=== PATIENT | male | born 1965 | race Caucasian/White ===

== ENCOUNTER 2021-08-22 15:19 | Inpatient (IN) ==
[2021-08-22] MEDS ORDERED: 0.9 % SODIUM CHLORIDE 2,000 ML IV ONE (15:33)
--- NOTE | 2021-08-22 15:40 | Emergency Department Note ---
Recheck HPI General Chief Complaint: Recheck/Abnormal Lab/Rx Stated Complaint: Sent here by PCP Time Seen by Provider: 08/22/21 15:27 Source: patient Mode of arrival: ambulatory Limitations: no limitations History of Present Illness HPI Narrative: Narrative: The patient presents to the ED at the request of his primary doctor for abnormal labs. The patient is unclear which labs were abnormal but a review of the chart per the nursing staff shows that he has acute kidney injury. Patient says that he has been vomiting for the last 2 weeks. He has intermittently been able to tolerate sips of fluid. He has not had a bowel movement in several days of he is passing gas. He feels distended but denies abdominal pain. He has a general malaise but denies any fever, cough, dysuria, or chest pain. He denies any focal weakness. Related Data Previous Rx's Medication Instructions Recorded Auto cpap machine #1 ea 07/03/18 nicotine 14 mg/24 hr daily 1 patch TRANSDERMA Q24H #28 each 10/11/20 transdermal patch losartan 100 mg tablet 100 mg PO QDAY #90 tab 10/27/20 amlodipine 5 mg tablet (Norvasc) 5 mg PO QDAY #90 tab 01/11/21 atorvastatin 40 mg tablet 40 mg PO QDAY #90 tab 01/11/21 hydrochlorothiazide 25 mg tablet 25 mg PO QDAY #90 tab 01/11/21 metformin 750 mg tablet,extended 750 mg PO BID #60 tab 01/11/21 release 24 hr hydroxychloroquine 200 mg tablet 200 mg PO BID #180 tab 02/28/21 ondansetron 4 mg disintegrating 4 mg PO Q8H PRN #10 tab 08/12/21 tablet Allergies Allergy/AdvReac Type Severity Reaction Status Date / Time No Known Drug Allergies Allergy Verified 08/22/21 15:23 Review of Systems ROS ROS Narrative: Narrative: All systems ED: reviewed and negative except as stated. PFS Narrative Patient History Narrative: Narrative: Medical/Surgical/Family History All Active Problems (Updated 08/22/21 @ 16:28 by Ortega Cm MD) HALEIGH (acute kidney injury) (Acute) Acute dehydration (Acute) Vomiting (Acute) Abnormal weight loss (Acute) Nausea & vomiting (Acute) Vitamin D deficiency (Acute) Strep throat (Acute) Encounter for smoking cessation counseling (Acute) COPD (chronic obstructive pulmonary disease) (Chronic) Hypoxia (Chronic) Wellness examination (Chronic) Myalgia and myositis (Acute) Elevated aldolase level (Acute) Type 2 diabetes mellitus (Chronic) Rheumatoid arthritis (Chronic) Encounter for long-term (current) use of high-risk medication (Chronic) Elevated liver enzymes (Chronic) Inflammatory arthritis (Chronic) Rheumatoid factor positive (Chronic) CRP elevated (Acute) Rash and other nonspecific skin eruption (Chronic) Back pain (Chronic) Polyarthralgia (Chronic) Hypertension (Chronic) Pre-diabetes (Chronic) Hyperlipidemia (Chronic) Marijuana abuse (Chronic) Tobacco abuse (Chronic) Collapsed vertebra of multiple sites in spine as manifestation of underlying disease (Chronic) Arthritis of joint of lower extremity (Chronic) Arthritis of shoulder (Chronic) Arthritis of back (Chronic) Arthritis of knee (Chronic) Joint pain (Chronic) Insomnia (Chronic) Hypertension, essential (Chronic) Lung disease (Chronic) Arthritis (Chronic) Medical History (Updated 08/22/21 @ 16:28 by Ortega Cm MD) Abnormal weight loss Arthritis Arthritis of back Arthritis of joint of lower extremity Arthritis of knee Arthritis of shoulder Back pain Collapsed vertebra of multiple sites in spine as manifestation of underlying disease COPD (chronic obstructive pulmonary disease) CRP elevated Elevated aldolase level Elevated liver enzymes Encounter for long-term (current) use of high-risk medication Encounter for smoking cessation counseling Hypertension, essential Hypoxia Inflammatory arthritis Insomnia Joint pain Lung disease Marijuana abuse smokes and some ingested Myalgia and myositis Nausea & vomiting Polyarthralgia Pre-diabetes Rash and other nonspecific skin eruption Rheumatoid arthritis Rheumatoid factor positive Tobacco abuse Type 2 diabetes mellitus Vitamin D deficiency Wellness examination 12/16/17 Surgical History No pertinent past surgical history Family History Unknown No pertinent family history Social History Smoking Status: Current every day smoker Alcohol Intake Frequency: 0-2 drinks per day Substance Use: marijuana Exam Narrative Narrative: Narrative: General Limitations: no limitations General appearance: Present alert and in no apparent distress Head Head: Present atraumatic and normal inspection Eye Eye: Present normal appearance ENT ENT: Present mucous membranes dry; Absent mucous membranes moist Neck Neck: Present normal inspection, full ROM and trachea midline; Absent meningismus Chest Chest: Present normal inspection and symmetric chest wall rise Respiratory Respiratory: Present normal lung sounds bilaterally; Absent respiratory distress Cardiovascular Cardiovascular: Present normal rhythm and tachycardia; Absent regular rate Adbominal Abdominal: Present soft, distention (Mild), tenderness (Diffuse with no focal) and normal bowel sounds; Absent guarding or rebound Extremities Extremities: Present normal inspection and full ROM Back Back: Present full ROM; Absent CVA tenderness (R) or CVA tenderness (L) Neurological Neurological: Present alert, oriented X3, CN II-XII intact and other (NIH stroke scale 0); Absent motor sensory deficit Expanded Neurological Patient oriented to: Present person, place and time Speech: Present fluid speech CRANIAL NERVES: EOM function (II, III, IV, ): Normal, facial sensation (V): Normal, facial palsy (VII): Normal and tongue deviation (XII): Normal CEREBELLAR FUNCTION: heel to vicente: Normal CEREBELLAR FUNCTION: normal gait Motor strength - LUE: 5/5 Motor strength - RUE: 5/5 Motor strength - LLE: 5/5 Motor strength - RLE: 5/5 SENSORY EXAM UPPER EXTREMITY: Normal: light touch SENSORY EXAM LOWER EXTREMITY: Normal: light touch Coma Scale Eye Opening: Spontaneous Coma Scale Motor Response: Obeys Commands Coma Scale Verbal Response: Oriented Coma Scale Total: 15 Psychiatric Psychiatric: Present normal affect and normal mood Skin Skin: Present warm (WNL) and dry Course Vital Signs Vital signs: Vital Signs Temperature 97.9 F 08/22/21 15:19 Pulse Rate 110 H 08/22/21 15:19 Respiratory Rate 18 08/22/21 15:19 Blood Pressure 163/96 08/22/21 15:19 Pulse Oximetry (%) 100 08/22/21 15:19 Temperature 97.9 F 08/22/21 15:19 Pulse Rate 99 H 08/22/21 16:24 Respiratory Rate 14 08/22/21 16:24 Blood Pressure 176/105 08/22/21 16:24 Pulse Oximetry (%) 100 08/22/21 16:24 [facility] MDM Narrative Medical decision making narrative: Narrative: The patient presents with outpatient labs showing acute kidney injury. Patient does appear extremely dehydrated on exam. It could be simply from fluid loss. He does have a slightly distended abdomen as well. There could be an obstructive uropathy. Plan to give 2 L of fluid and recheck labs. We will get a noncontrast CT of the abdomen. Patient most likely will need to be admitted to the hospital. It will be up to the hospitalist whether they feel he is appropriate for this facility or will need to be transferred. At change of shift, the patient is handed over to the oncoming physician who will follow up on the remaining studies and then make appropriate disposition Lab Data Lab results reviewed: Yes I reviewed the patient's lab results. Result diagrams: 08/22/21 15:44 08/22/21 15:44 Labs: Lab Results 08/22/21 Range/Units 15:44 WBC 9.3 (4.5-11.0) K/mcL RBC 3.11 L (4.63-6.08) M/mcL Hgb 9.2 L (13.7-17.5) g/dL Hct 28.0 L (40.1-51.0) % MCV 90.0 (80.0-100.0) fL MCH 29.6 (26.0-34.0) pg MCHC 32.9 (31.0-36.0) g/dL RDW 12.5 (11.5-14.5) % Plt Count 214 (140-440) K/mcL MPV 12.1 H (7.4-10.4) fL Neut % (Auto) 85.8 H (38.0-78.0) % Lymph % (Auto) 4.4 L (15.5-49.0) % [place] % (Auto) 9.3 (1.0-12.0) % Eos % (Auto) 0.3 (0.0-7.0) % Baso % (Auto) 0.2 (0.0-2.0) % Lymph # (Auto) 0.41 L (1.50-4.80) K/mcL [place] # (Auto) 0.86 (0.10-0.90) K/mcL Eos # (Auto) 0.03 (0.00-0.70) K/mcL Baso # (Auto) 0.02 (0.00-0.30) K/mcL Absolute Neutrophils 7.93 (1.80-8.00) K/mcL Radiology Data Radiology results reviewed: Yes I reviewed the patient's radiology results. Radiology results narrative: MPRESSION: 1. Distended urinary bladder. Bladder outlet obstruction is possible although the prostate is not significantly enlarged 2. Moderate bilateral hydronephrosis 3. Cholelithiasis 4. Multilevel degenerative disc disease 5. Atherosclerotic calcification. No abdominal aortic aneurysm Discharge Plan Patient/Caregiver Discharge Instructions Pt seen by [facility]/PA only: No Clinical Impression: HALEIGH (acute kidney injury), Acute dehydration Vomiting Qualifiers: Vomiting type: unspecified Nausea presence: unspecified Qualified Code(s): R11.10 - Vomiting, unspecified Patient Disposition: Still a Patient Follow up with: Celeste Fontanez DO [Primary Care Provider] - Prescriptions: No Action (DME) Auto cpap machine Qty: 1 0RF Dose Instruction: As directed Rx Instructions: Sleep with cpap on at 9-55hop24. losartan 100 mg tablet 100 mg PO QDAY Qty: 90 1RF hydroxychloroquine 200 mg tablet 200 mg PO BID Qty: 180 0RF metformin 750 mg tablet extended release 24 hr 750 mg PO BID Qty: 60 3RF Rx Instructions: administer with a meal amlodipine [Norvasc] 5 mg tablet 5 mg PO QDAY Qty: 90 1RF atorvastatin 40 mg tablet 40 mg PO QDAY Qty: 90 1RF hydrochlorothiazide 25 mg tablet 25 mg PO QDAY Qty: 90 1RF nicotine 14 mg/24 hr patch 24 hour 1 patch TRANSDERMA Q24H Qty: 28 6RF ondansetron 4 mg tablet,disintegrating 4 mg PO Q8H PRN (Reason: nausea and vomiting) Qty: 10 0RF
[2021-08-22 16:23] LABS: Basophils # (Auto) 0.02 K/mcL (0.00-0.30); Basophils % (Auto) 0.2 % (0.0-2.0); Eosinophils # (Auto) 0.03 K/mcL (0.00-0.70); Eosinophils % (Auto) 0.3 % (0.0-7.0); Hemoglobin 9.2 g/dL (13.7-17.5); Lymphocytes # (Auto) 0.41 K/mcL (1.50-4.80); Lymphocytes % (Auto) 4.4 % (15.5-49.0); Mean Corpuscular HGB Conc 32.9 g/dL (31.0-36.0); Mean Platelet Volume 12.1 fL (7.4-10.4); Monocytes # (Auto) 0.86 K/mcL (0.10-0.90); Monocytes % (Auto) 9.3 % (1.0-12.0); Neutrophils % (Auto) 85.8 % (38.0-78.0); Platelet Count 214 K/mcL (140-440); RBC 3.11 M/mcL (4.63-6.08); Red Cell Distribution Width 12.5 % (11.5-14.5); WBC 9.3 K/mcL (4.5-11.0)
--- NOTE | 2021-08-22 16:37 | Cat Scan Report ---
INDICATION: Abdominal pain COMPARISON: None. TECHNIQUE: Axial images were obtained through the abdomen and pelvis. Sagittally and coronally reformatted images. FINDINGS: Lung bases:No pulmonary parenchymal density. No calcified or noncalcified nodule. No pleural or pericardial effusion Liver:Negative to the limits of noncontrast enhanced examination. Liver contour is smooth without evidence for cirrhosis Gallbladder, bilary:Gallbladder is collapsed. There is a calcified stone or stones present. No dilated bile ducts Spleen:No splenomegaly Pancreas:No pancreatic mass. No peripancreatic abnormality Adrenal glands:Negative Kidneys,ureters,bladder:There is bilateral hydronephrosis considered moderate. No obstructing or nonobstructing renal calculi. No detectable mass Ureters are dilated proximally. Distal ureters are not well visualized. Markedly distended urinary bladder. Bladder measures 23 x 17 x 14 cm. No detectable bladder mass. Prostate is not significantly enlarged. Gastrointestinal:. Colon: Findings consistent with constipation. No detectable colonic mass. No diverticulitis. Negative small bowel. No mechanical small bowel obstruction. No bowel wall thickening. No focal abnormality. Negative stomach and duodenum. No focal abnormality. Appendix: The appendix is not visualized. No evidence for appendicitis Vascular:There is extensive atherosclerotic calcification. No abdominal aortic aneurysm. Lymphatic:No retroperitoneal adenopathy. No significant mesenteric adenopathy. Mesentery, peritoneum:No free intraperitoneal fluid. No intra-abdominal abscess. No pneumoperitoneum Reproductive:Prostate is not significantly enlarged Musculoskeletal:Severe degenerative disc disease at L3-4, L4-5, L5-S1. Sacrum and pelvis are negative. No anterior abdominal wall or inguinal hernia. IMPRESSION: 1. Distended urinary bladder. Bladder outlet obstruction is possible although the prostate is not significantly enlarged 2. Moderate bilateral hydronephrosis 3. Cholelithiasis 4. Multilevel degenerative disc disease 5. Atherosclerotic calcification. No abdominal aortic aneurysm The exam was performed using radiation dose optimization techniques including, but not limited to, automated exposure control, adjustment of the mA and/or kV according to patient size and use of iterative reconstruction technique. Interpreted and Authenticated by: Steve Monaco 08/22/21
[2021-08-22 16:52] LABS: ALT/SGPT 11 U/L (<40); AST/SGOT 15 U/L (<40); Alkaline Phosphatase 94 U/L (39-117); Bilirubin,Total 0.3 mg/dL (0.1-1.0); Blood Urea Nitrogen 193 mg/dL (6-20); Calcium 9.7 mg/dL (8.6-10.4); Carbon Dioxide 19 mmol/L (22-30); Chloride 92 mmol/L (96-108); Globulin 4.2 gm/dL (2.2-3.7); Glomerular Filtration Rate 5; Glucose 167 mg/dL (70-105)
--- NOTE | 2021-08-22 17:34 | Ultrasound Report ---
INDICATION: ruq TECHNIQUE: Grayscale and color flow Doppler spectral imaging COMPARISON: None. FINDINGS: Gallbladder:Gallbladder is nearly collapsed. There are echogenic foci within the gallbladder consistent with gallstones. There may be small polyps. Gallbladder is not well evaluated due to lack of distention. No pericholecystic fluid. No positive Snow sign. Common bile duct:No intra or extrahepatic bile duct dilatation.. Common bile duct measures3 mm Liver:No solid or cystic hepatic mass. Liver contour is smooth. No ascites.. Liver [id number] cm Portal vein:Normal hepatopedal portal venous flow Pancreas:Visualized portions of the pancreas are normal IMPRESSION: 1. Collapsed gallbladder, suboptimally evaluated 2. Cholelithiasis Interpreted and Authenticated by: Steve Monaco 08/22/21
[2021-08-22 17:45] LABS: Appearance,Urine CLEAR (Clear); Bilirubin,Urine Negative (Negative); Color,Urine YELLOW; Culture Indicated,Urine No; Glucose,Urine (UA) Negative (Negative); Ketones,Urine Negative (Negative); Leukocyte Esterase,Urine Negative /uL (Negative); Mucus,Urine FEW /hpf; Nitrate,Urine Negative (Negative); Protein,Urine Negative (Negative); Specific Gravity,Urine 1.008 (1.000-1.035); Urine Blood >=1.0 mg/dL (Negative); Urine RBC 0 /hpf (0-3); Urine Squamous Epithelial Cell 0 /hpf (0-4); Urine WBC 1 /hpf (0-4); Urobilinogen,Urine Negative
--- NOTE | 2021-08-22 20:13 | Nephrology Consult Note ---
HPI Data of Consult Patient: new to practice Consult date: 08/23/21 Requesting physician: Jefry Humphreys Primary Care Provider: Celeste Fontanez DO Consult Narrative Patient Information: Note initiated : 08/22/21 at 8:01 pm Service Date, if different from initiated Date: [] Patient: Darell Askew 56 y/o M admitted on for Sent here by PCP. Chief Complaint: [] Reason for consult: ARF cc:: CC: Patient is a 56 yr old male with Hx of T2DM w/o retinopathy or nephropathy and previous GFR > 60 cc/min. He has a Hx of HTN with poor control on ARB, B-blockers, CCB, and thiazide diuretics. Saw his PCP 08/21 and labs with SCr 10.5 mg/dl. He was sent to the ED and repeat labs confirmed ARF. Imaging with bilateral hydronephrosis and engorged bladder Rios placed with large volume of urine in 1 hr. Asked for repeat labs to be performed prior to patient disposition as we cannot provide HD here in the /[place]. Repeat SCr 9.1 so OK to admit Stop Metformin, HCTZ, Losartan, and B-tung if still prescribed. Avoid NSAIDs and HAWTHORNE II inhibitors Continue rios. Start flomax. In ED, reported initial urine volume of ~4 liters and initially clear urine but by 2130 hr grossly blood c/w hemorrhagic cystitis. Laboratory Tests 06/17/19 10/11/20 01/11/21 09:51 09:19 11:44 Sodium Potassium Chloride Carbon Dioxide Anion Gap BUN Creatinine 1.0 0.8 0.8 POC Creatinine GFR Calculation Glucose Calcium AST ALT Alkaline Phosphatase Albumin 08/21/21 08/22/21 08/22/21 15:45 15:44 20:10 Sodium 135 Potassium 3.7 Chloride 92 L Carbon Dioxide 19 L Anion Gap 24.0 H BUN 193 H* Creatinine 10.9 H* 9.5 H* POC Creatinine 9.1 H* GFR Calculation 5 Glucose 167 H Calcium 9.7 AST 15 ALT 11 Alkaline Phosphatase 94 Albumin 4.0 08/22/21 16:08 Urine Color Yellow Urine Appearance Clear Urine pH 5.0 Ur Specific [place] 1.008 Urine Protein Negative Urine Glucose (UA) Negative Urine Ketones Negative Urine Occult Blood >=1.0 A Urine Nitrate Negative Urine Bilirubin Negative Urine Urobilinogen Negative Ur Leukocyte Esterase Negative Urine RBC 0 Urine WBC 1 Ur Squamous Epith Cells 0 Urine Bacteria None Urine Mucus Few A Laboratory Tests 08/23/21 05:21 Sodium 144 Potassium 3.6 Chloride 110 H Carbon Dioxide 19 L Anion Gap 15.0 BUN 131 H* Creatinine 5.4 H* GFR Calculation 11 Glucose 194 H Calcium 9.3 Phosphorus 5.9 H* Magnesium 3.1 H AST 12 ALT 10 Alkaline Phosphatase 84 Lactate Dehydrogenase 224 Albumin 3.3 Globulin 3.7 Albumin/Globulin Ratio 0.[address] Scan 08/22/2021: Current Medications Acetaminophen (Acetaminophen 325 Mg Tablet) 650 mg PO Q4-6HP PRN; Protocol PRN Reason: Per Pain Protocol/Fever > 101 Last Admin: 08/23/21 00:23 Dose: 650 mg Documented by: Bisacodyl (Bisacodyl 10 Mg Supp.Rect) 10 mg MN Q2-3DAYS PRN PRN Reason: Constipation Docusate Sodium (Docusate Sodium 100 Mg Capsule) 100 mg PO BID [facility] Last Admin: 08/22/21 23:08 Dose: Not Given Documented by: Acetaminophen (Ofirmev) 650 mg in 65 mls @ 130 mls/hr IV Q6HP PRN; Protocol PRN Reason: Per Pain Protocol/Fever > 101 Potassium Chloride/Dextrose/Sod Cl (Dextrose 5%-1/2ns W/20meq Kcl) 1,000 mls @ 125 mls/hr IV .Q8H [facility] Last Infusion: 08/23/21 07:00 Dose: 170 mls/hr Documented by: Sodium Chloride (Sodium Chloride 0.9%) 250 mls @ 20 mls/hr IV .[id number] [facility] Stop: 08/23/21 20:44 Melatonin (Melatonin 3 Mg Tablet) 3 mg PO HSP PRN PRN Reason: Insomnia Ondansetron HCl (Ondansetron 4 Mg Odt Tablet) 4 mg SL Q4-6HP PRN; Protocol PRN Reason: Nausea And Vomiting Ondansetron HCl (Ondansetron 4 Mg/2 Ml Vial) 4 mg IV Q4-6HP PRN; Protocol PRN Reason: Nausea And Vomiting Pneumococcal Polyvalent Vaccine (Pneumococcal 23-Kerry P-Sac Vac 0.5 Ml Syringe) 0.5 ml IM .ONCE ONE Stop: 08/24/21 10:01 Polyethylene Glycol (Polyethylene Glycol 3350 17 Gm Packet) 17 gm PO DAILYP PRN PRN Reason: Constipation Senna/Docusate Sodium (Sennosides/Docusate Sodium 1 Tab Tablet) [address] [facility] Last Admin: 08/22/21 23:08 Dose: Not Given Documented by: Sodium Chloride (0.9 % Sodium Chloride 10 Ml Syringe) 10 ml IV Q8 [facility] Last Admin: 08/23/21 05:30 Dose: 10 ml Documented by: Tamsulosin HCl (Tamsulosin 0.4 Mg Capsule) 0.[address] [facility] Last Admin: 08/22/21 23:08 Dose: Not Given Documented by: Dx and Recommendations: 1. HTN No HCTZ or LOSARTAN OK for Amlodipine No B-blockers due to HR < 60/min PRN Hydralazine for BP > 180 systolic Will become mildly volume contracted so this will help with a post obstructive urine output 2. T2DM on Metformin w/o retinopathy Hold metformin due to AG (+) acidosis 3. Acute urinary retention Rios and flomax Urology consult 4. Acute renal failure due to OBSTRUCTIVE UROPATHY Replace urine output 1/2 cc per cc of urine with 1/2NS with KCl 20 mEq/L and MgSO4 2gm/L 5. Metabolic acidosis with (+) AG and hypokalemia Do NOT replace HCO3 as this will worsen K level 6. Electrolyte abnormalities Monitor K, Mg and PO4 7. Hemorrhagic Cystitis due to rapid bladder decompression Review of Systems All systems: reviewed and no additional remarkable complaints except as stated Review of systems: A poor historian No recollection of CKD No Nsaids (+) HTN Constitutional Constitutional: Present as per HPI; Absent fever(s) or frequent falls EENT Eyes: Absent change in vision Cardiovascular Cardiovascular: Present as per HPI; Absent pedal edema Respiratory Respiratory: Absent cough or hemoptysis Gastrointestinal Gastrointestinal: Present as per HPI Genitourinary Genitourinary: as per HPI Musculoskeletal Musculoskeletal: Present as per HPI Integumentary Integumentary: Absent unusual bruising or jaundice Neurological Neurological: Present as per HPI Psychiatric Psychiatric: Present as per HPI Endocrine Endocrine: Absent polydipsia, polyphagia or polyuria Hematologic/Lymphatic Hematologic/Lymphatic: Absent easy bleeding or easy bruising Allergic/Immunologic Allergic/Immunologic: Absent uticaria or lip swelling PFSH PFSH All Active Problems (Updated 08/23/21 @ 07:27 by Phu Calvo MD) Arthritis (Chronic) Lung disease (Chronic) Hypertension, essential (Chronic) Insomnia (Chronic) Joint pain (Chronic) Arthritis of knee (Chronic) Arthritis of back (Chronic) Arthritis of shoulder (Chronic) Arthritis of joint of lower extremity (Chronic) Collapsed vertebra of multiple sites in spine as manifestation of underlying disease (Chronic) Tobacco abuse (Chronic) Marijuana abuse (Chronic) Hyperlipidemia (Chronic) Pre-diabetes (Chronic) Hypertension (Chronic) Polyarthralgia (Chronic) Back pain (Chronic) Rash and other nonspecific skin eruption (Chronic) CRP elevated (Acute) Rheumatoid factor positive (Chronic) Inflammatory arthritis (Chronic) Elevated liver enzymes (Chronic) Encounter for long-term (current) use of high-risk medication (Chronic) Rheumatoid arthritis (Chronic) Type 2 diabetes mellitus (Chronic) Elevated aldolase level (Acute) Myalgia and myositis (Acute) Wellness examination (Chronic) Hypoxia (Chronic) COPD (chronic obstructive pulmonary disease) (Chronic) Encounter for smoking cessation counseling (Acute) Strep throat (Acute) Vitamin D deficiency (Acute) Nausea & vomiting (Acute) Abnormal weight loss (Acute) HALEIGH (acute kidney injury) (Acute) Obstructive uropathy (Acute) Gross hematuria (Acute) Medical History Abnormal weight loss Arthritis Arthritis of back Arthritis of joint of lower extremity Arthritis of knee Arthritis of shoulder Back pain Collapsed vertebra of multiple sites in spine as manifestation of underlying disease COPD (chronic obstructive pulmonary disease) CRP elevated Elevated aldolase level Elevated liver enzymes Encounter for long-term (current) use of high-risk medication Encounter for smoking cessation counseling Hypertension, essential Hypoxia Inflammatory arthritis Insomnia Joint pain Lung disease Marijuana abuse smokes and some ingested Myalgia and myositis Nausea & vomiting Polyarthralgia Pre-diabetes Rash and other nonspecific skin eruption Rheumatoid arthritis Rheumatoid factor positive Tobacco abuse Type 2 diabetes mellitus Vitamin D deficiency Wellness examination 12/16/17 Surgical History No pertinent past surgical history Family History Unknown No pertinent family history Social History marital status: single smoking status: Current every day smoker tobacco type: cigarettes per day: 6 pack-years: 60, quit status and counseling given quit status: considering quitting alcohol intake frequency: 0-2 drinks per day substance use type: marijuana MEDS/ALLERGIES Home Medications and Allergies Home Medications Medication Instructions Recorded Confirmed Type nicotine 14 mg/24 hr daily 1 patch TRANSDERMA Q24H #28 each 10/11/20 08/23/21 Rx transdermal patch losartan 100 mg tablet 100 mg PO QDAY #90 tab 10/27/20 08/23/21 Rx amlodipine 5 mg tablet (Norvasc) 5 mg PO QDAY #90 tab 01/11/21 08/23/21 Rx atorvastatin 40 mg tablet 40 mg PO QDAY #90 tab 01/11/21 08/23/21 Rx hydrochlorothiazide 25 mg tablet 25 mg PO QDAY #90 tab 01/11/21 08/23/21 Rx metformin 750 mg tablet,extended 750 mg PO BID #60 tab 01/11/21 08/23/21 Rx release 24 hr hydroxychloroquine 200 mg tablet 200 mg PO BID #180 tab 02/28/21 08/23/21 Rx Allergies Allergy/AdvReac Type Severity Reaction Status Date / Time No Known Drug Allergies Allergy Verified 08/22/21 15:23 Physical Examination Vital Signs Vital signs: Temp Pulse Resp BP Pulse Ox 36.6 C 53 L 17 141/88 100 08/22/21 15:19 08/22/21 19:46 08/22/21 19:46 08/22/21 19:46 08/22/21 19:46 General Appearance General appearance: frail EENT EENT: ATNC, PERRL, mucous membranes dry and vision intact Neck Neck: no JVD and no carotid bruit Respiratory Respiratory: course breath sounds Cardiovascular Cardiology: mid-systolic murmur, no edema, normal S1 and normal S2 Gastrointestinal Gastrointestinal: normoactive bowel sounds, no tenderness and no guarding Integumentary Integumentary: no rash Neurologic Neurologic: no focal deficit, strength 5/5 and CN 3-12 intact Musculoskeletal Musculoskeletal: no erythema, no cyanosis and no clubbing Additional Exam Additional exam: low mentation and speech Results Lab Results Result Diagrams: 08/23/21 05:21 08/23/21 05:21 Lab results: Most recent lab results Creatinine 9.5 mg/dL (0.7-1.2) H* 08/22/21 15:44 Calcium 9.7 mg/dL (8.6-10.4) 08/22/21 15:44 A/P Narrative A/P Narrative: 1. HTN No HCTZ or LOSARTAN OK for Amlodipine No B-blockers due to HR < 60/min PRN Hydralazine for BP > 180 systolic Will become mildly volume contracted so this will help with a post obstructive urine output 2. T2DM on Metformin w/o retinopathy Hold metformin due to AG (+) acidosis 3. Acute urinary retention Rios and flomax Urology consult 4. Acute renal failure due to OBSTRUCTIVE UROPATHY Replace urine output 1/2 cc per cc of urine with 1/2NS with KCl 20 mEq/L and MgSO4 2gm/L 5. Metabolic acidosis with (+) AG and hypokalemia Do NOT replace HCO3 as this will worsen K level 6. Electrolyte abnormalities Monitor K, Mg and PO4 7. Hemorrhagic cystitis Bladder irrigation Time Spent With Patient Time: Total time spent is greater than 50% in coordination of care (as documented) at patient's floor/unit and/or counseling patient:
[2021-08-22 20:18] LABS: POC Creatinine 9.1 mg/dL (0.6-1.2)
[2021-08-22] MEDS ORDERED: TAMSULOSIN 0.4 MG CAPSULE PO ONE (20:22)
--- NOTE | 2021-08-22 20:55 | Internal Med History&Physical ---
HPI History of Present Illness Patient information: Note initiated : 08/22/21 at 8:52 pm Service Date, if different from initiated Date: [] Patient: Darell Askew a 56 y/o M admitted on for Sent here by PCP. Chief Complaint: [] History of present illness: Mr. Askew is a [address] Fontanez's patient with a history of HTN/DM type II/tobacco dependence/HLD who presents to the ER after being directed by PCP office with elevated creatinine of 10.5. Patient has been feeling weak fatigued and complaining of difficulty urination over the last couple of week. He has noted increasing abdominal distention, loss of appetite, fatigue, malaise, weakness and weight loss. He has been experiencing associated nausea/vomiting and has not been able to function over the last couple of weeks. He lives with his sister who has been helping him out during this time. He however denies cough, fever, chills, chest pain, rash, joint pain. He endorses to exertional shortness of breath Initial work-up in the ER was consistent with acute renal failure with a BUN of 195, creatinine 9.5. CT abdomen reveals bilateral hydronephrosis/obstructive uropathy. Kat's catheter was placed and subsequently nephrology was consulted. Patient had 2300 cc output following Kat's placement. Subsequently hospitalist service was consulted for admission. At the time of my evaluation patient is alert but anxious. He was able to answer most the questions. Denies NSAID intake, changes in medications. He denies hematuria, weight loss, shortness of breath but endorses to constipation over the few days. He also endorses to loss of appetite. Review of systems 10 point review system was performed and is negative except for ones discussed above PFSH PFSH All Active Problems (Updated 08/23/21 @ 07:27 by Phu Calvo MD) Arthritis (Chronic) Lung disease (Chronic) Hypertension, essential (Chronic) Insomnia (Chronic) Joint pain (Chronic) Arthritis of knee (Chronic) Arthritis of back (Chronic) Arthritis of shoulder (Chronic) Arthritis of joint of lower extremity (Chronic) Collapsed vertebra of multiple sites in spine as manifestation of underlying disease (Chronic) Tobacco abuse (Chronic) Marijuana abuse (Chronic) Hyperlipidemia (Chronic) Pre-diabetes (Chronic) Hypertension (Chronic) Polyarthralgia (Chronic) Back pain (Chronic) Rash and other nonspecific skin eruption (Chronic) CRP elevated (Acute) Rheumatoid factor positive (Chronic) Inflammatory arthritis (Chronic) Elevated liver enzymes (Chronic) Encounter for long-term (current) use of high-risk medication (Chronic) Rheumatoid arthritis (Chronic) Type 2 diabetes mellitus (Chronic) Elevated aldolase level (Acute) Myalgia and myositis (Acute) Wellness examination (Chronic) Hypoxia (Chronic) COPD (chronic obstructive pulmonary disease) (Chronic) Encounter for smoking cessation counseling (Acute) Strep throat (Acute) Vitamin D deficiency (Acute) Nausea & vomiting (Acute) Abnormal weight loss (Acute) HALEIGH (acute kidney injury) (Acute) Obstructive uropathy (Acute) Gross hematuria (Acute) Medical History Abnormal weight loss Arthritis Arthritis of back Arthritis of joint of lower extremity Arthritis of knee Arthritis of shoulder Back pain Collapsed vertebra of multiple sites in spine as manifestation of underlying disease COPD (chronic obstructive pulmonary disease) CRP elevated Elevated aldolase level Elevated liver enzymes Encounter for long-term (current) use of high-risk medication Encounter for smoking cessation counseling Hypertension, essential Hypoxia Inflammatory arthritis Insomnia Joint pain Lung disease Marijuana abuse smokes and some ingested Myalgia and myositis Nausea & vomiting Polyarthralgia Pre-diabetes Rash and other nonspecific skin eruption Rheumatoid arthritis Rheumatoid factor positive Tobacco abuse Type 2 diabetes mellitus Vitamin D deficiency Wellness examination 12/16/17 Surgical History No pertinent past surgical history Family History Unknown No pertinent family history Social History marital status: single smoking status: Current every day smoker tobacco type: cigarettes per day: 6 pack-years: 60, quit status and counseling given quit status: considering quitting alcohol intake frequency: 0-2 drinks per day substance use type: marijuana MEDS/ALLERGIES Home Medications and Allergies Home Medications Medication Instructions Recorded Confirmed Type Auto cpap machine #1 ea 07/03/18 10/11/20 Rx nicotine 14 mg/24 hr daily 1 patch TRANSDERMA Q24H #28 each 10/11/20 01/11/21 Rx transdermal patch losartan 100 mg tablet 100 mg PO QDAY #90 tab 10/27/20 08/21/21 Rx amlodipine 5 mg tablet (Norvasc) 5 mg PO QDAY #90 tab 01/11/21 08/21/21 Rx atorvastatin 40 mg tablet 40 mg PO QDAY #90 tab 01/11/21 08/21/21 Rx hydrochlorothiazide 25 mg tablet 25 mg PO QDAY #90 tab 01/11/21 08/21/21 Rx metformin 750 mg tablet,extended 750 mg PO BID #60 tab 01/11/21 08/21/21 Rx release 24 hr hydroxychloroquine 200 mg tablet 200 mg PO BID #180 tab 02/28/21 08/21/21 Rx ondansetron 4 mg disintegrating 4 mg PO Q8H PRN #10 tab 08/12/21 Rx tablet Allergies Allergy/AdvReac Type Severity Reaction Status Date / Time No Known Drug Allergies Allergy Verified 08/22/21 15:23 EXAM Constitutional Vitals: Temp Pulse Resp BP Pulse Ox 97.9 F 51 L 10 L 147/96 100 08/22/21 15:19 08/22/21 20:31 08/22/21 20:31 08/22/21 20:31 08/22/21 20:31 Fatigue disshelved and anxious Head normocephalic Oral cavity dry No ear or nose discharge Eye no subconjunctival pallor, movement symmetrical S1-S2 regular, bradycardia in 50s Nonlabored breathing Nondistended nontender abdomen Kat is draining bloody urine Lower extremity no cyanosis clubbing or joint swelling, stasis dermatosis noted Skin no suspicious lesion Psych anxious but no hallucination Neuro normal higher function on limited neuro exam DATA Data Completed and Pending Labs: Labs from last 24 hours 08/22/21 08/22/21 08/22/21 20:10 16:08 15:44 WBC RBC Hgb Hct MCV MCH MCHC RDW Plt Count MPV Neut % (Auto) Lymph % (Auto) [place] % (Auto) Eos % (Auto) Baso % (Auto) Lymph # (Auto) [place] # (Auto) Eos # (Auto) Baso # (Auto) Absolute Neutrophils Sodium 135 Potassium 3.7 Chloride 92 L Carbon Dioxide 19 L Anion Gap 24.0 H BUN 193 H* Creatinine 9.5 H* POC Creatinine 9.1 H* GFR Calculation 5 Glucose 167 H Calcium 9.7 Total Bilirubin 0.3 AST 15 ALT 11 Alkaline Phosphatase 94 Total Protein 8.2 Albumin 4.0 Globulin 4.2 H Albumin/Globulin Ratio 1.0 Urine Color Yellow Urine Appearance Clear Urine pH 5.0 Ur Specific [place] 1.008 Urine Protein Negative Urine Glucose (UA) Negative Urine Ketones Negative Urine Occult Blood >=1.0 A Urine Nitrate Negative Urine Bilirubin Negative Urine Urobilinogen Negative Ur Leukocyte Esterase Negative Urine RBC 0 Urine WBC 1 Ur Squamous Epith Cells 0 Urine Bacteria None Urine Mucus Few A Ur Culture Indicated? No 08/22/21 15:44 WBC 9.3 RBC 3.11 L Hgb 9.2 L Hct 28.0 L MCV 90.0 MCH 29.6 MCHC 32.9 RDW 12.5 Plt Count 214 MPV 12.1 H Neut % (Auto) 85.8 H Lymph % (Auto) 4.4 L [place] % (Auto) 9.3 Eos % (Auto) 0.3 Baso % (Auto) 0.2 Lymph # (Auto) 0.41 L [place] # (Auto) 0.86 Eos # (Auto) 0.03 Baso # (Auto) 0.02 Absolute Neutrophils 7.93 Sodium Potassium Chloride Carbon Dioxide Anion Gap BUN Creatinine POC Creatinine GFR Calculation Glucose Calcium Total Bilirubin AST ALT Alkaline Phosphatase Total Protein Albumin Globulin Albumin/Globulin Ratio Urine Color Urine Appearance Urine pH Ur Specific [place] Urine Protein Urine Glucose (UA) Urine Ketones Urine Occult Blood Urine Nitrate Urine Bilirubin Urine Urobilinogen Ur Leukocyte Esterase Urine RBC Urine WBC Ur Squamous Epith Cells Urine Bacteria Urine Mucus Ur Culture Indicated? A/P Narrative A/P Narrative: * Acute renal failure likely postobstructive. 16 Amharic Kat's catheter placed in ER. Nephrology on board. Continue crystalloids at half cc /cc urine output/hold losartan and NSAIDs. * Obstructive uropathy with postobstructive diuresis. Urology consulted. Recommends changing to 22 Amharic Kat's catheter blockage noted. * Hematuria-urology consulted. Recommends 22-gauge Amharic Kat's * History of hypertension continue amlodipine per nephrology. Hold MURIEL inhibitor/thiazide * DM type II sliding-scale insulin/CC diet * HLD continue statin * Tobacco dependence continue nicotine patch * Full code Plan * Inpatient admission * Nephrology and urology consult * Kat's catheter decompression * Crystalloids * Renal/CC diet Time Spent With Patient Time: Total time spent is greater than 50% in coordination of care (as documented) at patient's floor/unit and/or counseling patient: Total time spent with greater than 50% in coordination of care (as documented) at patient's floor/unit and/or counseling patient:: Greater than 35 minutes
--- NOTE | 2021-08-22 20:59 | Emergency Department Note ---
HPI General Chief complaint: Recheck/Abnormal Lab/Rx Stated complaint: Sent here by PCP Time Seen by Provider: 08/22/21 15:27 Source: patient Mode of arrival: ambulatory Limitations: no limitations History of Present Illness HPI Narrative: Narrative: Patient was signed out to me by Dr. Cm, and I agree with work-up and plan thus far. Is my understand the patient was sent in here due to abnormal labs by his PCP. Upon presentation he was distended and had abdominal tenderness as well as quite the firm abdomen. Bladder scan showed a large amount of urine greater than 2700 and his bladder and so Kat catheter was going to be placed, blood work had been ordered as well as imaging at signout these were pending. I did personally seen evaluate the patient myself, he is resting bed comfortably, talking normally appropriately. He does not appear to be in acute discomfort or distress anymore. He states he feels much better after the Kat catheter was placed, and his abdominal exam is benign with no significant rebound or guarding. Patient had a large amount of urine come out of the Kat catheter after it was placed, with over 4300 cc of urine been obtained thus far. Patient's creatinine initially was 10.5, and imaging revealed bilateral moderate hydronephrosis consistent with likely a an obstructive process. I discussed the case with the on-call [employer] factory worker, Dr. Albarran, who recommended repeat creatinine in a few hours to ensure that it was improving. If it was this was likely secondary to obstruction and would likely continue to improve and the patient could stay here at our facility as he would unlikely need dialysis. We did check this and it is now down to 9.1. Dr. Albarran states that he is comfortable with the patient staying here, recommend starting Flomax and admission to the hospital. I discussed case the hospitalist, agrees the plan of admission at this time. Patient is resting comfortably bed and has no further concerns or questions currently. Related Data Previous Rx's Medication Instructions Recorded Auto cpap machine #1 ea 07/03/18 nicotine 14 mg/24 hr daily 1 patch TRANSDERMA Q24H #28 each 10/11/20 transdermal patch losartan 100 mg tablet 100 mg PO QDAY #90 tab 10/27/20 amlodipine 5 mg tablet (Norvasc) 5 mg PO QDAY #90 tab 01/11/21 atorvastatin 40 mg tablet 40 mg PO QDAY #90 tab 01/11/21 hydrochlorothiazide 25 mg tablet 25 mg PO QDAY #90 tab 01/11/21 metformin 750 mg tablet,extended 750 mg PO BID #60 tab 01/11/21 release 24 hr hydroxychloroquine 200 mg tablet 200 mg PO BID #180 tab 02/28/21 ondansetron 4 mg disintegrating 4 mg PO Q8H PRN #10 tab 08/12/21 tablet Allergies Allergy/AdvReac Type Severity Reaction Status Date / Time No Known Drug Allergies Allergy Verified 08/22/21 15:23 Review of Systems ROS ROS Narrative: Narrative: PFSH Narrative Patient History Narrative: Narrative: Medical/Surgical/Family History All Active Problems (Updated 08/22/21 @ 20:59 by Wing Cavanaugh DO) HALEIGH (acute kidney injury) (Acute) Obstructive uropathy (Acute) Abnormal weight loss (Acute) Nausea & vomiting (Acute) Vitamin D deficiency (Acute) Strep throat (Acute) Encounter for smoking cessation counseling (Acute) COPD (chronic obstructive pulmonary disease) (Chronic) Hypoxia (Chronic) Wellness examination (Chronic) Myalgia and myositis (Acute) Elevated aldolase level (Acute) Type 2 diabetes mellitus (Chronic) Rheumatoid arthritis (Chronic) Encounter for long-term (current) use of high-risk medication (Chronic) Elevated liver enzymes (Chronic) Inflammatory arthritis (Chronic) Rheumatoid factor positive (Chronic) CRP elevated (Acute) Rash and other nonspecific skin eruption (Chronic) Back pain (Chronic) Polyarthralgia (Chronic) Hypertension (Chronic) Pre-diabetes (Chronic) Hyperlipidemia (Chronic) Marijuana abuse (Chronic) Tobacco abuse (Chronic) Collapsed vertebra of multiple sites in spine as manifestation of underlying disease (Chronic) Arthritis of joint of lower extremity (Chronic) Arthritis of shoulder (Chronic) Arthritis of back (Chronic) Arthritis of knee (Chronic) Joint pain (Chronic) Insomnia (Chronic) Hypertension, essential (Chronic) Lung disease (Chronic) Arthritis (Chronic) Medical History (Updated 08/22/21 @ 20:59 by Wing Cavanaugh DO) Abnormal weight loss Arthritis Arthritis of back Arthritis of joint of lower extremity Arthritis of knee Arthritis of shoulder Back pain Collapsed vertebra of multiple sites in spine as manifestation of underlying disease COPD (chronic obstructive pulmonary disease) CRP elevated Elevated aldolase level Elevated liver enzymes Encounter for long-term (current) use of high-risk medication Encounter for smoking cessation counseling Hypertension, essential Hypoxia Inflammatory arthritis Insomnia Joint pain Lung disease Marijuana abuse smokes and some ingested Myalgia and myositis Nausea & vomiting Polyarthralgia Pre-diabetes Rash and other nonspecific skin eruption Rheumatoid arthritis Rheumatoid factor positive Tobacco abuse Type 2 diabetes mellitus Vitamin D deficiency Wellness examination 12/16/17 Surgical History No pertinent past surgical history Family History Unknown No pertinent family history Social History Smoking Status: Current every day smoker Alcohol Intake Frequency: 0-2 drinks per day Substance Use: marijuana Exam Narrative Narrative: Narrative: General Limitations: no limitations Course Vital Signs Vital signs: Vital Signs Temperature 97.9 F 08/22/21 15:19 Pulse Rate 110 H 08/22/21 15:19 Respiratory Rate 18 08/22/21 15:19 Blood Pressure 163/96 08/22/21 15:19 Pulse Oximetry (%) 100 08/22/21 15:19 Temperature 97.9 F 08/22/21 15:19 Pulse Rate 51 L 08/22/21 20:31 Respiratory Rate 10 L 08/22/21 20:31 Blood Pressure 147/96 08/22/21 20:31 Pulse Oximetry (%) 100 08/22/21 20:31 MDM MDM Narrative Medical decision making narrative: Narrative: Lab Data Result diagrams: 08/22/21 15:44 08/22/21 15:44 Labs: Lab Results 08/22/21 08/22/21 08/22/21 Range/Units 15:44 15:44 16:08 WBC 9.3 (4.5-11.0) K/mcL RBC 3.11 L (4.63-6.08) M/mcL Hgb 9.2 L (13.7-17.5) g/dL Hct 28.0 L (40.1-51.0) % MCV 90.0 (80.0-100.0) fL MCH 29.6 (26.0-34.0) pg MCHC 32.9 (31.0-36.0) g/dL RDW 12.5 (11.5-14.5) % Plt Count 214 (140-440) K/mcL MPV 12.1 H (7.4-10.4) fL Neut % (Auto) 85.8 H (38.0-78.0) % Lymph % (Auto) 4.4 L (15.5-49.0) % [place] % (Auto) 9.3 (1.0-12.0) % Eos % (Auto) 0.3 (0.0-7.0) % Baso % (Auto) 0.2 (0.0-2.0) % Lymph # (Auto) 0.41 L (1.50-4.80) K/mcL [place] # (Auto) 0.86 (0.10-0.90) K/mcL Eos # (Auto) 0.03 (0.00-0.70) K/mcL Baso # (Auto) 0.02 (0.00-0.30) K/mcL Absolute Neutrophils 7.93 (1.80-8.00) K/mcL Sodium 135 (133-145) mmol/L Potassium 3.7 (3.3-5.1) mmol/L Chloride 92 L (96-108) mmol/L Carbon Dioxide 19 L (22-30) mmol/L Anion Gap 24.0 H (8.0-16.0) BUN 193 H* (6-20) mg/dL Creatinine 9.5 H* (0.7-1.2) mg/dL POC Creatinine (0.6-1.2) mg/dL GFR Calculation 5 Glucose 167 H (70-105) mg/dL Calcium 9.7 (8.6-10.4) mg/dL Total Bilirubin 0.3 (0.1-1.0) mg/dL AST 15 (<40) U/L ALT 11 (<40) U/L Alkaline Phosphatase 94 (39-117) U/L Total Protein 8.2 (5.9-8.4) gm/dL Albumin 4.0 (3.2-5.2) gm/dL Globulin 4.2 H (2.2-3.7) gm/dL Albumin/Globulin Ratio 1.0 (1.0-2.3) Urine Color Yellow Urine Appearance Clear (Clear) Urine pH 5.0 (5.0-9.0) Ur Specific [place] 1.008 (1.000-1.035) Urine Protein Negative (Negative) mg/dL Urine Glucose (UA) Negative (Negative) mg/dL Urine Ketones Negative (Negative) mg/dL Urine Occult Blood >=1.0 A (Negative) mg/dL Urine Nitrate Negative (Negative) Urine Bilirubin Negative (Negative) mg/dL Urine Urobilinogen Negative mg/dL Ur Leukocyte Esterase Negative (Negative) /uL Urine RBC 0 (0-3) /hpf Urine WBC 1 (0-4) /hpf Ur Squamous Epith Cells 0 (0-4) /hpf Urine Bacteria None (0) /hpf Urine Mucus Few A (None) /hpf Ur Culture Indicated? No 08/22/21 Range/Units 20:10 WBC (4.5-11.0) K/mcL RBC (4.63-6.08) M/mcL Hgb (13.7-17.5) g/dL Hct (40.1-51.0) % MCV (80.0-100.0) fL MCH (26.0-34.0) pg MCHC (31.0-36.0) g/dL RDW (11.5-14.5) % Plt Count (140-440) K/mcL MPV (7.4-10.4) fL Neut % (Auto) (38.0-78.0) % Lymph % (Auto) (15.5-49.0) % [place] % (Auto) (1.0-12.0) % Eos % (Auto) (0.0-7.0) % Baso % (Auto) (0.0-2.0) % Lymph # (Auto) (1.50-4.80) K/mcL [place] # (Auto) (0.10-0.90) K/mcL Eos # (Auto) (0.00-0.70) K/mcL Baso # (Auto) (0.00-0.30) K/mcL Absolute Neutrophils (1.80-8.00) K/mcL Sodium (133-145) mmol/L Potassium (3.3-5.1) mmol/L Chloride (96-108) mmol/L Carbon Dioxide (22-30) mmol/L Anion Gap (8.0-16.0) BUN (6-20) mg/dL Creatinine (0.7-1.2) mg/dL POC Creatinine 9.1 H* (0.6-1.2) mg/dL GFR Calculation Glucose (70-105) mg/dL Calcium (8.6-10.4) mg/dL Total Bilirubin (0.1-1.0) mg/dL AST (<40) U/L ALT (<40) U/L Alkaline Phosphatase (39-117) U/L Total Protein (5.9-8.4) gm/dL Albumin (3.2-5.2) gm/dL Globulin (2.2-3.7) gm/dL Albumin/Globulin Ratio (1.0-2.3) Urine Color Urine Appearance (Clear) Urine pH (5.0-9.0) Ur Specific [facility] (1.000-1.035) Urine Protein (Negative) mg/dL Urine Glucose (UA) (Negative) mg/dL Urine Ketones (Negative) mg/dL Urine Occult Blood (Negative) mg/dL Urine Nitrate (Negative) Urine Bilirubin (Negative) mg/dL Urine Urobilinogen mg/dL Ur Leukocyte Esterase (Negative) /uL Urine RBC (0-3) /hpf Urine WBC (0-4) /hpf Ur Squamous Epith Cells (0-4) /hpf Urine Bacteria (0) /hpf Urine Mucus (None) /hpf Ur Culture Indicated? Discharge Plan Patient/Caregiver Discharge Instructions Pt seen by LOAN UNDERWRITER/PA only: No Clinical Impression: HALEIGH (acute kidney injury), Obstructive uropathy Patient Disposition: Xfer As Inpt ([facility]) Follow up with: Celeste Fontanez DO [Primary Care Provider] - Prescriptions: No Action (DME) Auto cpap machine Qty: 1 0RF Dose Instruction: As directed Rx Instructions: Sleep with cpap on at [id number]. losartan 100 mg tablet 100 mg PO QDAY Qty: 90 1RF hydroxychloroquine 200 mg tablet 200 mg PO BID Qty: 180 0RF metformin 750 mg tablet extended release 24 hr 750 mg PO BID Qty: 60 3RF Rx Instructions: administer with a meal amlodipine [Norvasc] 5 mg tablet 5 mg PO QDAY Qty: 90 1RF atorvastatin 40 mg tablet 40 mg PO QDAY Qty: 90 1RF hydrochlorothiazide 25 mg tablet 25 mg PO QDAY Qty: 90 1RF nicotine 14 mg/24 hr patch 24 hour 1 patch TRANSDERMA Q24H Qty: 28 6RF ondansetron 4 mg tablet,disintegrating 4 mg PO Q8H PRN (Reason: nausea and vomiting) Qty: 10 0RF
[2021-08-22] MEDS ORDERED: ONDANSETRON 4 MG ODT TABLET SL PRN (22:30)
[2021-08-22] MEDS ORDERED: ACETAMINOPHEN 650 MG/65 ML BAG IV PRN (22:30)
[2021-08-22] MEDS ORDERED: MELATONIN 3 MG TABLET PO PRN (22:30)
[2021-08-22] MEDS ORDERED: HEPARIN 5,000 UNIT/ML VIAL SQ SCH (22:30)
[2021-08-22] MEDS ORDERED: ONDANSETRON 4 MG/2 ML VIAL IV PRN (22:30)
[2021-08-22] MEDS ORDERED: BISACODYL 10 MG SUPP.RECT PR PRN (22:30)
[2021-08-22] MEDS ORDERED: MAGNESIUM SULFATE 8.12 MEQ/2 ML VIAL ONE (22:37)
[2021-08-22] MEDS: DEXTROSE 5%-1/2NS W/20MEQ KCL 1,000 ML IV SCH (22:40)
[2021-08-22] MEDS: 0.9 % SODIUM CHLORIDE 10 ML SYRINGE IV SCH (22:40)
[2021-08-22] MEDS: DOCUSATE SODIUM 100 MG CAPSULE PO SCH (23:08)
[2021-08-22] MEDS: SENNOSIDES/DOCUSATE SODIUM 1 TAB TABLET PO SCH (23:08)
[2021-08-22] MEDS: TAMSULOSIN 0.4 MG CAPSULE PO SCH (23:08)
[2021-08-23] MEDS ORDERED: ACETAMINOPHEN 325 MG TABLET PO ONE (00:20)
[2021-08-23] MEDS: ACETAMINOPHEN 325 MG TABLET PO PRN ×2 (00:23→18:40)
[2021-08-23] MEDS ORDERED: MAGNESIUM SULFATE 8.12 MEQ/2 ML VIAL ONE (03:46)
[2021-08-23] MEDS: DEXTROSE 5%-1/2NS W/20MEQ KCL 1,000 ML IV SCH (05:09)
[2021-08-23] MEDS: 0.9 % SODIUM CHLORIDE 10 ML SYRINGE IV SCH ×3 (05:30→21:10)
[2021-08-23 07:13] LABS: Basophils # (Auto) 0.02 K/mcL (0.00-0.30); Basophils % (Auto) 0.4 % (0.0-2.0); Eosinophils # (Auto) 0.03 K/mcL (0.00-0.70); Eosinophils % (Auto) 0.5 % (0.0-7.0); Hematocrit 24.6 % (40.1-51.0); Lymphocytes # (Auto) 0.45 K/mcL (1.50-4.80); Lymphocytes % (Auto) 8.2 % (15.5-49.0); Mean Cell Volume 91.1 fL (80.0-100.0); Mean Corpuscular HGB Conc 32.5 g/dL (31.0-36.0); Monocytes # (Auto) 0.64 K/mcL (0.10-0.90); Monocytes % (Auto) 11.7 % (1.0-12.0); Neutrophils % (Auto) 79.2 % (38.0-78.0); Platelet Count 190 K/mcL (140-440); Red Cell Distribution Width 12.6 % (11.5-14.5); WBC 5.5 K/mcL (4.5-11.0)
--- NOTE | 2021-08-23 07:33 | Urology Consult Note ---
HPI Data of Consult Patient: new to practice Consult date: 08/22/21 Requesting physician: Jefry Humphreys Primary Care Provider: Celeste Fontanez DO Consult Narrative Patient Information: Note initiated : 08/23/21 at 7:17 am Service Date, if different from initiated Date: [] Patient: Darell Askew 56 y/o M admitted on 08/22/21 for Sent here by PCP after his primary care provider checked labs and found that his serum creatinine was 10.5 on August 21. Imaging was performed in the ER consisting of both a CT scan of the abdomen and pelvis and an abdominal ultrasound. This revealed bilateral hydroureteronephrosis with a bladder that was full and distended. The prostate was not noted to be enlarged on imaging. A 16 [place] Kat catheter was placed in the emergency department and initially approximately 2300 cc of urine were obtained. Soon after the urine began draining it became bloody. In speaking with Mr. Askew this morning he does not appear to be a good historian. He reports that until recently he had no difficulties with u rination. He had no problems with flow. Recently, however, he did begin to have leakage. He has no known family prostate cancer. He denies any other significant medical problems although a review of his chart indicates that he has hypertension, hyperlipidemia, and type 2 diabetes mellitus. There is a question as to whether he has been taking his medications recently. Overnight the 16 [place] Kat catheter became clogged with clot and the catheter was removed and replaced with a 22 [place] Kat catheter which was hand irrigated for clot. The catheter has been draining well since that time. The urine remains a clear red color. Chief complaint: Renal failure, urinary retention cc:: CC: Jefry Humphreys Review of Systems All systems: reviewed and no additional remarkable complaints except as stated Constitutional Constitutional: Present lethargy and malaise Genitourinary Genitourinary: as per HPI and urinary incontinence PFSH PFSH All Active Problems (Updated 08/23/21 @ 07:27 by Phu Calvo MD) Gross hematuria (Acute) Arthritis (Chronic) Lung disease (Chronic) Hypertension, essential (Chronic) Insomnia (Chronic) Joint pain (Chronic) Arthritis of knee (Chronic) Arthritis of back (Chronic) Arthritis of shoulder (Chronic) Arthritis of joint of lower extremity (Chronic) Collapsed vertebra of multiple sites in spine as manifestation of underlying disease (Chronic) Tobacco abuse (Chronic) Marijuana abuse (Chronic) Hyperlipidemia (Chronic) Pre-diabetes (Chronic) Hypertension (Chronic) Polyarthralgia (Chronic) Back pain (Chronic) Rash and other nonspecific skin eruption (Chronic) CRP elevated (Acute) Rheumatoid factor positive (Chronic) Inflammatory arthritis (Chronic) Elevated liver enzymes (Chronic) Encounter for long-term (current) use of high-risk medication (Chronic) Rheumatoid arthritis (Chronic) Type 2 diabetes mellitus (Chronic) Elevated aldolase level (Acute) Myalgia and myositis (Acute) Wellness examination (Chronic) Hypoxia (Chronic) COPD (chronic obstructive pulmonary disease) (Chronic) Encounter for smoking cessation counseling (Acute) Strep throat (Acute) Vitamin D deficiency (Acute) Nausea & vomiting (Acute) Abnormal weight loss (Acute) HALEIGH (acute kidney injury) (Acute) Obstructive uropathy (Acute) Medical History Abnormal weight loss Arthritis Arthritis of back Arthritis of joint of lower extremity Arthritis of knee Arthritis of shoulder Back pain Collapsed vertebra of multiple sites in spine as manifestation of underlying disease COPD (chronic obstructive pulmonary disease) CRP elevated Elevated aldolase level Elevated liver enzymes Encounter for long-term (current) use of high-risk medication Encounter for smoking cessation counseling Hypertension, essential Hypoxia Inflammatory arthritis Insomnia Joint pain Lung disease Marijuana abuse smokes and some ingested Myalgia and myositis Nausea & vomiting Polyarthralgia Pre-diabetes Rash and other nonspecific skin eruption Rheumatoid arthritis Rheumatoid factor positive Tobacco abuse Type 2 diabetes mellitus Vitamin D deficiency Wellness examination 12/16/17 Surgical History No pertinent past surgical history Family History Unknown No pertinent family history Social History marital status: single smoking status: Current every day smoker tobacco type: cigarettes per day: 6 pack-years: 60, quit status and counseling given quit status: considering quitting alcohol intake frequency: 0-2 drinks per day substance use type: marijuana MEDS/ALLERGIES Home Medications and Allergies Home Medications Medication Instructions Recorded Confirmed Type Auto cpap machine #1 ea 07/03/18 10/11/20 Rx nicotine 14 mg/24 hr daily 1 patch TRANSDERMA Q24H #28 each 10/11/20 01/11/21 Rx transdermal patch losartan 100 mg tablet 100 mg PO QDAY #90 tab 10/27/20 08/21/21 Rx amlodipine 5 mg tablet (Norvasc) 5 mg PO QDAY #90 tab 01/11/21 08/21/21 Rx atorvastatin 40 mg tablet 40 mg PO QDAY #90 tab 01/11/21 08/21/21 Rx hydrochlorothiazide 25 mg tablet 25 mg PO QDAY #90 tab 01/11/21 08/21/21 Rx metformin 750 mg tablet,extended 750 mg PO BID #60 tab 01/11/21 08/21/21 Rx release 24 hr hydroxychloroquine 200 mg tablet 200 mg PO BID #180 tab 02/28/21 08/21/21 Rx ondansetron 4 mg disintegrating 4 mg PO Q8H PRN #10 tab 08/12/21 Rx tablet Allergies Allergy/AdvReac Type Severity Reaction Status Date / Time No Known Drug Allergies Allergy Verified 08/22/21 15:23 Physical Examination Vital Signs Vital signs: Temp Pulse Resp BP Pulse Ox 97.4 F 96 H 14 125/87 100 08/23/21 04:01 08/23/21 04:01 08/23/21 04:01 08/23/21 04:01 08/23/21 04:01 General physical appearance General physical exam: no pain, chronically ill and other (The patient does not appear to be a healthy person in general. He is disheveled. He is having abnormal tongue movements. He has few teeth.) Head Head exam IM: Present atraumatic, normal inspection and normocephalic Neck Neck exam: trachea midline Cardiovascular Cardiovascular exam IM: Present normal rate and rhythm Respiratory Respiratory exam: normal expansion and normal respiratory effort Abdomen Abdomen: Present soft and non tender Neurologic Neurologic: Present disoriented, confused and memory loss Psychiatric Psychiatric: Present oriented to time, oriented to person and oriented to place; Absent memory intact Results Labs Result diagrams: 08/23/21 05:21 08/22/21 15:44 Labs: Abnormal lab results 08/22/21 08/22/21 08/22/21 Range/Units 15:44 15:44 16:08 RBC 3.11 L (4.63-6.08) M/mcL Hgb 9.2 L (13.7-17.5) g/dL Hct 28.0 L (40.1-51.0) % MPV 12.1 H (7.4-10.4) fL Neut % (Auto) 85.8 H (38.0-78.0) % Lymph % (Auto) 4.4 L (15.5-49.0) % Lymph # (Auto) 0.41 L (1.50-4.80) K/mcL Chloride 92 L (96-108) mmol/L Carbon Dioxide 19 L (22-30) mmol/L Anion Gap 24.0 H (8.0-16.0) BUN 193 H* (6-20) mg/dL Creatinine 9.5 H* (0.7-1.2) mg/dL POC Creatinine (0.6-1.2) mg/dL Glucose 167 H (70-105) mg/dL Globulin 4.2 H (2.2-3.7) gm/dL Urine Occult Blood >=1.0 A (Negative) mg/dL Urine Mucus Few A (None) /hpf 08/22/21 08/23/21 Range/Units 20:10 05:21 RBC 2.70 L (4.63-6.08) M/mcL Hgb 8.0 L (13.7-17.5) g/dL Hct 24.6 L (40.1-51.0) % MPV 12.0 H (7.4-10.4) fL Neut % (Auto) 79.2 H (38.0-78.0) % Lymph % (Auto) 8.2 L (15.5-49.0) % Lymph # (Auto) 0.45 L (1.50-4.80) K/mcL Chloride (96-108) mmol/L Carbon Dioxide (22-30) mmol/L Anion Gap (8.0-16.0) BUN (6-20) mg/dL Creatinine (0.7-1.2) mg/dL POC Creatinine 9.1 H* (0.6-1.2) mg/dL Glucose (70-105) mg/dL Globulin (2.2-3.7) gm/dL Urine Occult Blood (Negative) mg/dL Urine Mucus (None) /hpf Diabetes panel 08/22/21 Range/Units 15:44 Sodium 135 (133-145) mmol/L Potassium 3.7 (3.3-5.1) mmol/L Chloride 92 L (96-108) mmol/L Carbon Dioxide 19 L (22-30) mmol/L BUN 193 H* (6-20) mg/dL Creatinine 9.5 H* (0.7-1.2) mg/dL Glucose 167 H (70-105) mg/dL Calcium 9.7 (8.6-10.4) mg/dL AST 15 (<40) U/L ALT 11 (<40) U/L Alkaline Phosphatase 94 (39-117) U/L Total Protein 8.2 (5.9-8.4) gm/dL Albumin 4.0 (3.2-5.2) gm/dL Calcium panel 08/22/21 Range/Units 15:44 Calcium 9.7 (8.6-10.4) mg/dL Albumin 4.0 (3.2-5.2) gm/dL Pituitary panel 08/22/21 Range/Units 15:44 Sodium 135 (133-145) mmol/L Potassium 3.7 (3.3-5.1) mmol/L Chloride 92 L (96-108) mmol/L Carbon Dioxide 19 L (22-30) mmol/L BUN 193 H* (6-20) mg/dL Creatinine 9.5 H* (0.7-1.2) mg/dL Glucose 167 H (70-105) mg/dL Calcium 9.7 (8.6-10.4) mg/dL Adrenal panel 08/22/21 Range/Units 15:44 Sodium 135 (133-145) mmol/L Potassium 3.7 (3.3-5.1) mmol/L Chloride 92 L (96-108) mmol/L Carbon Dioxide 19 L (22-30) mmol/L BUN 193 H* (6-20) mg/dL Creatinine 9.5 H* (0.7-1.2) mg/dL Glucose 167 H (70-105) mg/dL Calcium 9.7 (8.6-10.4) mg/dL Total Bilirubin 0.3 (0.1-1.0) mg/dL AST 15 (<40) U/L ALT 11 (<40) U/L Alkaline Phosphatase 94 (39-117) U/L Total Protein 8.2 (5.9-8.4) gm/dL Albumin 4.0 (3.2-5.2) gm/dL All other labs normal. A/P Assessment and plan (1) Obstructive uropathy: Status: Acute (2) Gross hematuria: Status: Acute Narrative A/P Narrative: Darell is a 56-year-old male who appears to be a poor historian as he denies any recent significant medical issues. He was brought to the hospital yesterday due to laboratory work-up obtained by his primary care provider showing a serum creatinine of over 10. Imaging performed in the hospital was personally reviewed. Imaging revealed bilateral hydroureteronephrosis with a significantly distended bladder going well above the umbilicus. The CT does not reveal any significant enlargement of the prostate. There did not appear to be any obvious bladder or renal masses. This was a noncontrasted study. In the emergency room a 16 [place] Kat catheter was placed and 2300 mL of urine were initially obtained. After decompression of the bladder the urine became bloody as is often the case after overstretching of the urothelium. Urology consultation was obtained both due to the obstruction and the gross hematuria. The hospitalist service was instructed to clamp the catheter for a period of time which I instructed them not to do. We discussed that a 16 [place] Kat catheter is generally not adequate for gross hematuria. I asked the hospitalist service that if the catheter became clogged overnight it should be exchanged for 22 or 20 [place] catheter and then hand irrigated to remove any clot. Overnight the 16 [place] catheter did become clogged with clot and it was removed and replaced with a 22 [place] catheter which was hand irrigated. This morning the urine remains clear medium red and continues to flow. Other than ensuring that the urine continues to flow, there is no other intervention that is necessary at the current time. Generally this type of hematuria is self-limited and should resolve within about 24 to 48 hours with no further intervention if necessary we will hand irrigate the catheter as needed and possibly start continuous bladder irrigation through a three-way catheter if we are sure that there are no clots in the bladder. Once the patient recovers from this current episode of acute renal failure or reaches his baseline, we will then consider further intervention such as an office cystoscopy and urine cytology to try to ascertain the cause of his urinary retention. Until that time his Kat catheter will need to remain in place and he should not have a voiding trial. If once his renal failure resolves he is a reliable patient we could instruct him how to perform clean intermittent catheterization if we think that he will comply with instructions. I have advised nursing that should he have any difficulty with the catheter they should give me a call. We will make sure that the patient has patient follow-up with us in our office. Time Spent With Patient Time: Total time spent is greater than 50% in coordination of care (as documented) at patient's floor/unit and/or counseling patient:
[2021-08-23] MEDS ORDERED: 0.9 % SODIUM CHLORIDE 250 ML IV SCH (08:15)
[2021-08-23 08:30] LABS: ALT/SGPT 10 U/L (<40); AST/SGOT 12 U/L (<40); Albumin 3.3 gm/dL (3.2-5.2); Albumin/Globulin Ratio 0.9 (1.0-2.3); Alkaline Phosphatase 84 U/L (39-117); Bilirubin,Direct < 0.2 mg/dL (0-0.3); Bilirubin,Total 0.2 mg/dL (0.1-1.0); Blood Urea Nitrogen 131 mg/dL (6-20); Calcium 9.3 mg/dL (8.6-10.4); Carbon Dioxide 19 mmol/L (22-30); Chloride 110 mmol/L (96-108); Globulin 3.7 gm/dL (2.2-3.7); Glomerular Filtration Rate 11; Glucose 194 mg/dL (70-105); Lactate Dehydrogenase 224 U/L (135-225); Phosphorous 5.9 mg/dL (2.5-4.5); Triglycerides 76 mg/dL (<150); Uric Acid 6.7 mg/dL (2.5-8.0)
[2021-08-23] MEDS: DOCUSATE SODIUM 100 MG CAPSULE PO SCH ×2 (09:05→21:08)
[2021-08-23] MEDS: POLYETHYLENE GLYCOL 3350 17 GM PACKET PO PRN (09:05)
--- NOTE | 2021-08-23 10:19 | Internal Med Progress Note ---
SUBJECTIVE Subjective Patient information: Note initiated : 08/23/21 at 10:16 am Service Date, if different from initiated Date: [] Patient: Darell Askew 56 y/o M admitted on 08/22/21 for Sent here by PCP/abn labs. Chief Complaint: [] Interval history: Mr. Askew is a [address] Fontanez's patient with a history of HTN/DM type II/tobacco dependence/HLD who presents to the ER after being directed by PCP office with elevated creatinine of 10.5. Patient has been feeling weak fatigued and complaining of difficulty urination over the last couple of week. He has noted increasing abdominal distention, loss of appetite, fatigue, m alaise, weakness and weight loss. He has been experiencing associated nausea/vomiting and has not been able to function over the last couple of weeks. He lives with his sister who has been helping him out during this time. He however denies cough, fever, chills, chest pain, rash, joint pain. He endorses to exertional shortness of breath Initial work-up in the ER was consistent with acute renal failure with a BUN of 195, creatinine 9.5. CT abdomen reveals bilateral hydronephrosis/obstructive ur opathy. Kat's catheter was placed and subsequently nephrology was consulted. Patient had 2300 cc output following Kat's placement. Subsequently hospitalist service was consulted for admission. At the time of my evaluation patient is alert but anxious. He was able to answer most the questions. Denies NSAID intake, changes in medications. He denies hematuria, weight loss, shortness of breath but endorses to constipation over the few days. He also endorses to loss of appetite. 08/23-patient overnight on management per nephrology on 4 replacement half cc per 1 cc urine output. Extensive hematuria. Status post 22 [place] Kat's catheter placement with flushing. Hemoglobin down to 8 with a baseline hemoglobin 14. [place] blood transfusion today. Urology on board. Creatinine down to 5.5, BUN 131 down from 193, potassium 3.6. Feeling a lot better and appreciative of care. Constitutional Vitals: Vital Signs Temp Pulse Resp BP Pulse Ox 97.2 F 100 H 13 125/85 100 08/23/21 08:01 08/23/21 10:00 08/23/21 10:00 08/23/21 10:00 08/23/21 10:00 Period Temp Pulse Resp BP Sys/Lawson Pulse Ox Last 24 Hr 97.2 F-98.2 F 51-115 8-22 111-181/70-110 95-100 Intake and Output 08/22/21 08/23/21 08/23/21 21:59 05:59 13:59 Intake Total 2946 2200 2244 Output Total 4325 4275 1855 Balance -1379 -2075 389 Weight 64.41 kg 59.903 kg Aldo hematuria Kat's catheter Nondistended abdomen Anxious Intake & Output: Intake & Output 08/22/21 08/23/21 08/23/21 21:59 05:59 13:59 Intake Total 2946 2200 2244 Output Total 4325 4275 1855 Balance -1379 -2075 389 Weight 64.41 kg 59.903 kg Intake: IV 2000 1000 944 Sodium Chloride 0.9% 2,000 ml @ 2000 Wide Open IV .Q0M ONE Rx#: [id number] Dextrose 5%-1/2Ns W/20Meq KCl 1 1000 944 ,000 ml @ 125 mls/hr IV .Q8H [facility] Rx#:[id number] Oral 946 1200 1300 Output: Urine Catheter Amount 4325 2535 1855 Void Amount 1740 Other: Urine Appearance Clear Clear Clear Hematuria Small Blood Clots Reinserted Kat Hematuria Hematuria Small Blood Clots Large Blood Clots Uretheral (Kat) Clear Clear Hematuria Small Blood Clots Urine Color Dark Nubia Bright Red Bright Red Reinserted Kat Bright Red Dark Red Uretheral (Kat) Pale Bright Red OBJ DATA Labs CBC & Chem 7: 08/23/21 05:21 08/23/21 05:21 Labs: Abnormal Lab Results 08/23/21 08/23/21 08/22/21 05:21 05:21 20:10 RBC 2.70 L Hgb 8.0 L Hct 24.6 L MPV 12.0 H Neut % (Auto) 79.2 H Lymph % (Auto) 8.2 L Lymph # (Auto) 0.45 L Chloride 110 H Carbon Dioxide 19 L Anion Gap BUN 131 H* Creatinine 5.4 H* POC Creatinine 9.1 H* Glucose 194 H Phosphorus 5.9 H* Magnesium 3.1 H Globulin Albumin/Globulin Ratio 0.9 L Urine Occult Blood Urine Mucus 08/22/21 08/22/21 08/22/21 16:08 15:44 15:44 RBC 3.11 L Hgb 9.2 L Hct 28.0 L MPV 12.1 H Neut % (Auto) 85.8 H Lymph % (Auto) 4.4 L Lymph # (Auto) 0.41 L Chloride 92 L Carbon Dioxide 19 L Anion Gap 24.0 H BUN 193 H* Creatinine 9.5 H* POC Creatinine Glucose 167 H Phosphorus Magnesium Globulin 4.2 H Albumin/Globulin Ratio Urine Occult Blood >=1.0 A Urine Mucus Few A Meds: Medications Acetaminophen (Acetaminophen 325 Mg Tablet) 650 mg PO Q4-6HP PRN; Protocol PRN Reason: Per Pain Protocol/Fever > 101 Last Admin: 08/23/21 00:23 Dose: 650 mg Documented by: Bisacodyl (Bisacodyl 10 Mg Supp.Rect) 10 mg [place] Q2-3DAYS PRN PRN Reason: Constipation Docusate Sodium (Docusate Sodium 100 Mg Capsule) 100 mg PO BID [facility] Last Admin: 08/23/21 09:05 Dose: 100 mg Documented by: Acetaminophen (Ofirmev) 650 mg in 65 mls @ 130 mls/hr IV Q6HP PRN; Protocol PRN Reason: Per Pain Protocol/Fever > 101 Potassium Chloride/Dextrose/Sod Cl (Dextrose 5%-1/2ns W/20meq Kcl) 1,000 mls @ 125 mls/hr IV .Q8H [facility] Last Infusion: 08/23/21 10:00 Dose: 72 mls/hr Documented by: Sodium Chloride (Sodium Chloride 0.9%) 250 mls @ 20 mls/hr IV .[id number] [facility] Stop: 08/23/21 20:44 Last Admin: 08/23/21 09:02 Dose: Not Given Documented by: Melatonin (Melatonin 3 Mg Tablet) 3 mg PO HSP PRN PRN Reason: Insomnia Ondansetron HCl (Ondansetron 4 Mg Odt Tablet) 4 mg SL Q4-6HP PRN; Protocol PRN Reason: Nausea And Vomiting Ondansetron HCl (Ondansetron 4 Mg/2 Ml Vial) 4 mg IV Q4-6HP PRN; Protocol PRN Reason: Nausea And Vomiting Pneumococcal Polyvalent Vaccine (Pneumococcal 23-Kerry P-Sac Vac 0.5 Ml Syringe) 0.5 ml IM .ONCE ONE Stop: 08/24/21 10:01 Polyethylene Glycol (Polyethylene Glycol 3350 17 Gm Packet) 17 gm PO DAILYP PRN PRN Reason: Constipation Last Admin: 08/23/21 09:05 Dose: 17 gm Documented by: Senna/Docusate Sodium (Sennosides/Docusate Sodium 1 Tab Tablet) 1 tab PO HS [facility] Last Admin: 08/22/21 23:08 Dose: Not Given Documented by: Sodium Chloride (0.9 % Sodium Chloride 10 Ml Syringe) 10 ml IV Q8 [facility] Last Admin: 08/23/21 05:30 Dose: 10 ml Documented by: Tamsulosin HCl (Tamsulosin 0.4 Mg Capsule) 0.4 mg PO [facility] Last Admin: 08/22/21 23:08 Dose: Not Given Documented by: A/P Narrative A/P Narrative: * Acute renal failure likely postobstructive. 22 [place] Kat's catheter placed last night. Nephrology/urology on board. Continue fluids per nephrology. * Obstructive uropathy with postobstructive diuresis. Urology on board * Hematuria-managed per urology * Blood loss anemia hemoglobin 8, [place] [facility] transfusion today * History of hypertension continue amlodipine per nephrology. Hold MURIEL inhibitor/thiazide * DM type II sliding-scale insulin/CC diet * HLD continue statin * Tobacco dependence continue nicotine patch * Full code Plan * 2 units PRBC transfusion * Nephrology and urology consult * Crystalloids per nephrology * Renal/CC diet Time Spent With Patient Time: Total time spent is greater than 50% in coordination of care (as documented) at patient's floor/unit and/or counseling patient: QUALITY Stroke Symptom Onset Unknown: No VTE Deep Vein Thrombosis/Pulmonary Embolism Present on Admission: No
[2021-08-23] MEDS: INSULIN LISPRO 1 UNIT/0.01 ML UNIT SQ SCH ×3 (12:30→21:08)
[2021-08-23] MEDS: POTASSIUM CHLORIDE 20 MEQ in 0.45 % SODIUM CHLORIDE 1,000 ML IV SCH ×3 (12:38→22:00)
--- NOTE | 2021-08-23 13:20 | Internal Med Progress Note ---
SUBJECTIVE Subjective Patient information: Note initiated : 08/23/21 at 1:15 pm Service Date, if different from initiated Date: [] Patient: Darell Askew a 56 y/o M admitted on 08/22/21 for Sent here by PCP/abn labs. Chief Complaint: [] Interval history: Mr. Askew is a [address] Fontanez's patient with a history of HTN/DM type II/tobacco dependence/HLD who presents to the ER after being directed by PCP office with elevated creatinine of 10.5. Patient has been feeling weak fatigued and complaining of difficulty urination over the last couple of week. He has noted increasing abdominal distention, loss of appetite, fatigue, ma laise, weakness and weight loss. He has been experiencing associated nausea/vomiting and has not been able to function over the last couple of weeks. He lives with his sister who has been helping him out during this time. He however denies cough, fever, chills, chest pain, rash, joint pain. He endorses to exertional shortness of breath Initial work-up in the ER was consistent with acute renal failure with a BUN of 195, creatinine 9.5. CT abdomen reveals bilateral hydronephrosis/obstructive uropathy. Rios's catheter was placed and subsequently nephrology was consulted. Patient had 2300 cc output following Rios's placement. Subsequently hospitalist service was consulted for admission. At the time of my evaluation patient is alert but anxious. He was able to answer most the questions. Denies NSAID intake, changes in medications. He denies hematuria, weight loss, shortness of breath but endorses to constipation over the few days. He also endorses to loss of appetite. 08/23-patient overnight on management per nephrology on 4 replacement half cc per 1 cc urine output. Extensive hematuria. Status post 22 [place] Rios's catheter placement with flushing. Hemoglobin down to 8 with a baseline hemoglobin 14. [place] blood transfusion today. Urology on board. Creatinine down to 5.5, BUN 131 down from 193, potassium 3.6. Feeling a lot better and appreciative of care. Constitutional Vitals: Vital Signs Temp Pulse Resp BP Pulse Ox 98.2 F 50 L 24 H 135/98 77 L 08/23/21 12:10 08/23/21 12:10 08/23/21 12:19 08/23/21 12:10 08/23/21 12:10 Period Temp Pulse Resp BP Sys/Lawson Pulse Ox Last 24 Hr 97.2 F-98.2 F 50-115 8-24 111-181/70-110 77-100 Intake and Output 08/22/21 08/23/21 08/23/21 21:59 05:59 13:59 Intake Total 2946 2200 3392 Output Total 4325 4275 3185 Balance -1379 -2075 207 Weight 64.41 kg 59.903 kg Intake & Output: Intake & Output 08/22/21 08/23/21 08/23/21 21:59 05:59 13:59 Intake Total 2946 2200 3392 Output Total 4325 4275 3185 Balance -1379 -2075 207 Weight 64.41 kg 59.903 kg Intake: IV 2000 1000 1092 Sodium Chloride 0.9% 2,000 ml @ 2000 Wide Open IV .Q0M [facility] Rx#: [id number] Dextrose 5%-1/2Ns W/20Meq KCl 1 1000 1000 ,000 ml @ 125 mls/hr IV .Q8H [facility] Rx#:[id number] Potassium Chloride 20 Meq In 92 Sodium Chloride 0.45% 1,000 ml @ 20 mls/hr IV .Q24H [facility] Rx#: [id number] Oral 946 1200 2300 Output: Urine Catheter Amount 4325 2535 3185 Void Amount 1740 Other: Urine Appearance Clear Clear Clear Hematuria Small Blood Clots Reinserted Rios Hematuria Hematuria Small Blood Clots Large Blood Clots Uretheral (Rios) Clear Clear Hematuria Small Blood Clots Urine Color Dark Nubia Bright Red Bright Red Reinserted Rios Bright Red Dark Red Uretheral (Rios) Pale Bright Red Exam: General: Alert, Awake, No acute Distress Eyes/N/T: EOMI, Head/Neck: neck supple, CV: RRR, No murmurs, Pulm: Clear b/l, no wheezing/rhonchi/rales Abd: soft, nontender, +BS x4 Ext: no clubbing/cyanosis/edema Neuro: Alert, no focal deficits, moves all extremities, Skin: warm/dry OBJ DATA Labs CBC & Chem 7: 08/23/21 05:21 08/23/21 05:21 Labs: Abnormal Lab Results 08/23/21 08/23/21 08/22/21 05:21 05:21 20:10 RBC 2.70 L Hgb 8.0 L Hct 24.6 L MPV 12.0 H Neut % (Auto) 79.2 H Lymph % (Auto) 8.2 L Lymph # (Auto) 0.45 L Chloride 110 H Carbon Dioxide 19 L Anion Gap BUN 131 H* Creatinine 5.4 H* POC Creatinine 9.1 H* Glucose 194 H Phosphorus 5.9 H* Magnesium 3.1 H Globulin Albumin/Globulin Ratio 0.9 L Urine Occult Blood Urine Mucus 08/22/21 08/22/21 08/22/21 16:08 15:44 15:44 RBC 3.11 L Hgb 9.2 L Hct 28.0 L MPV 12.1 H Neut % (Auto) 85.8 H Lymph % (Auto) 4.4 L Lymph # (Auto) 0.41 L Chloride 92 L Carbon Dioxide 19 L Anion Gap 24.0 H BUN 193 H* Creatinine 9.5 H* POC Creatinine Glucose 167 H Phosphorus Magnesium Globulin 4.2 H Albumin/Globulin Ratio Urine Occult Blood >=1.0 A Urine Mucus Few A Meds: Medications Acetaminophen (Acetaminophen 325 Mg Tablet) 650 mg PO Q4-6HP PRN; Protocol PRN Reason: Per Pain Protocol/Fever > 101 Last Admin: 08/23/21 00:23 Dose: 650 mg Documented by: Bisacodyl (Bisacodyl 10 Mg Supp.Rect) 10 mg [place] Q2-3DAYS PRN PRN Reason: Constipation Diagnostic Test (Pha) (Accu-Chek 1 Each Strip) 1 each FS ACHS [facility] Last Admin: 08/23/21 12:02 Dose: 1 each Documented by: Docusate Sodium (Docusate Sodium 100 Mg Capsule) 100 mg PO BID [facility] Last Admin: 08/23/21 09:05 Dose: 100 mg Documented by: Acetaminophen (Ofirmev) 650 mg in 65 mls @ 130 mls/hr IV Q6HP PRN; Protocol PRN Reason: Per Pain Protocol/Fever > 101 Sodium Chloride (Sodium Chloride 0.9%) 250 mls @ 20 mls/hr IV .[id number] [facility] Stop: 08/23/21 20:44 Last Admin: 08/23/21 09:02 Dose: Not Given Documented by: Potassium Chloride 20 meq/ (Sodium Chloride) 1,010 mls @ 20 mls/hr IV .Q24H [facility] Last Infusion: 08/23/21 13:00 Dose: 225 mls/hr Documented by: Insulin Human Lispro (Insulin Lispro 1 Unit/0.01 Ml Unit) 0 unit SQ [facility]; Protocol Last Admin: 08/23/21 12:30 Dose: Not Given Documented by: Melatonin (Melatonin 3 Mg Tablet) 3 mg PO HSP PRN PRN Reason: Insomnia Ondansetron HCl (Ondansetron 4 Mg Odt Tablet) 4 mg SL Q4-6HP PRN; Protocol PRN Reason: Nausea And Vomiting Ondansetron HCl (Ondansetron 4 Mg/2 Ml Vial) 4 mg IV Q4-6HP PRN; Protocol PRN Reason: Nausea And Vomiting Pneumococcal Polyvalent Vaccine (Pneumococcal 23-Kerry P-Sac Vac 0.5 Ml Syringe) 0.5 ml IM .ONCE ONE Stop: 08/24/21 10:01 Polyethylene Glycol (Polyethylene Glycol 3350 17 Gm Packet) 17 gm PO DAILYP PRN PRN Reason: Constipation Last Admin: 08/23/21 09:05 Dose: 17 gm Documented by: Senna/Docusate Sodium (Sennosides/Docusate Sodium 1 Tab Tablet) 1 tab PO [facility] Last Admin: 08/22/21 23:08 Dose: Not Given Documented by: Sodium Chloride (0.9 % Sodium Chloride 10 Ml Syringe) 10 ml IV Q8 [facility] Last Admin: 08/23/21 05:30 Dose: 10 ml Documented by: Tamsulosin HCl (Tamsulosin 0.4 Mg Capsule) 0.4 mg PO [facility] Last Admin: 08/22/21 23:08 Dose: Not Given Documented by: A/P Narrative A/P Narrative: A: *[place]: 2/2 postobstructive uropathy: -improving *UR/Obstructive uropathy w/postobstructive diuresis: -rios in place *Hematuria 2/2 hemorrhagic cystitis: managed per urology *Acute blood loss anemia *HTN: *DM type:HLD continue statin *Tobacco dependence continue nicotine patch Plan: -Urology/nephrology following -Bladder irrigation per urology -2 units PRBC transfusion -Crystalloids per nephrology -amlodipine per nephrology. Hold MURIEL inhibitor/thiazide -flomax -SSI -smoking cessation counseling -ppx: SCD Time Spent With Patient Time: Total time spent is greater than 50% in coordination of care (as documented) at patient's floor/unit and/or counseling patient: QUALITY Stroke Symptom Onset Unknown: No VTE Deep Vein Thrombosis/Pulmonary Embolism Present on Admission: No
[2021-08-23] MEDS ORDERED: POTASSIUM CHLORIDE 20 MEQ/10 ML VIAL IV ONE (19:23)
[2021-08-23] MEDS: TAMSULOSIN 0.4 MG CAPSULE PO SCH (21:08)
[2021-08-23] MEDS: SENNOSIDES/DOCUSATE SODIUM 1 TAB TABLET PO SCH (21:08)
[2021-08-24] MEDS: 0.9 % SODIUM CHLORIDE 10 ML SYRINGE IV SCH ×3 (05:13→20:17)
[2021-08-24] MEDS ORDERED: POTASSIUM CHLORIDE 20 MEQ/10 ML VIAL IV ONE (05:14)
[2021-08-24] MEDS: POTASSIUM CHLORIDE 20 MEQ in 0.45 % SODIUM CHLORIDE 1,000 ML IV SCH (05:26)
[2021-08-24] MEDS: INSULIN LISPRO 1 UNIT/0.01 ML UNIT SQ SCH ×4 (07:09→20:16)
--- NOTE | 2021-08-24 07:38 | Internal Med Progress Note ---
SUBJECTIVE Subjective Patient information: Note initiated : 08/24/21 at 7:35 am Service Date, if different from initiated Date: [] Patient: Darell Askew a 56 y/o M admitted on 08/22/21 for Sent here by PCP/abn labs. Chief Complaint: [] Interval history: Mr. Askew is a [address] Fontanez's patient with a history of HTN/DM type II/tobacco dependence/HLD who presents to the ER after being directed by PCP office with elevated creatinine of 10.5. Patient has been feeling weak fatigued and complaining of difficulty urination over the last couple of week. He has noted increasing abdominal distention, loss of appetite, fatigue, ma laise, weakness and weight loss. He has been experiencing associated nausea/vomiting and has not been able to function over the last couple of weeks. He lives with his sister who has been helping him out during this time. He however denies cough, fever, chills, chest pain, rash, joint pain. He endorses to exertional shortness of breath Initial work-up in the ER was consistent with acute renal failure with a BUN of 195, creatinine 9.5. CT abdomen reveals bilateral hydronephrosis/obstructive uropathy. Rios's catheter was placed and subsequently nephrology was consulted. Patient had 2300 cc output following Rios's placement. Subsequently hospitalist service was consulted for admission. At the time of my evaluation patient is alert but anxious. He was able to answer most the questions. Denies NSAID intake, changes in medications. He denies hematuria, weight loss, shortness of breath but endorses to constipation over the few days. He also endorses to loss of appetite. 08/23-patient overnight on management per nephrology on 4 replacement half cc per 1 cc urine output. Extensive hematuria. Status post 22 [place] Rios's catheter placement with flushing. Hemoglobin down to 8 with a baseline hemoglobin 14. [place] blood transfusion today. Urology on board. Creatinine down to 5.5, BUN 131 down from 193, potassium 3.6. Feeling a lot better and appreciative of care. 08/24 No overnight event or new complaints. Still awaiting follow-up chemistry. Gross hematuria. Review of Systems: denies headache/fever/chills/nausea/vomiting/chest or abdominal pain/cough/dyspnea/diarrhea. Otherwise see above. Constitutional Vitals: Vital Signs Temp Pulse Resp BP Pulse Ox 98.9 F 103 H 14 163/95 100 08/24/21 04:00 08/24/21 06:00 08/24/21 06:00 08/24/21 06:00 08/24/21 06:00 Period Temp Pulse Resp BP Sys/Lawson Pulse Ox Last 24 Hr 97.2 F-99.0 F 50-116 11-24 115-178/77-144 77-100 Intake and Output 08/23/21 08/24/21 08/24/21 21:59 05:59 13:59 Intake Total 3899 1703 656 Output Total 2940 2690 400 Balance 959 -987 256 Weight 61.507 kg Intake & Output: Intake & Output 08/23/21 08/24/21 08/24/21 21:59 05:59 13:59 Intake Total 3899 1703 656 Output Total 2940 2690 400 Balance 959 -987 256 Weight 61.507 kg Intake: Nourishment/Supplement quantity 480 (ml) IV 1854 1148 176 Potassium Chloride 20 Meq In 1854 1148 176 Sodium Chloride 0.45% 1,000 ml @ 20 mls/hr IV .Q24H [facility] Rx#: [id number] Oral 1240 480 480 Blood Product 325 IV - Manual Only 75 Output: Urine Catheter Amount 2940 2690 400 Other: Meal Dinner Percent of Meal Consumed Bites Feeding Ability Independent Nourishment/Supplement name Nepro Urine Appearance Hematuria Hematuria Small Blood Clots Small Blood Clots Urine Color Dark Red Bright Red Bright Red Reinserted Rios Dark Red Exam: General: Alert, Awake, No acute Distress Eyes/N/T: EOMI, Head/Neck: neck supple, CV: RRR, No murmurs, Pulm: Clear b/l, no wheezing/rhonchi/rales Abd: soft, nontender, +BS x4 Ext: no clubbing/cyanosis/edema Neuro: Alert, no focal deficits, moves all extremities, Skin: warm/dry : Gross hematuria OBJ DATA Labs CBC & Chem 7: 08/23/21 05:21 08/23/21 05:21 Labs: Abnormal Lab Results 08/23/21 08/23/21 08/22/21 05:21 05:21 20:10 RBC 2.70 L Hgb 8.0 L Hct 24.6 L MPV 12.0 H Neut % (Auto) 79.2 H Lymph % (Auto) 8.2 L Lymph # (Auto) 0.45 L Chloride 110 H Carbon Dioxide 19 L Anion Gap BUN 131 H* Creatinine 5.4 H* POC Creatinine 9.1 H* Glucose 194 H Phosphorus 5.9 H* Magnesium 3.1 H Globulin Albumin/Globulin Ratio 0.9 L Urine Occult Blood Urine Mucus 08/22/21 08/22/21 08/22/21 16:08 15:44 15:44 RBC 3.11 L Hgb 9.2 L Hct 28.0 L MPV 12.1 H Neut % (Auto) 85.8 H Lymph % (Auto) 4.4 L Lymph # (Auto) 0.41 L Chloride 92 L Carbon Dioxide 19 L Anion Gap 24.0 H BUN 193 H* Creatinine 9.5 H* POC Creatinine Glucose 167 H Phosphorus Magnesium Globulin 4.2 H Albumin/Globulin Ratio Urine Occult Blood >=1.0 A Urine Mucus Few A Meds: Medications Acetaminophen (Acetaminophen 325 Mg Tablet) 650 mg PO Q4-6HP PRN; Protocol PRN Reason: Per Pain Protocol/Fever > 101 Last Admin: 08/23/21 18:40 Dose: 650 mg Documented by: Bisacodyl (Bisacodyl 10 Mg Supp.Rect) 10 mg [place] Q2-3DAYS PRN PRN Reason: Constipation Diagnostic Test (Pha) (Accu-Chek 1 Each Strip) 1 each FS [facility] Last Admin: 08/24/21 07:08 Dose: 1 each Documented by: Docusate Sodium (Docusate Sodium 100 Mg Capsule) 100 mg PO BID [facility] Last Admin: 08/23/21 21:08 Dose: 100 mg Documented by: Acetaminophen (Ofirmev) 650 mg in 65 mls @ 130 mls/hr IV Q6HP PRN; Protocol PRN Reason: Per Pain Protocol/Fever > 101 Potassium Chloride 20 meq/ (Sodium Chloride) 1,010 mls @ 20 mls/hr IV .Q24H [facility] Last Infusion: 08/24/21 07:05 Dose: 200 mls/hr Documented by: Insulin Human Lispro (Insulin Lispro 1 Unit/0.01 Ml Unit) 0 unit SQ [facility]; Protocol Last Admin: 08/24/21 07:09 Dose: Not Given Documented by: Melatonin (Melatonin 3 Mg Tablet) 3 mg PO HSP PRN PRN Reason: Insomnia Last Admin: 08/23/21 21:09 Dose: 3 mg Documented by: Ondansetron HCl (Ondansetron 4 Mg Odt Tablet) 4 mg SL Q4-6HP PRN; Protocol PRN Reason: Nausea And Vomiting Ondansetron HCl (Ondansetron 4 Mg/2 Ml Vial) 4 mg IV Q4-6HP PRN; Protocol PRN Reason: Nausea And Vomiting Pneumococcal Polyvalent Vaccine (Pneumococcal 23-Kerry P-Sac Vac 0.5 Ml Syringe) 0.5 ml IM .ONCE ONE Stop: 08/24/21 10:01 Polyethylene Glycol (Polyethylene Glycol 3350 17 Gm Packet) 17 gm PO DAILYP PRN PRN Reason: Constipation Last Admin: 08/23/21 09:05 Dose: 17 gm Documented by: Senna/Docusate Sodium (Sennosides/Docusate Sodium 1 Tab Tablet) 1 tab PO [facility] Last Admin: 08/23/21 21:08 Dose: 1 tab Documented by: Sodium Chloride (0.9 % Sodium Chloride 10 Ml Syringe) 10 ml IV Q8 [facility] Last Admin: 08/24/21 05:13 Dose: 10 ml Documented by: Tamsulosin HCl (Tamsulosin 0.4 Mg Capsule) 0.4 mg PO [facility] Last Admin: 08/23/21 21:08 Dose: 0.4 mg Documented by: A/P Narrative A/P Narrative: A: *[place]: 2/2 postobstructive uropathy: -improving *UR/Obstructive uropathy w/postobstructive diuresis: -rios in place *Hematuria 2/2 hemorrhagic cystitis: managed per urology *Acute blood loss anemia: 2/2 above -2prbc (08/23) *HTN: *DM type:HLD continue statin *Tobacco dependence continue nicotine patch Plan: -Urology/nephrology following -IVF's per urology/nephrology -prn Bladder irrigation per urology -prn PRBC transfusion -Crystalloids per nephrology -amlodipine per nephrology. Hold MURIEL inhibitor/thiazide -flomax -SSI -smoking cessation counseling -ppx: SCD Time Spent With Patient Time: Total time spent is greater than 50% in coordination of care (as documented) at patient's floor/unit and/or counseling patient: QUALITY Stroke Symptom Onset Unknown: No VTE Deep Vein Thrombosis/Pulmonary Embolism Present on Admission: No
--- NOTE | 2021-08-24 07:51 | Nephrology Progress Note ---
SUBJECTIVE Subjective Patient information: Note initiated : 08/24/21 at 7:49 am Service Date, if different from initiated Date: [] Patient: Darell Askew 56 y/o M admitted on 08/22/21 for Sent here by PCP/abn labs. Chief Complaint: [] Principal diagnosis: ARF due to acute obstructive uropathy Interval history: New elevation of SCr to > 10 mg/dl upon arrival to ED CT scan (+) huge bladder Ruiz placed and 4 liters drained with the development of acute hemorrorhagic cystitis pRBCs for acute drop in HgB Imroved SCr 10=>5 mg/dl with ruiz decompression All RAASI Rx held as well Replacing UOP 50% volume with D5/0.45% NS and KCl Bladder irrigation Urology consult Flomax added Urine cytology sent but initial urine not bloody Vital Signs Temp Pulse Resp BP BP Pulse Ox 08/24/21 06:00 103 H 14 163/95 100 08/24/21 04:00 37.2 C 99 H 18 149/100 99 08/24/21 02:01 99 H 16 135/87 100 08/24/21 00:01 36.6 C 100 H 13 144/91 99 08/23/21 22:01 96 H 14 151/84 100 08/23/21 20:01 36.8 C 106 H 14 139/94 100 08/23/21 19:01 109 H 13 140/95 100 08/23/21 19:00 100 08/23/21 18:17 115 H 12 100 08/23/21 18:01 116 H 14 143/94 97 08/23/21 17:11 101 H 15 143/86 99 08/23/21 17:01 107 H 23 H 134/93 99 08/23/21 16:51 93 H 14 178/96 100 08/23/21 16:41 95 H 12 173/99 99 08/23/21 16:31 96 H 13 154/89 99 08/23/21 16:21 100 H 17 135/85 100 08/23/21 16:16 103 H 19 99 08/23/21 16:11 102 H 15 133/85 100 08/23/21 16:01 37.2 C 102 H 15 134/83 100 08/23/21 15:50 101 H 15 133/85 100 08/23/21 15:40 99 H 14 157/91 100 08/23/21 15:36 102 H 12 169/96 100 08/23/21 15:30 105 H 17 142/125 100 08/23/21 15:20 99 H 14 160/93 99 08/23/21 15:10 95 H 15 161/90 100 08/23/21 15:00 99 H 14 141/87 100 08/23/21 14:50 98 H 16 136/88 100 08/23/21 14:45 96 H 15 100 08/23/21 14:40 95 H 15 150/92 100 08/23/21 14:30 96 H 12 144/89 100 08/23/21 14:20 99 H 14 143/87 100 08/23/21 14:10 99 H 18 153/93 100 08/23/21 14:07 96 H 15 143/86 100 08/23/21 14:00 36.9 C 97 H 16 164/92 164/92 99 08/23/21 13:50 36.8 C 101 H 15 136/103 100 08/23/21 13:40 108 H 14 132/77 100 08/23/21 13:30 107 H 18 132/86 100 08/23/21 13:20 106 H 15 148/90 100 08/23/21 13:10 101 H 15 141/98 100 08/23/21 13:00 106 H 11 L 142/84 100 08/23/21 12:50 101 H 18 158/144 85 L 08/23/21 12:40 16 148/103 08/23/21 12:30 11 L 156/101 08/23/21 12:21 57 L 12 136/93 83 L 08/23/21 12:19 24 H 08/23/21 12:10 36.8 C 50 L 13 135/98 77 L 08/23/21 12:00 36.7 C 109 H 20 118/91 100 08/23/21 11:54 36.9 C 110 H 18 115/82 100 08/23/21 11:50 36.9 C 12 115/82 100 08/23/21 11:00 104 H 11 L 127/94 100 08/23/21 10:00 100 H 13 125/85 100 08/23/21 09:01 101 H 13 133/95 100 08/23/21 08:04 98 H 12 100 08/23/21 08:01 36.2 C 96 H 20 137/87 100 Intake and Output 08/23/21 08/24/21 08/24/21 21:59 05:59 13:59 Intake Total 3899 1703 656 Output Total 2940 2690 400 Balance 959 -987 256 Intake: Nourishment/Supplement quantity 480 (ml) IV 1854 1148 176 Potassium Chloride 20 Meq In 185 1148 176 Sodium Chloride 0.45% 1,000 ml @ 20 mls/hr IV .Q24H [facility] Rx#: [id number] Oral 1240 480 480 Blood Product 325 IV - Manual Only 75 Output: Urine Catheter Amount 2940 2690 400 Other: Meal Dinner Percent of Meal Consumed Bites Feeding Ability Independent Nourishment/Supplement name Nepro Urine Appearance Hematuria Hematuria Small Blood Clots Small Blood Clots Urine Color Dark Red Bright Red Bright Red Reinserted Ruiz Dark Red Weight 61.507 kg Laboratory Tests 08/24/21 05:34 WBC 5.4 Hgb 10.3 L Hct 31.5 L Plt Count 198 08/24/21 05:34 Sodium 148 H Potassium 4.0 Chloride 118 H Carbon Dioxide 19 L BUN 62 H Creatinine 2.3 H GFR Calculation 30 Glucose 93 Calcium 8.8 Phosphorus 2.9 Magnesium 2.3 Albumin 3.3 Serum Creatinine Obstructive uropathy oK TO GO HOME WITH RUIZ IF ABLE TO TAKE PO FLUIDS (LIVES IN [place] WITH SISTER SO POOR CANDIDATE FOR IN&OUT CATH) FOLLOW UP WITH UROLOGY CONTINUE FLOMAX FOLLOW UP WITH PCP CAN FOLLOW UP WITH ME AFTER SEEN BY PCP AND UROLOGY IF NEEDED NO LOSARTAN, NO HCTZ, NO NSAIDS, NO ASA OR OTHER ANTICOAGULANT GIVE 1 LITER OG DW5 IV X 1 TO CORRECT ELEVATED SODIUM Pertinent ROS: NOTHING NEW Additional PMFSH (Level 3 Only): n/a Constitutional Vitals: Vital Signs Temp Pulse Resp BP Pulse Ox 37.2 C 103 H 14 163/95 100 08/24/21 04:00 08/24/21 06:00 08/24/21 06:00 08/24/21 06:00 08/24/21 06:00 Period Temp Pulse Resp BP Sys/Lawson Pulse Ox Last 24 Hr 36.2 C-37.2 C 50-116 11-24 115-178/77-144 77-100 Intake and Output 08/23/21 08/24/21 08/24/21 21:59 05:59 13:59 Intake Total 3899 1703 656 Output Total 2940 2690 400 Balance 959 -987 256 Weight 61.507 kg Intake & Output: Intake & Output 08/23/21 08/24/21 08/24/21 21:59 05:59 13:59 Intake Total 3899 1703 656 Output Total 2940 2690 400 Balance 959 -987 256 Weight 61.507 kg Intake: Nourishment/Supplement quantity 480 (ml) IV 1854 1148 176 Potassium Chloride 20 Meq In 1853 1148 176 Sodium Chloride 0.45% 1,000 ml @ 20 mls/hr IV .Q24H [facility] Rx#: [id number] Oral 1240 480 480 Blood Product 325 IV - Manual Only 75 Output: Urine Catheter Amount 2940 2690 400 Other: Meal Dinner Percent of Meal Consumed Bites Feeding Ability Independent Nourishment/Supplement name Nepro Urine Appearance Hematuria Hematuria Small Blood Clots Small Blood Clots Urine Color Dark Red Bright Red Bright Red Reinserted Ruiz Dark Red General appearance: average body habitus, disheveled and thin Head Head exam: Present normal inspection and normocephalic Eye Eye exam: Present EOMI; Absent scleral icterus Pupils: Present PERRL ENT ENT exam: Present mucous membranes moist Neck Neck exam: Present normal inspection Respiratory Respiratory exam: Present decreased breath sounds Cardiovascular Cardiovascular exam: Present normal rate and rhythm, +S1, +S2 and systolic murmur (2/6 rickey) GI/Abdominal GI/Abdominal exam: Present normal bowel sounds and hypoactive bowel sounds; Absent tenderness Additional comments: RUIZ IN PLACE WITH BLOOD TINGED URINE Neurological Exam Neurological exam: Present CN II-XII intact and oriented X3 Additional comments: Non focal Psychiatric Psychiatric exam: Present normal mood Additional comments: more coherent Skin Skin exam: Present dry A/P Narrative A/P Narrative: A/P Narrative: Obstructive uropathy OK TO GO HOME WITH RUIZ IF ABLE TO TAKE PO FLUIDS (LIVES IN [place] WITH SISTER SO POOR CANDIDATE FOR IN&OUT CATH) FOLLOW UP WITH UROLOGY CONTINUE FLOMAX FOLLOW UP WITH PCP CAN FOLLOW UP WITH ME AFTER SEEN BY PCP AND UROLOGY IF NEEDED NO LOSARTAN, NO HCTZ, NO NSAIDS, NO ASA OR OTHER ANTICOAGULANT GIVE 1 LITER OG DW5 IV X 1 TO CORRECT ELEVATED SODIUM PREVIOUSLY WRITTEN: 1. HTN No HCTZ or LOSARTAN OK for Amlodipine No B-blockers due to HR < 60/min PRN Hydralazine for BP > 180 systolic Will become mildly volume contracted so this will help with a post obstructive urine output 2. T2DM on Metformin w/o retinopathy Hold metformin due to AG (+) acidosis 3. Acute urinary retention Ruiz and flomax Urology consult 4. Acute renal failure due to OBSTRUCTIVE UROPATHY Replace urine output 1/2 cc per cc of urine with 1/2NS with KCl 20 mEq/L and MgSO4 2gm/L 5. Metabolic acidosis with (+) AG and hypokalemia Do NOT replace HCO3 as this will worsen K level 6. Electrolyte abnormalities Monitor K, Mg and PO4 7. Hemorrhagic cystitis Bladder irrigation Time Spent With Patient Time: Total time spent is greater than 50% in coordination of care (as documented) at patient's floor/unit and/or counseling patient:
[2021-08-24] MEDS ORDERED: hydrALAZINE 20 MG/ML VIAL IV PRN (08:18)
[2021-08-24 08:42] LABS: Basophils # (Auto) 0.02 K/mcL (0.00-0.30); Basophils % (Auto) 0.4 % (0.0-2.0); Eosinophils # (Auto) 0.06 K/mcL (0.00-0.70); Eosinophils % (Auto) 1.1 % (0.0-7.0); Hematocrit 31.5 % (40.1-51.0); Hemoglobin 10.3 g/dL (13.7-17.5); Lymphocytes # (Auto) 0.43 K/mcL (1.50-4.80); Lymphocytes % (Auto) 7.9 % (15.5-49.0); Mean Cell Volume 90.8 fL (80.0-100.0); Mean Corpuscular HGB Conc 32.7 g/dL (31.0-36.0); Mean Platelet Volume 11.9 fL (7.4-10.4); Monocytes # (Auto) 0.79 K/mcL (0.10-0.90); Monocytes % (Auto) 14.6 % (1.0-12.0); Platelet Count 198 K/mcL (140-440); RBC 3.47 M/mcL (4.63-6.08); Red Cell Distribution Width 14.1 % (11.5-14.5); WBC 5.4 K/mcL (4.5-11.0)
[2021-08-24] MEDS ORDERED: amLODIPine 5 MG TABLET PO SCH (09:00)
[2021-08-24 09:17] LABS: ALT/SGPT 16 U/L (<40); AST/SGOT 19 U/L (<40); Albumin 3.3 gm/dL (3.2-5.2); Albumin/Globulin Ratio 0.9 (1.0-2.3); Alkaline Phosphatase 96 U/L (39-117); Bilirubin,Direct < 0.2 mg/dL (0-0.3); Bilirubin,Total 0.3 mg/dL (0.1-1.0); Blood Urea Nitrogen 62 mg/dL (6-20); Calcium 8.8 mg/dL (8.6-10.4); Carbon Dioxide 19 mmol/L (22-30); Chloride 118 mmol/L (96-108); Globulin 3.5 gm/dL (2.2-3.7); Glomerular Filtration Rate 30; Glucose 93 mg/dL (70-105); Lactate Dehydrogenase 198 U/L (135-225); Phosphorous 2.9 mg/dL (2.5-4.5); Triglycerides 68 mg/dL (<150); Uric Acid 4.1 mg/dL (2.5-8.0)
[2021-08-24] MEDS: DOCUSATE SODIUM 100 MG CAPSULE PO SCH ×2 (09:36→20:15)
[2021-08-24] MEDS: ATORVASTATIN 40 MG TABLET PO SCH (09:36)
[2021-08-24] MEDS: HYDROXYCHLOROQUINE 200 MG TABLET PO SCH ×2 (09:36→20:15)
[2021-08-24] MEDS ORDERED: PNEUMOCOCCAL 23-VAL P-SAC VAC 0.5 ML SYRINGE IM ONE (10:00)
[2021-08-24] MEDS ORDERED: FLU VACC QS2021-22(6MOS UP)/PF 60 MCG/0.5 ML SYRINGE IM ONE (10:00)
[2021-08-24] MEDS: DEXTROSE 5% IN WATER 1,000 ML IV SCH ×2 (10:20→16:42)
[2021-08-24] MEDS ORDERED: DEXTROSE 5% IN WATER 1,000 ML IV SCH (13:00)
--- NOTE | 2021-08-24 13:40 | Non-GYN Cytology Report ---
Non Senior Instrumentation Engineer Cytology NG Diagnosis URINE, CATHETERIZED: --- DEGENERATED CELLULAR DEBRIS AND ACUTE INFLAMMATION. --- NO ATYPICAL OR MALIGNANT CELLS IDENTIFIED. (DMT) NG Micro Description A ThinPrep monolayer slide is reviewed and contains abundant degenerated cellular and red cells debris with intermixed neutrophils, few lymphocytes and macrophages. A viable epithelial cell population is not seen. No atypical or malignant cells are identified. NG Gross Description Received 45 mL red cloudy fluid. Electronically Signed Abel Kenyon MD, FCAP Electronically Signed 08/24/2021 13:39
[2021-08-24 17:02] LABS: Blood Urea Nitrogen 44 mg/dL (6-20); Carbon Dioxide 19 mmol/L (22-30); Chloride 108 mmol/L (96-108); Glomerular Filtration Rate 44; Glucose 112 mg/dL (70-105)
[2021-08-24] MEDS: 0.45 % SODIUM CHLORIDE 1,000 ML IV SCH (17:58)
[2021-08-24] MEDS ORDERED: POTASSIUM CHLORIDE 40 MEQ in DEXTROSE 5% IN WATER 500 ML IV ONE (18:00)
[2021-08-24] MEDS ORDERED: 0.9 % SODIUM CHLORIDE 250 ML IV PRN (18:44)
--- NOTE | 2021-08-24 19:00 | Urology Progress Note ---
SUBJECTIVE Subjective Patient information: Note initiated : 08/24/21 at 6:56 pm Service Date, if different from initiated Date: [] Patient: Darell Askew 56 y/o M admitted on 08/22/21 for Sent here by PCP/abn labs. Chief Complaint: [] Principal diagnosis: ARF due to acute obstructive uropathy Interval history: The patient reports that he is feeling well. He continues to make a large amount of urine, approximately 700 mL/h. Constitutional Vitals: Vital Signs Temp Pulse Resp BP Pulse Ox 98.7 F 110 H 19 149/90 97 08/24/21 16:02 08/24/21 18:01 08/24/21 18:01 08/24/21 18:01 08/24/21 18:01 Period Temp Pulse Resp BP Sys/Lawson Pulse Ox Last 24 Hr 97.9 F-98.9 F 83-117 12- 99-170/79-110 96-100 Intake and Output 08/24/21 08/24/21 08/24/21 05:59 13:59 21:59 Intake Total 1703 3271 3737 Output Total 2690 3060 2140 Balance -767 160 5810 Intake & Output: Intake & Output 08/24/21 08/24/21 08/24/21 05:59 13:59 21:59 Intake Total 1703 3271 3737 Output Total 2690 3060 2140 Balance -713 805 4389 Intake: Nourishment/Supplement quantity 120 (ml) IV 0763 394 9955 Dextrose 5% in Water 1,000 ml @ 1257 100 mls/hr IV .Q10H [facility] Rx#: [id number] Potassium Chloride 20 Meq In 1148 811 Sodium Chloride 0.45% 1,000 ml @ 20 mls/hr IV .Q24H [facility] Rx#: [id number] Oral 480 2460 2360 IV - Manual Only 75 Output: Urine Catheter Amount 2690 3060 2140 Other: Meal Lunch Percent of Meal Consumed 75% Feeding Ability Independent Nourishment/Supplement name Glucerna Urine Appearance Hematuria Small Blood Clots Small Blood Clots Small Blood Clots Urine Color Bright Red Bright Red Bright Red Reinserted Kat Dark Red Urine Odor Normal General appearance: disheveled, no acute distress and thin Head Head exam: Present atraumatic, normal inspection and normocephalic Eye Eye exam: Present PERRL Neck Neck exam: Present normal inspection Respiratory Respiratory exam: Present normal respiratory exam and CTAB Cardiovascular Cardiovascular exam: Present normal rate and rhythm GI/Abdominal GI/Abdominal exam: Present soft; Absent distended Additional comments: Kat catheter in place draining clear [place] to light red urine with occasional clots Expanded Exam Urine Color: Dark [place] and Dark Red Psychiatric Psychiatric exam: Present flat affect A/P Narrative A/P Narrative: Reinaldo is a 56-year-old male with a recent history of obstructive uropathy with acute renal failure. He has a Kat catheter in place and is draining urine that is lightening daily. Urine today is a dark [place] light red color with the passage of occasional clots. He continues to put out a large amount of urine, approximately 700 mL/h. We will continue to monitor the color of his urine to ensure that currently resolved. When he is ready to go home per the hospitalist service he will go home with a Kat catheter in place. Time Spent With Patient Time: Total time spent is greater than 50% in coordination of care (as documented) at patient's floor/unit and/or counseling patient: Total time spent with greater than 50% in coordination of care (as documented) at patient's floor/unit and/or counseling patient:: less than 15 minutes
[2021-08-24] MEDS: TAMSULOSIN 0.4 MG CAPSULE PO SCH (20:15)
[2021-08-24] MEDS: SENNOSIDES/DOCUSATE SODIUM 1 TAB TABLET PO SCH (20:15)
[2021-08-25] MEDS: 0.9 % SODIUM CHLORIDE 10 ML SYRINGE IV SCH ×3 (05:38→20:18)
[2021-08-25] MEDS: 0.45 % SODIUM CHLORIDE 1,000 ML IV SCH (07:24)
[2021-08-25] MEDS: INSULIN LISPRO 1 UNIT/0.01 ML UNIT SQ SCH ×4 (07:32→20:04)
[2021-08-25] MEDS ORDERED: LABETALOL 5 MG/ML ML IV PRN (07:51)
--- NOTE | 2021-08-25 07:51 | Internal Med Progress Note ---
SUBJECTIVE Subjective Patient information: Note initiated : 08/25/21 at 7:48 am Service Date, if different from initiated Date: [] Patient: Darell Askew a 56 y/o M admitted on 08/22/21 for Sent here by PCP/abn labs. Chief Complaint: [] Principal diagnosis: ARF due to acute obstructive uropathy Interval history: Mr. Askew is a [address] Fontanez's patient with a history of HTN/DM type II/tobacco dependence/HLD who presents to the ER after being directed by PCP office with elevated creatinine of 10.5. Patient has been feeling weak fatigued and complaining of difficulty urination over the last couple of week. He has noted increasing abdominal distention, loss of appetite, fatigue, malaise, weakness and weight loss. He has been experiencing associated nausea/vomiting and has not been able to function over the last couple of weeks. He lives with his sister who has been helping him out during this time. He however denies cough, fever, chills, chest pain, rash, joint pain. He endorses to exertional shortness of breath Initial work-up in the ER was consistent with acute renal failure with a BUN of 195, creatinine 9.5. CT abdomen reveals bilateral hydronephrosis/obstructive uropathy. Rios's catheter was placed and subsequently nephrology was consulted. Patient had 2300 cc output following Rios's placement. Subsequently hospitalist service was consulted for admission. At the time of my evaluation patient is alert but anxious. He was able to answer most the questions. Denies NSAID intake, changes in medications. He denies hematuria, weight loss, shortness of breath but endorses to constipation over the few days. He also endorses to loss of appetite. 08/23-patient overnight on management per nephrology on 4 replacement half cc per 1 cc urine output. Extensive hematuria. Status post 22 Ukrainian Rios's catheter placement with flushing. Hemoglobin down to 8 with a baseline hemoglobin 14. [place] blood transfusion today. Urology on board. Creatinine down to 5.5, BUN 131 down from 193, potassium 3.6. Feeling a lot better and appreciative of care. 08/24 No overnight event or new complaints. Still awaiting follow-up chemistry. Gross hematuria. 08/25 Patient no complaints no chest pain shortness of breath lightheadedness. He did have Ortho static changes in blood pressure. Review of Systems: denies headache/fever/chills/nausea/vomiting/chest or abdominal pain/cough/dysp an/diarrhea. Otherwise see above. Constitutional Vitals: Vital Signs Temp Pulse Resp BP Pulse Ox 97.9 F 96 H 15 170/102 98 08/25/21 04:00 08/25/21 06:19 08/25/21 06:19 08/25/21 06:03 08/25/21 06:19 Period Temp Pulse Resp BP Sys/Lawson Pulse Ox Last 24 Hr 97.9 F-99.6 F 83-117 09-11 99-170/74-110 96-100 Intake and Output 08/24/21 08/25/21 08/25/21 21:59 05:59 13:59 Intake Total 3737 1165 1000 Output Total 3740 2230 400 Balance -3 -1065 600 Weight 62.596 kg Intake & Output: Intake & Output 08/24/21 08/25/21 08/25/21 21:59 05:59 13:59 Intake Total 3737 1165 1000 Output Total 3740 2230 400 Balance -3 -1065 600 Weight 62.596 kg Intake: Nourishment/Supplement quantity 120 (ml) IV 7520 561 0989 Sodium Chloride 0.45% 1,000 ml 1000 @ 75 mls/hr IV .[id number] [facility] Rx# :[id number] Dextrose 5% in Water 1,000 ml @ 1257 100 mls/hr IV .Q10H [facility] Rx#: [id number] Potassium Chloride 40 Meq In 520 Dextrose 5% in Water 500 ml @ 130 mls/hr IV ONCE ONE Rx#: [id number] Oral 2360 645 Output: Urine Catheter Amount 3740 2230 400 Other: Nourishment/Supplement name Glucerna Urine Appearance Clear Clear Clear Large Blood Clots Hematuria Hematuria Small Blood Clots Small Blood Clots Urine Color Bright Red Dark Red Dark Red Exam: General: Alert, Awake, No acute Distress Eyes/N/T: EOMI, Head/Neck: neck supple, CV: RRR, No murmurs, Pulm: Clear b/l, no wheezing/rhonchi/rales Abd: soft, nontender, +BS x4 Ext: no clubbing/cyanosis/edema Neuro: Alert, no focal deficits, moves all extremities, Skin: warm/dry : Gross hematuria OBJ DATA Labs CBC & Chem 7: 08/25/21 05:52 08/25/21 05:53 Labs: Abnormal Lab Results 08/24/21 08/24/21 08/24/21 15:37 05:34 05:34 RBC 3.47 L Hgb 10.3 L Hct 31.5 L MPV 11.9 H Neut % (Auto) Lymph % (Auto) 7.9 L [place] % (Auto) 14.6 H Lymph # (Auto) 0.43 L Sodium 148 H Chloride 118 H Carbon Dioxide 19 L 19 L Anion Gap BUN 44 H 62 H Creatinine 1.7 H 2.3 H POC Creatinine Glucose 112 H Calcium 8.0 L Phosphorus Magnesium Globulin Albumin/Globulin Ratio 0.9 L Urine Occult Blood Urine Mucus 08/23/21 08/23/21 08/22/21 05:21 05:21 20:10 RBC 2.70 L Hgb 8.0 L Hct 24.6 L MPV 12.0 H Neut % (Auto) 79.2 H Lymph % (Auto) 8.2 L [place] % (Auto) Lymph # (Auto) 0.45 L Sodium Chloride 110 H Carbon Dioxide 19 L Anion Gap BUN 131 H* Creatinine 5.4 H* POC Creatinine 9.1 H* Glucose 194 H Calcium Phosphorus 5.9 H* Magnesium 3.1 H Globulin Albumin/Globulin Ratio 0.9 L Urine Occult Blood Urine Mucus 08/22/21 08/22/21 08/22/21 16:08 15:44 15:44 RBC 3.11 L Hgb 9.2 L Hct 28.0 L MPV 12.1 H Neut % (Auto) 85.8 H Lymph % (Auto) 4.4 L [place] % (Auto) Lymph # (Auto) 0.41 L Sodium Chloride 92 L Carbon Dioxide 19 L Anion Gap 24.0 H BUN 193 H* Creatinine 9.5 H* POC Creatinine Glucose 167 H Calcium Phosphorus Magnesium Globulin 4.2 H Albumin/Globulin Ratio Urine Occult Blood >=1.0 A Urine Mucus Few A Meds: Medications Acetaminophen (Acetaminophen 325 Mg Tablet) 650 mg PO Q4-6HP PRN; Protocol PRN Reason: Per Pain Protocol/Fever > 101 Last Admin: 08/23/21 18:40 Dose: 650 mg Documented by: Atorvastatin Calcium (Atorvastatin 40 Mg Tablet) 40 mg PO QDAY [facility] Last Admin: 08/24/21 09:36 Dose: 40 mg Documented by: Bisacodyl (Bisacodyl 10 Mg Supp.Rect) 10 mg NC Q2-3DAYS PRN PRN Reason: Constipation Diagnostic Test (Pha) (Accu-Chek 1 Each Strip) 1 each FS ACHS [facility] Last Admin: 08/25/21 07:32 Dose: 1 each Documented by: Docusate Sodium (Docusate Sodium 100 Mg Capsule) 100 mg PO BID [facility] Last Admin: 08/24/21 20:15 Dose: 100 mg Documented by: Hydroxychloroquine Sulfate (Hydroxychloroquine 200 Mg Tablet) 200 mg PO BID [facility] Last Admin: 08/24/21 20:15 Dose: 200 mg Documented by: Acetaminophen (Ofirmev) 650 mg in 65 mls @ 130 mls/hr IV Q6HP PRN; Protocol PRN Reason: Per Pain Protocol/Fever > 101 Sodium Chloride (Sodium Chloride 0.45%) 1,000 mls @ 75 mls/hr IV .[id number] [facility] Last Admin: 08/25/21 07:24 Dose: 75 mls/hr Documented by: Sodium Chloride (Sodium Chloride 0.9%) 250 mls @ 0 mls/hr IV BOLUS PRN PRN Reason: BP < 90 systolic or HR > 120/m Insulin Human Lispro (Insulin Lispro 1 Unit/0.01 Ml Unit) 0 unit SQ [facility]; Protocol Last Admin: 08/25/21 07:32 Dose: Not Given Documented by: Melatonin (Melatonin 3 Mg Tablet) 3 mg PO HSP PRN PRN Reason: Insomnia Last Admin: 08/23/21 21:09 Dose: 3 mg Documented by: Ondansetron HCl (Ondansetron 4 Mg Odt Tablet) 4 mg SL Q4-6HP PRN; Protocol PRN Reason: Nausea And Vomiting Ondansetron HCl (Ondansetron 4 Mg/2 Ml Vial) 4 mg IV Q4-6HP PRN; Protocol PRN Reason: Nausea And Vomiting Polyethylene Glycol (Polyethylene Glycol 3350 17 Gm Packet) 17 gm PO DAILYP PRN PRN Reason: Constipation Last Admin: 08/23/21 09:05 Dose: 17 gm Documented by: Senna/Docusate Sodium (Sennosides/Docusate Sodium 1 Tab Tablet) 1 tab PO [facility] Last Admin: 08/24/21 20:15 Dose: 1 tab Documented by: Sodium Chloride (0.9 % Sodium Chloride 10 Ml Syringe) 10 ml IV Q8 [facility] Last Admin: 08/25/21 05:38 Dose: 10 ml Documented by: Tamsulosin HCl (Tamsulosin 0.4 Mg Capsule) 0.4 mg PO [facility] Last Admin: 08/24/21 20:15 Dose: 0.4 mg Documented by: A/P Narrative A/P Narrative: A: *H[place]IGH: 2/2 postobstructive uropathy: -improving *UR/Obstructive uropathy w/postobstructive diuresis: -rios in place *Hematuria 2/2 hemorrhagic cystitis: managed per urology *Acute blood loss anemia: 2/2 above -2prbc (08/23) *HTN: *DM type: *HLD continue statin *Tobacco dependence: continue nicotine patch Plan: -Urology/nephrology following -IVF's per urology/nephrology -prn Bladder irrigation per urology, maintain rios and f/u outpt with urology -prn PRBC transfusion -cont amlodipine. Hold MURIEL inhibitor/thiazide -flomax -SSI -smoking cessation counseling -ppx: SCD Time Spent With Patient Time: Total time spent is greater than 50% in coordination of care (as documented) at patient's floor/unit and/or counseling patient: QUALITY Stroke Symptom Onset Unknown: No VTE Deep Vein Thrombosis/Pulmonary Embolism Present on Admission: No
[2021-08-25 07:53] LABS: Hematocrit 31.4 % (40.1-51.0); Hemoglobin 10.3 g/dL (13.7-17.5)
[2021-08-25 08:37] LABS: ALT/SGPT 27 U/L (<40); AST/SGOT 30 U/L (<40); Albumin 3.2 gm/dL (3.2-5.2); Albumin/Globulin Ratio 0.9 (1.0-2.3); Alkaline Phosphatase 110 U/L (39-117); Bilirubin,Direct < 0.2 mg/dL (0-0.3); Bilirubin,Total 0.4 mg/dL (0.1-1.0); Blood Urea Nitrogen 25 mg/dL (6-20); Calcium 8.2 mg/dL (8.6-10.4); Carbon Dioxide 21 mmol/L (22-30); Chloride 106 mmol/L (96-108); Globulin 3.5 gm/dL (2.2-3.7); Glomerular Filtration Rate 51; Glucose 93 mg/dL (70-105); Lactate Dehydrogenase 193 U/L (135-225); Phosphorous 1.7 mg/dL (2.5-4.5); Triglycerides 87 mg/dL (<150); Uric Acid 2.5 mg/dL (2.5-8.0)
--- NOTE | 2021-08-25 08:37 | Nephrology Progress Note ---
SUBJECTIVE Subjective Patient information: Note initiated : 08/25/21 at 8:34 am Patient: Darell Askew 56 y/o M admitted on 08/22/21 for Sent here by PCP/abn labs. Chief Complaint: Weakness Principal diagnosis: ARF due to acute obstructive uropathy Pertinent ROS: Weakness Dizziness on standing up No edema Kat catheter with red urine Constitutional Vitals: Vital Signs Temp Pulse Resp BP Pulse Ox 97.9 F 109 H 15 170/102 98 08/25/21 04:00 08/25/21 08:11 08/25/21 06:19 08/25/21 08:11 08/25/21 06:19 Period Temp Pulse Resp BP Sys/Lawson Pulse Ox Last 24 Hr 97.9 F-99.6 F 85-120 12-27 92-170/59-110 96-100 Intake and Output 08/24/21 08/25/21 08/25/21 21:59 05:59 13:59 Intake Total 3737 1165 1071 Output Total 3740 2230 400 Balance -3 -1065 671 Weight 138 lb Intake & Output: Intake & Output 08/24/21 08/25/21 08/25/21 21:59 05:59 13:59 Intake Total 3737 1165 1071 Output Total 3740 2230 400 Balance -3 -1065 671 Weight 138 lb Intake: Nourishment/Supplement quantity 120 (ml) IV 8981 479 1676 Sodium Chloride 0.45% 1,000 ml 1071 @ 75 mls/hr IV .[id number] [facility] Rx# :[id number] Dextrose 5% in Water 1,000 ml @ 1257 100 mls/hr IV .Q10H [facility] Rx#: [id number] Potassium Chloride 40 Meq In 520 Dextrose 5% in Water 500 ml @ 130 mls/hr IV ONCE ONE Rx#: [id number] Oral 2360 645 Output: Urine Catheter Amount 3740 2230 400 Other: Nourishment/Supplement name Glucerna Urine Appearance Clear Clear Clear Large Blood Clots Hematuria Hematuria Small Blood Clots Small Blood Clots Urine Color Bright Red Dark Red Dark Red General appearance: cooperative and no acute distress Head Head exam: Present normal inspection Eye Eye exam: Present normal appearance ENT ENT exam: Present mucous membranes dry Respiratory Respiratory exam: Absent respiratory distress Cardiovascular Cardiovascular exam: Present normal rate and rhythm GI/Abdominal GI/Abdominal exam: Present soft; Absent tenderness Extremities Exam Extremities exam: Absent joint swelling or pedal edema Neurological Exam Neurological exam: Present alert and oriented X3 Psychiatric Psychiatric exam: Present normal affect and normal mood Skin Skin exam: Present warm; Absent rash A/P Assessment and plan (1) HALEIGH (acute kidney injury): Assessment and plan: Darell Askew is a 56-year-old male with diabetes mellitus type 2, hypertension, chronic obstructive pulmonary disease, history suspected of mild inflammatory arthropathy involving peripheral joints with differentials being RA or psoriatic arthropathy on hydroxychloroquine sent to [facility] ED for acute kidney injury. His workup was significant for obstructive nephropathy. He is admitted on 08/23/21. Acute kidney injury due to obstructive nephropathy associated with initial metabolic acidosis, present on arrival, resolving. Dehydration and orthostasis with post obstructive diuresis. Previous workup: Labs on 08/21/21: Serum sodium 136, potassium 4.5, CO2 19, creatinine 10.9, eGFR 195, calcium 10.1, albumin 4.4, Vitamin D Total (25-Hydroxy) 25.63, WBC 9.3, hemoglobin 9.9, PLT 264, ESR 122, CRP 9.4, TSH 5.87, urinalysis yellow, clear, pH 6.0, SG 1.009, protein negative, blood >1.0, leukocyte esterase negative. CXR on 08/21/21: Negative PA and lateral chest x-ray. No significant interval change. ED visit on 08/12/21 for pharyngitis. Augmentin 875-125 mg twice daily was prescribed. Labs on 01/11/21: Serum sodium 138, potassium 4.3, CO2 23, creatinine 0.8, eGFR 100, calcium 9.6, random urine microalbumin/creatinine ratio 24.2 mg/g creatinine. Renal US on 09/14/16: Normal kidneys. Work up: Urinalysis on 08/22/21: Yellow, Clear, pH 5.0, SG 1.008, protein negative, blood >1.0, leukocyte esterase negative. CT Abdomen and Pelvis without contrast on 08/22/21: Distended urinary bladder. Bladder outlet obstruction is possible although the prostate is not significantly enlarged. Moderate bilateral hydronephrosis. Cholelithiasis. Multilevel degenerative disc disease. Atherosclerotic calcification. No abdominal aortic aneurysm. Progress: Serum creatinine increased from 1.7 to 1.5 in the past 24 hours. Baseline serum creatinine: 0.8. Urine output: 9,030 ml reported in the past 24 hours. Metabolic acidosis, mild. Fluid status: I/O: - 3L since admission. Weight: -4 kg since admission. No uremic symptoms. Recommendations/Plan: Unrestricted oral fluid intake without IV fluids. IV fluids if oral intake is not adequate. Status: Acute (2) Obstructive uropathy: Status: Acute Time Spent With Patient Time: Total time spent is greater than 50% in coordination of care (as documented) at patient's floor/unit and/or counseling patient:
--- NOTE | 2021-08-25 09:06 | Urology Progress Note ---
SUBJECTIVE Subjective Patient information: Note initiated : 08/25/21 at 9:00 am Service Date, if different from initiated Date: [] Patient: Darell Askew 56 y/o M admitted on 08/22/21 for Sent here by PCP/abn labs. Chief Complaint: [] Principal diagnosis: ARF due to acute obstructive uropathy Interval history: Darell is resting comfortably in bed this morning. By report he continues to be hypotensive when upright. He continues to put out a large amount of urine. On arrival today the urine is an [place]-red color with the passage of several small clots. Constitutional Vitals: Vital Signs Temp Pulse Resp BP Pulse Ox 97.9 F 109 H 15 170/102 98 08/25/21 04:00 08/25/21 08:11 08/25/21 06:19 08/25/21 08:11 08/25/21 06:19 Period Temp Pulse Resp BP Sys/Lawson Pulse Ox Last 24 Hr 97.9 F-99.6 F 85-120 12-27 92-170/59-110 96-100 Intake and Output 08/24/21 08/25/21 08/25/21 21:59 05:59 13:59 Intake Total 3737 1165 1071 Output Total 3740 2230 400 Balance -3 -1065 671 Weight 62.596 kg Intake & Output: Intake & Output 08/24/21 08/25/21 08/25/21 21:59 05:59 13:59 Intake Total 3737 1165 1071 Output Total 3740 2230 400 Balance -3 -1065 671 Weight 62.596 kg Intake: Nourishment/Supplement quantity 120 (ml) IV 5809 249 1179 Sodium Chloride 0.45% 1,000 ml 1071 @ 75 mls/hr IV .[id number] [facility] Rx# :[id number] Dextrose 5% in Water 1,000 ml @ 1257 100 mls/hr IV .Q10H [facility] Rx#: [id number] Potassium Chloride 40 Meq In 520 Dextrose 5% in Water 500 ml @ 130 mls/hr IV ONCE ONE Rx#: [id number] Oral 2363 645 Output: Urine Catheter Amount 3740 2230 400 Other: Nourishment/Supplement name Glucerna Urine Appearance Clear Clear Clear Large Blood Clots Hematuria Hematuria Small Blood Clots Small Blood Clots Urine Color Bright Red Dark Red Dark Red General appearance: cooperative, disheveled, no acute distress and thin Head Head exam: Present atraumatic, normal inspection and normocephalic ENT ENT exam: Present mucous membranes dry Neck Neck exam: Present normal inspection Respiratory Respiratory exam: Present normal respiratory exam and CTAB Cardiovascular Cardiovascular exam: Present normal rate and rhythm GI/Abdominal GI/Abdominal exam: Present soft; Absent distended Expanded Exam Urine Appearance: Clear Urine Color: Dark [place] and Blood Tinged Psychiatric Psychiatric exam: Present flat affect A/P Assessment and plan (1) Gross hematuria: Status: Acute (2) Obstructive uropathy: Status: Acute (3) [place]IGH (acute kidney injury): Status: Acute Narrative A/P Narrative: Darell is a 56-year-old male with acute renal failure secondary to urinary retention of unknown etiology. On arrival to the emergency department 16 [place]ron[place] Kat catheter was placed which quickly became obstructed due to hemorrhagic cystitis. This was exchanged to a 22 [place] catheter which has been draining well since that time. He continues to make a large amount of urine. Urine has been clearing on a daily basis. On examination today the urine is much copy center operator than it was yesterday that appears to be changed from dissolving blood clot rather than active bleeding. At the bedside today I hand irrigated his catheter with approximately 2 L of sterile saline. I removed approximately 100 mL of oral soft clot. I irrigated until the urine was clear. The catheter was then replaced to gravity drainage. At this point in time Darell may go home with a Kat catheter in place once he is stable per nephrology and hospitalist service. There is no urologic intervention formed at this time. Hematuria if it continues we will clear on its own. I will see him in my office approximately 1 week after discharge to discuss further work-up including an in office cystoscopy. If there are any further questions please do not hesitate to contact me. Time Spent With Patient Time: Total time spent is greater than 50% in coordination of care (as documented) at patient's floor/unit and/or counseling patient: Total time spent with greater than 50% in coordination of care (as documented) at patient's floor/unit and/or counseling patient:: 15 - 24 minutes
[2021-08-25] MEDS ORDERED: 0.9 % SODIUM CHLORIDE 500 ML IV ONE (09:53)
[2021-08-25] MEDS: HYDROXYCHLOROQUINE 200 MG TABLET PO SCH ×2 (10:07→20:04)
[2021-08-25] MEDS: ATORVASTATIN 40 MG TABLET PO SCH (10:07)
[2021-08-25] MEDS: DOCUSATE SODIUM 100 MG CAPSULE PO SCH ×2 (10:07→20:04)
--- NOTE | 2021-08-25 10:20 | Discharge Summary ---
Discharge Provider Provider Patient information: Note initiated : 08/25/21 at 10:17 am Service Date, if different from initiated Date: [] Patient: Darell Askew 56 y/o M admitted on 08/22/21 for Sent here by PCP/abn labs. Chief Complaint: [] Date of admission: 08/22/21 22:20 Discharge date: 08/28/21 Primary care physician: Celeste Fontanez DO Consults: 08/22/21 Consult to Physician [CONS] Stat Comment: Consulting Provider: Jefry Humphreys Reason For Exam: Physician to Consult Consult to Physician [CONS] Stat Comment: Consulting Provider: Phu Calvo Reason For Exam: Physician to Consult Consult to Physician [CONS] Stat Comment: Consulting Provider: Aashish Albarran Reason For Exam: Physician to Consult Discharge Meds Discharge Medications Home Medications nicotine 14 mg/24 hr daily transdermal patch 1 patch TRANSDERMA Q24H #28 each 10/11/20 [Rx Confirmed 08/23/21 Last Taken Unknown] losartan 100 mg tablet 100 mg PO QDAY #90 tab 10/27/20 [Rx Confirmed 08/23/21 Last Taken Unknown] amlodipine 5 mg tablet (Norvasc) 5 mg PO QDAY #90 tab 01/11/21 [Rx Confirmed 08/23/21 Last Taken Unknown] atorvastatin 40 mg tablet 40 mg PO QDAY #90 tab 01/11/21 [Rx Confirmed 08/23/21 Last Taken Unknown] hydrochlorothiazide 25 mg tablet 25 mg PO QDAY #90 tab 01/11/21 [Rx Confirmed 08/23/21 Last Taken Unknown] metformin 750 mg tablet,extended release 24 hr 750 mg PO BID #60 tab 01/11/21 [Rx Confirmed 08/23/21 Last Taken Unknown] hydroxychloroquine 200 mg tablet 200 mg PO BID #180 tab 02/28/21 [Rx Confirmed 08/23/21 Last Taken Unknown] tamsulosin 0.4 mg capsule 0.4 mg PO HS #30 cap 08/26/21 [Rx Last Taken Unknown] COURSE Hospital Course Hospital course: Interval history: Mr. Askew is a [address] Fontanez's patient with a history of HTN/DM type II/tobacco dependence/HLD who presents to the ER after being directed by PCP office with elevated creatinine of 10.5. Patient has been feeling weak fatigued and complaining of difficulty urination over the last couple of week. He has noted increasing abdominal distention, loss of appetite, fatigue, malaise, weakness and weight loss. He has been experiencing associated nausea/vomiting and has not been able to function over the last couple of weeks. He lives with his sister who has been helping him out during this time. He however denies cough, fever, chills, chest pain, rash, joint pain. He endorses to exertional shortness of breath Initial work-up in the ER was consistent with acute renal failure with a BUN of 195, creatinine 9.5. CT abdomen reveals bilateral hydronephrosis/obstructive uropathy. Kat's catheter was placed and subsequently nephrology was consulted. Patient had 2300 cc output following Kat's placement. Subsequ ently hospitalist service was consulted for admission. At the time of my evaluation patient is alert but anxious. He was able to answer most the questions. Denies NSAID intake, changes in medications. He denies hematuria, weight loss, shortness of breath but endorses to constipation over the few days. He also endorses to loss of appetite. 08/23-patient overnight on management per nephrology on 4 replacement half cc per 1 cc urine output. Extensive hematuria. Status post 22 [place] Kat's catheter placement with flushing. Hemoglobin down to 8 with a baseline hemoglobin 14. [place] blood transfusion today. Urology on board. Creatinine down to 5.5, BUN 131 down from 193, potassium 3.6. Feeling a lot better and appreciative of care. 08/24 No overnight event or new complaints. Still awaiting follow-up chemistry. Gross hematuria. 08/25 Patient no complaints no chest pain shortness of breath lightheadedness. He did have Ortho static changes in blood pressure. 08/26 Doing well. Still putting a lot of the urine. Give some IV fluids today to keep up with balance and as soon as his urine output slows down and orthostatic vital signs are unremarkable will look at discharge. 08/27 Patient seems to be doing well no new complaints. However still putting out significant amount of urine, and his orthostatic vital signs are still positive. Did get IV fluid yesterday. BUN and creatinine much improved. Hypokalemia resolved. Phos a little low. A: *[place]: 2/2 postobstructive uropathy: *UR/Obstructive uropathy w/postobstructive diuresis (nephrogenic DI?) *Hematuria 2/2 hemorrhagic cystitis: managed per urology *Acute blood loss anemia: 2/2 above *HTN: *DM type: *HLD continue statin *Tobacco dependence: continue nicotine patch Discharge diagnosis: Urinary retention with obstructive uropathy and postobstructive diuresis Secondary discharge diagnosis: Hemorrhagic cystitis acute kidney injury acute blood loss anemia pretension diabetes hyperlipidemia tobacco abuse Time Spent with Patient Time attestation: Total time spent providing and/or coordinating discharge services: Time spent: Greater than 30 minutes EXAM Constitutional Vitals: Temp Pulse Resp BP Pulse Ox 97.9 F 109 H 15 170/102 98 08/25/21 04:00 08/25/21 08:11 08/25/21 06:19 08/25/21 08:11 08/25/21 06:19 Discharge Data Data Completed and Pending Labs on day of discharge: Labs from last 24 hours 08/25/21 08/25/21 08/24/21 05:53 05:52 15:37 Hgb 10.3 L Hct 31.4 L Sodium 139 140 Potassium 3.4 3.3 Chloride 106 108 Carbon Dioxide 21 L 19 L Anion Gap 12.0 13.0 BUN 25 H 44 H Creatinine 1.5 H 1.7 H GFR Calculation 51 44 Glucose 93 112 H Uric Acid 2.5 Calcium 8.2 L 8.0 L Phosphorus 1.7 L Magnesium 1.6 Total Bilirubin 0.4 Direct Bilirubin < 0.2 GGT 44 AST 30 ALT 27 Alkaline Phosphatase 110 Lactate Dehydrogenase 193 Total Protein 6.7 Albumin 3.2 Globulin 3.5 Albumin/Globulin Ratio 0.9 L Triglycerides 87 Discharge Plan Patient/Caregiver Discharge Instructions Activity: increase activity as tolerated Diet: Consistent Carbohydrate Prescriptions: New tamsulosin 0.4 mg Capsule 0.4 mg PO HS Qty: 30 0RF Continued losartan 100 mg tablet 100 mg PO QDAY Qty: 90 1RF hydroxychloroquine 200 mg tablet 200 mg PO BID Qty: 180 0RF metformin 750 mg tablet extended release 24 hr 750 mg PO BID Qty: 60 3RF Rx Instructions: administer with a meal amlodipine [Norvasc] 5 mg tablet 5 mg PO QDAY Qty: 90 1RF atorvastatin 40 mg tablet 40 mg PO QDAY Qty: 90 1RF hydrochlorothiazide 25 mg tablet 25 mg PO QDAY Qty: 90 1RF nicotine 14 mg/24 hr patch 24 hour 1 patch TRANSDERMA Q24H Qty: 28 6RF Label Comments: stopped patches and started smoking cigarettes again recently, per sister Chelsey Follow Up Plan Follow up with: Aashish Albarran MD [Physician] - Phu Calvo MD [Physician] - (Call to schedule an appointment in 1 week after discharge) Celeste Fontanez DO [Primary Care Provider] - Patient Disposition: Home, Self-Care Rehab Potential: Fair Overall status at discharge: patient is progressing back to baseline QUALITY VTE Deep Vein Thrombosis/Pulmonary Embolism Present on Admission: No
[2021-08-25] MEDS: amLODIPine 5 MG TABLET PO SCH (12:06)
[2021-08-25] MEDS ORDERED: MAGNESIUM SULFATE 2 GM/50 ML BAG IV ONE ×2 (18:33→18:44)
[2021-08-25] MEDS ORDERED: NEUTRA PHOS 1 PACKET PO ONE (18:35)
[2021-08-25] MEDS: TAMSULOSIN 0.4 MG CAPSULE PO SCH (20:04)
[2021-08-25] MEDS: SENNOSIDES/DOCUSATE SODIUM 1 TAB TABLET PO SCH (20:04)
[2021-08-26] MEDS: 0.9 % SODIUM CHLORIDE 10 ML SYRINGE IV SCH ×3 (05:30→21:46)
[2021-08-26 06:58] LABS: Hematocrit 28.8 % (40.1-51.0); Hemoglobin 9.3 g/dL (13.7-17.5)
[2021-08-26 07:53] LABS: ALT/SGPT 28 U/L (<40); AST/SGOT 27 U/L (<40); Albumin 3.2 gm/dL (3.2-5.2); Albumin/Globulin Ratio 0.9 (1.0-2.3); Alkaline Phosphatase 112 U/L (39-117); Bilirubin,Direct < 0.2 mg/dL (0-0.3); Bilirubin,Total 0.3 mg/dL (0.1-1.0); Blood Urea Nitrogen 17 mg/dL (6-20); Calcium 7.8 mg/dL (8.6-10.4); Carbon Dioxide 23 mmol/L (22-30); Chloride 102 mmol/L (96-108); Globulin 3.4 gm/dL (2.2-3.7); Glomerular Filtration Rate 61; Glucose 92 mg/dL (70-105); Lactate Dehydrogenase 170 U/L (135-225); Triglycerides 85 mg/dL (<150); Uric Acid 2.3 mg/dL (2.5-8.0)
[2021-08-26] MEDS: ATORVASTATIN 40 MG TABLET PO SCH (08:03)
[2021-08-26] MEDS: POLYETHYLENE GLYCOL 3350 17 GM PACKET PO PRN (08:03)
[2021-08-26] MEDS: amLODIPine 5 MG TABLET PO SCH (08:03)
[2021-08-26] MEDS: DOCUSATE SODIUM 100 MG CAPSULE PO SCH ×2 (08:03→21:45)
[2021-08-26] MEDS: INSULIN LISPRO 1 UNIT/0.01 ML UNIT SQ SCH ×4 (08:04→21:49)
[2021-08-26] MEDS: HYDROXYCHLOROQUINE 200 MG TABLET PO SCH ×2 (08:04→21:45)
--- NOTE | 2021-08-26 08:04 | Nephrology Progress Note ---
SUBJECTIVE Subjective Patient information: Note initiated : 08/26/21 at 8:01 am Patient: Darell Askew 56 y/o M admitted on 08/22/21 for Sent here by PCP/abn labs. Chief Complaint: Weakness Principal diagnosis: ARF due to acute obstructive uropathy Pertinent ROS: Weakness Thirsty Dizziness Kat catheter with bloody urine Constitutional Vitals: Vital Signs Temp Pulse Resp BP Pulse Ox 98.7 F 103 H 10 L 114/74 100 08/26/21 04:01 08/26/21 00:13 08/26/21 04:22 08/26/21 04:01 08/26/21 04:01 Period Temp Pulse Resp BP Sys/[place] Pulse Ox Last 24 Hr 98 F-99.1 F 94-126 10-32 81-177/49-102 96-100 Intake and Output 08/25/21 08/26/21 08/26/21 21:59 05:59 13:59 Intake Total 1580 1890 1040 Output Total 3275 3000 Balance -1695 -1110 1040 Weight 138 lb 11.2 oz Intake & Output: Intake & Output 08/25/21 08/26/21 08/26/21 21:59 05:59 13:59 Intake Total 1580 1890 1040 Output Total 3275 3000 Balance -1695 -1110 1040 Weight 138 lb 11.2 oz Intake: Nourishment/Supplement quantity 240 (ml) IV 550 Sodium Chloride 0.9% 500 ml @ 500 100 mls/hr IV BOLUS ONE Rx#: [id number] Oral 1030 1650 1040 Output: Urine Catheter Amount 3275 3000 Other: Meal snack Percent of Meal Consumed 100% Nourishment/Supplement name crackers with peanut butter Urine Appearance Clear Clear Hematuria Hematuria Small Blood Clots Small Blood Clots Urine Color Dark Red Dark Yellow General appearance: cooperative and no acute distress Head Head exam: Present normal inspection Eye Eye exam: Present normal appearance ENT ENT exam: Present mucous membranes dry Respiratory Respiratory exam: Absent respiratory distress Cardiovascular Cardiovascular exam: Present normal rate and rhythm GI/Abdominal GI/Abdominal exam: Present soft; Absent tenderness Extremities Exam Extremities exam: Absent joint swelling or pedal edema Neurological Exam Neurological exam: Present alert and oriented X3 Psychiatric Psychiatric exam: Present normal affect and normal mood Skin Skin exam: Present warm; Absent rash A/P Assessment and plan (1) [place] (acute kidney injury): Assessment and plan: Darell Askew is a 56-year-old male with diabetes mellitus type 2, hypertension, chronic obstructive pulmonary disease, history suspected of mild inflammatory arthropathy involving peripheral joints with differentials being RA or psoriatic arthropathy on hydroxychloroquine sent to [facility] ED for acute kidney injury. His workup was significant for obstructive nephropathy. He is admitted on 08/23/21. Acute kidney injury due to obstructive nephropathy associated with initial metabolic acidosis, present on arrival, resolving. Dehydration and orthostasis with post obstructive diuresis. Hypokalemia. Previous workup: Labs on 08/21/21: Serum sodium 136, potassium 4.5, CO2 19, creatinine 10.9, eGFR 195, calcium 10.1, albumin 4.4, Vitamin D Total (25-Hydroxy) 25.63, WBC 9.3, hemoglobin 9.9, PLT 264, ESR 122, CRP 9.4, TSH 5.87, urinalysis yellow, clear, pH 6.0, SG 1.009, protein negative, blood >1.0, leukocyte esterase negative. CXR on 08/21/21: Negative PA and lateral chest x-ray. No significant interval change. ED visit on 08/12/21 for pharyngitis. Augmentin 875-125 mg twice daily was prescribed. Labs on 01/11/21: Serum sodium 138, potassium 4.3, CO2 23, creatinine 0.8, eGFR 100, calcium 9.6, random urine microalbumin/creatinine ratio 24.2 mg/g creatinine. Renal US on 09/14/16: Normal kidneys. Work up: Urinalysis on 08/22/21: Yellow, Clear, pH 5.0, SG 1.008, protein negative, blood >1.0, leukocyte esterase negative. CT Abdomen and Pelvis without contrast on 08/22/21: Distended urinary bladder. Bladder outlet obstruction is possible although the prostate is not significantly enlarged. Moderate bilateral hydronephrosis. Cholelithiasis. Multilevel degenerative disc disease. Atherosclerotic calcification. No abdominal aortic aneurysm. Progress: Serum creatinine decreased from 1.5 to 1.3 in the past 24 hours. Baseline serum creatinine: 0.8. Urine output: 7,745 ml reported in the past 24 hours. Metabolic acidosis, resolved. Hypokalemia associated with post obstructive diuresis. Fluid status: I/O: - 2.9 L since admission. Weight: -4 kg since admission. No uremic symptoms. Recommendations/Plan: Potassium replacement: 40 mEq IV x 1 and 20 mEq PO TID x 3 doses. IV fluids if oral intake is not adequate to keep up with diuresis. Status: Acute (2) Obstructive uropathy: Status: Acute Time Spent With Patient Time: Total time spent is greater than 50% in coordination of care (as documented) at patient's floor/unit and/or counseling patient:
[2021-08-26] MEDS ORDERED: POTASSIUM CHLORIDE 40 MEQ in DEXTROSE 5% IN WATER 500 ML IV ONE (08:07)
--- NOTE | 2021-08-26 08:33 | Internal Med Progress Note ---
SUBJECTIVE Subjective Patient information: Note initiated : 08/26/21 at 8:29 am Service Date, if different from initiated Date: [] Patient: Darell Askew 56 y/o M admitted on 08/22/21 for Sent here by PCP/abn labs. Chief Complaint: [] Principal diagnosis: ARF due to acute obstructive uropathy Interval history: Principal diagnosis: ARF due to acute obstructive uropathy Interval history: Mr. Askew is a [address] Fontanez's patient with a history of HTN/DM type II/tobacco dependence/HLD who presents to the ER after being directed by PCP office with elevated creatinine of 10.5. Patient has been feeling weak fatigued and complaining of difficulty urination over the last couple of week. He has noted increasing abdominal distention, loss of appetite, fatigue, malaise, weakness and weight loss. He has been experiencing associated nausea/vomiting and has not been able to function over the last couple of weeks. He lives with his sister who has been helping him out during this time. He however denies cough, fever, chills, chest pain, rash, joint pain. He endorses to exertional shortness of breath Initial work-up in the ER was consistent with acute renal failure with a BUN of 195, creatinine 9.5. CT abdomen reveals bilateral hydronephrosis/obstructive uropathy. Rios's catheter was placed and subsequently nephrology was consulted. Patient had 2300 cc output following Rios's placement. Sub [facility] hospitalist service was consulted for admission. At the time of my evaluation patient is alert but anxious. He was able to answer most the questions. Denies NSAID intake, changes in medications. He denies hematuria, weight loss, shortness of breath but endorses to constipation over the few days. He also endorses to loss of appetite. 08/23-patient overnight on management per nephrology on 4 replacement half cc per 1 cc urine output. Extensive hematuria. Status post 22 [place] Rios's catheter placement with flushing. Hemoglobin down to 8 with a baseline hemoglobin 14. [place] blood transfusion today. Urology on board. Creatinine down to 5.5, BUN 131 down from 193, potassium 3.6. Feeling a lot better and appreciative of care. 08/24 No overnight event or new complaints. Still awaiting follow-up chemistry. Gross hematuria. 08/25 Patient no complaints no chest pain shortness of breath lightheadedness. He did have Ortho static changes in blood pressure. Still significant postobstructive diuresis causing orthostatic hypotension. Will give 500 cc of likely NS today 08/26 Doing well. Still putting a lot of the urine. Give some IV fluids today to keep up with balance and as soon as his urine output slows down and orthostatic vital signs are unremarkable will look at discharge. Review of Systems: denies headache/fever/chills/nausea/vomiting/chest or abdominal pain/c ough/dyspnea/diarrhea. Otherwise see above. Constitutional Vitals: Vital Signs Temp Pulse Resp BP Pulse Ox 97.4 F 103 H 13 165/100 92 08/26/21 08:01 08/26/21 00:13 08/26/21 08:01 08/26/21 08:01 08/26/21 08:01 Period Temp Pulse Resp BP Sys/[place] Pulse Ox Last 24 Hr 97.4 F-99.1 F 94-126 10-32 81-177/49-100 92-100 Intake and Output 08/25/21 08/26/21 08/26/21 21:59 05:59 13:59 Intake Total 1580 1890 1040 Output Total 3275 3000 1350 Balance -1695 -1110 -310 Weight 62.913 kg Intake & Output: Intake & Output 08/25/21 08/26/21 08/26/21 21:59 05:59 13:59 Intake Total 1580 1890 1040 Output Total 3275 3000 1350 Balance -1695 -1110 -310 Weight 62.913 kg Intake: Nourishment/Supplement quantity 240 (ml) IV 550 Sodium Chloride 0.9% 500 ml @ 500 100 mls/hr IV BOLUS ONE Rx#: [id number] Oral 1030 1650 1040 Output: Urine Catheter Amount 3275 3000 1350 Other: Meal snack Percent of Meal Consumed 100% Nourishment/Supplement name crackers with peanut butter Urine Appearance Clear Clear Clear Hematuria Hematuria Hematuria Small Blood Clots Small Blood Clots Small Blood Clots Urine Color Dark Red Dark Yellow Pale [place] Exam: General: Alert, Awake, No acute Distress Eyes/N/T: EOMI, Head/Neck: neck supple, CV: RRR, No murmurs, Pulm: Clear b/l, no wheezing/rhonchi/rales Abd: soft, nontender, +BS x4 Ext: no clubbing/cyanosis/edema Neuro: Alert, no focal deficits, moves all extremities, Skin: warm/dry : Gross hematuria OBJ DATA Labs CBC & Chem 7: 08/26/21 04:58 08/26/21 04:58 Labs: Abnormal Lab Results 08/26/21 08/26/21 08/25/21 04:58 04:58 05:53 RBC Hgb 9.3 L Hct 28.8 L MPV Lymph % (Auto) [place] % (Auto) Lymph # (Auto) Sodium Potassium 2.8 L* Chloride Carbon Dioxide 21 L BUN 25 H Creatinine 1.3 H 1.5 H Glucose Uric Acid 2.3 L Calcium 7.8 L 8.2 L Phosphorus 2.0 L 1.7 L Magnesium Albumin/Globulin Ratio 0.9 L 0.9 L 08/25/21 08/24/21 08/24/21 05:52 15:37 05:34 RBC Hgb 10.3 L Hct 31.4 L MPV Lymph % (Auto) [place] % (Auto) Lymph # (Auto) Sodium 148 H Potassium Chloride 118 H Carbon Dioxide 19 L 19 L BUN 44 H 62 H Creatinine 1.7 H 2.3 H Glucose 112 H Uric Acid Calcium 8.0 L Phosphorus Magnesium Albumin/Globulin Ratio 0.9 L 08/24/21 08/23/21 05:34 05:21 RBC 3.47 L Hgb 10.3 L Hct 31.5 L MPV 11.9 H Lymph % (Auto) 7.9 L [place] % (Auto) 14.6 H Lymph # (Auto) 0.43 L Sodium Potassium Chloride 110 H Carbon Dioxide 19 L BUN 131 H* Creatinine 5.4 H* Glucose 194 H Uric Acid Calcium Phosphorus 5.9 H* Magnesium 3.1 H Albumin/Globulin Ratio 0.9 L Meds: Medications Acetaminophen (Acetaminophen 325 Mg Tablet) 650 mg PO Q4-6HP PRN; Protocol PRN Reason: Per Pain Protocol/Fever > 101 Last Admin: 08/23/21 18:40 Dose: 650 mg Documented by: Amlodipine Besylate (Amlodipine 5 Mg Tablet) 5 mg PO DAILY KAYLA Last Admin: 08/26/21 08:03 Dose: 5 mg Documented by: Atorvastatin Calcium (Atorvastatin 40 Mg Tablet) 40 mg PO QDAY [facility] Last Admin: 08/26/21 08:03 Dose: 40 mg Documented by: Bisacodyl (Bisacodyl 10 Mg Supp.Rect) 10 mg MD Q2-3DAYS PRN PRN Reason: Constipation Diagnostic Test (Pha) (Accu-Chek 1 Each Strip) 1 each FS ACHS [facility] Last Admin: 08/26/21 08:04 Dose: 1 each Documented by: Docusate Sodium (Docusate Sodium 100 Mg Capsule) 100 mg PO BID [facility] Last Admin: 08/26/21 08:03 Dose: 100 mg Documented by: Hydroxychloroquine Sulfate (Hydroxychloroquine 200 Mg Tablet) 200 mg PO BID [facility] Last Admin: 08/26/21 08:04 Dose: 200 mg Documented by: Acetaminophen (Ofirmev) 650 mg in 65 mls @ 130 mls/hr IV Q6HP PRN; Protocol PRN Reason: Per Pain Protocol/Fever > 101 Potassium Chloride 40 meq/ (Dextrose) 520 mls @ 130 mls/hr IV ONCE ONE Stop: 08/26/21 12:06 Insulin Human Lispro (Insulin Lispro 1 Unit/0.01 Ml Unit) 0 unit SQ [facility]; Protocol Last Admin: 08/26/21 08:04 Dose: Not Given Documented by: Labetalol HCl (Labetalol 5 Mg/Ml Ml) 0 mg IV Q2HP PRN PRN Reason: Hypertension Melatonin (Melatonin 3 Mg Tablet) 3 mg PO HSP PRN PRN Reason: Insomnia Last Admin: 08/23/21 21:09 Dose: 3 mg Documented by: Ondansetron HCl (Ondansetron 4 Mg Odt Tablet) 4 mg SL Q4-6HP PRN; Protocol PRN Reason: Nausea And Vomiting Ondansetron HCl (Ondansetron 4 Mg/2 Ml Vial) 4 mg IV Q4-6HP PRN; Protocol PRN Reason: Nausea And Vomiting Polyethylene Glycol (Polyethylene Glycol 3350 17 Gm Packet) 17 gm PO DAILYP PRN PRN Reason: Constipation Last Admin: 08/26/21 08:03 Dose: 17 gm Documented by: Potassium Chloride (Potassium Chloride 20 Meq Tablet) 20 meq PO TIDCC [facility] Stop: 08/27/21 07:59 Senna/Docusate Sodium (Sennosides/Docusate Sodium 1 Tab Tablet) 1 tab PO HS [facility] Last Admin: 08/25/21 20:04 Dose: 1 tab Documented by: Sodium Chloride (0.9 % Sodium Chloride 10 Ml Syringe) 10 ml IV Q8 [facility] Last Admin: 08/26/21 05:30 Dose: 10 ml Documented by: Tamsulosin HCl (Tamsulosin 0.4 Mg Capsule) 0.4 mg PO [facility] Last Admin: 08/25/21 20:04 Dose: 0.4 mg Documented by: A/P Narrative A/P Narrative: A: *[place]: 2/2 postobstructive uropathy: -improving *UR/Obstructive uropathy w/postobstructive diuresis: -rios in place -still significant diuresis *Hematuria 2/2 hemorrhagic cystitis: managed per urology *Acute blood loss anemia: 2/2 above -2prbc (08/23) *HTN: *DM type: *HLD continue statin *Tobacco dependence: continue nicotine patch *Hypokalemia: Plan: -Urology/nephrology following -IVF's per urology/nephrology -prn Bladder irrigation per urology, maintain rios and f/u outpt with urology -Monitor fluid balance and orthostatic vitals -prn PRBC transfusion -cont amlodipine. -flomax -SSI -smoking cessation counseling -ppx: SCD Time Spent With Patient Time: Total time spent is greater than 50% in coordination of care (as documented) at patient's floor/unit and/or counseling patient: QUALITY Stroke Symptom Onset Unknown: No VTE Deep Vein Thrombosis/Pulmonary Embolism Present on Admission: No
[2021-08-26] MEDS ORDERED: 0.9 % SODIUM CHLORIDE 750 ML IV SCH (08:45)
[2021-08-26] MEDS: POTASSIUM CHLORIDE 20 MEQ TABLET PO SCH ×3 (08:58→17:22)
[2021-08-26] MEDS: PHOSPHORUS 250 MG TABLET PO SCH ×2 (08:58→21:46)
[2021-08-26] MEDS: TAMSULOSIN 0.4 MG CAPSULE PO SCH (21:45)
[2021-08-26] MEDS: SENNOSIDES/DOCUSATE SODIUM 1 TAB TABLET PO SCH (21:45)
[2021-08-27] MEDS: 0.9 % SODIUM CHLORIDE 10 ML SYRINGE IV SCH ×3 (05:14→20:23)
[2021-08-27 07:31] LABS: ALT/SGPT 32 U/L (<40); AST/SGOT 29 U/L (<40); Albumin 3.2 gm/dL (3.2-5.2); Albumin/Globulin Ratio 0.9 (1.0-2.3); Alkaline Phosphatase 111 U/L (39-117); Bilirubin,Direct < 0.2 mg/dL (0-0.3); Bilirubin,Total 0.3 mg/dL (0.1-1.0); Blood Urea Nitrogen 19 mg/dL (6-20); Calcium 8.3 mg/dL (8.6-10.4); Carbon Dioxide 21 mmol/L (22-30); Chloride 106 mmol/L (96-108); Globulin 3.4 gm/dL (2.2-3.7); Glomerular Filtration Rate 67; Glucose 94 mg/dL (70-105); Lactate Dehydrogenase 189 U/L (135-225); Triglycerides 92 mg/dL (<150); Uric Acid 2.1 mg/dL (2.5-8.0)
[2021-08-27] MEDS ORDERED: NEUTRA PHOS 1 PACKET PO ONE (07:53)
--- NOTE | 2021-08-27 07:57 | Nephrology Progress Note ---
SUBJECTIVE Subjective Patient information: Note initiated : 08/27/21 at 7:55 am Patient: Darell Askew 56 y/o M admitted on 08/22/21 for Sent here by PCP/abn labs. Chief Complaint: Weakness Principal diagnosis: ARF due to acute obstructive uropathy Pertinent ROS: Weakness Kat catheter Constitutional Vitals: Vital Signs Temp Pulse Resp BP Pulse Ox 98.4 F 103 H 19 128/85 98 08/26/21 19:01 08/26/21 00:13 08/27/21 07:02 08/27/21 07:02 08/27/21 07:02 Period Temp Pulse Resp BP Sys/Lawson Pulse Ox Last 24 Hr 97.4 F-98.7 F 13-26 80-165/45-100 92-100 Intake and Output 08/26/21 08/27/21 08/27/21 21:59 05:59 13:59 Intake Total 1270 2400 1480 Output Total 3500 2863 Balance -2230 -463 1480 Weight 137 lb 6.4 oz Intake & Output: Intake & Output 08/26/21 08/27/21 08/27/21 21:59 05:59 13:59 Intake Total 1270 2400 1480 Output Total 3500 2863 Balance -2230 -463 1480 Weight 137 lb 6.4 oz Intake: IV 1270 Sodium Chloride 0.9% 750 ml @ 750 100 mls/hr IV .Q7H30M [facility] Rx#: [id number] Potassium Chloride 40 Meq In 520 Dextrose 5% in Water 500 ml @ 130 mls/hr IV ONCE ONE Rx#: [id number] Oral 2400 1480 Output: Urine Catheter Amount 3500 1213 Void Amount 1650 Other: Urine Appearance Clear Clear Reinserted Kat Clear Small Blood Clots Urine Color Pale Pale Reinserted Kat Pale Urine Odor Normal Head Head exam: Present atraumatic and normal inspection Eye Eye exam: Present normal appearance ENT ENT exam: Present mucous membranes moist, normal exam and normal external ear exam Neck Neck exam: Present normal inspection Respiratory Respiratory exam: Present normal respiratory exam Cardiovascular Cardiovascular exam: Present normal rate and rhythm GI/Abdominal GI/Abdominal exam: Present normal bowel sounds Back Exam Back exam: Present normal inspection Neurological Exam Neurological exam: Present alert and oriented X3 Skin Skin exam: Present intact and warm A/P Assessment and plan (1) HALEIGH (acute kidney injury): Assessment and plan: Darell Askew is a 56-year-old male with diabetes mellitus type 2, hypertension, chronic obstructive pulmonary disease, history suspected of mild inflammatory arthropathy involving peripheral joints with differentials being RA or psoriatic arthropathy on hydroxychloroquine sent to [facility] ED for acute kidney injury. His workup was significant for obstructive nephropathy. He is admitted on 08/23/21. Acute kidney injury due to obstructive nephropathy associated with initial metabolic acidosis, present on arrival, resolving. Dehydration and orthostasis with post obstructive diuresis. Hypokalemia. Previous workup: Labs on 08/21/21: Serum sodium 136, potassium 4.5, CO2 19, creatinine 10.9, eGFR 195, calcium 10.1, albumin 4.4, Vitamin D Total (25-Hydroxy) 25.63, WBC 9.3, hemoglobin 9.9, PLT 264, ESR 122, CRP 9.4, TSH 5.87, urinalysis yellow, clear, pH 6.0, SG 1.009, protein negative, blood >1.0, leukocyte esterase negative. CXR on 08/21/21: Negative PA and lateral chest x-ray. No significant interval change. ED visit on 08/12/21 for pharyngitis. Augmentin 875-125 mg twice daily was prescribed. Labs on 01/11/21: Serum sodium 138, potassium 4.3, CO2 23, creatinine 0.8, eGFR 100, calcium 9.6, random urine microalbumin/creatinine ratio 24.2 mg/g creatinine. Renal US on 09/14/16: Normal kidneys. Work up: Urinalysis on 08/22/21: Yellow, Clear, pH 5.0, SG 1.008, protein negative, blood >1.0, leukocyte esterase negative. CT Abdomen and Pelvis without contrast on 08/22/21: Distended urinary bladder. Bladder outlet obstruction is possible although the prostate is not significantly enlarged. Moderate bilateral hydronephrosis. Cholelithiasis. Multilevel degenerative disc disease. Atherosclerotic calcification. No abdominal aortic aneurysm. Progress: Serum creatinine decreased from 1.3 to 1.2 in the past 24 hours. Baseline serum creatinine: 0.8. Urine output: 7,163 ml reported in the past 24 hours. Metabolic acidosis, mild. Fluid status: I/O: - 4.2 L since admission. Weight: -5 kg since admission. No uremic symptoms. Recommendations/Plan: IV fluids if oral intake is not adequate to keep up with diuresis. Status: Acute (2) Obstructive uropathy: Status: Acute Time Spent With Patient Time: Total time spent is greater than 50% in coordination of care (as documented) at patient's floor/unit and/or counseling patient:
[2021-08-27] MEDS: DOCUSATE SODIUM 100 MG CAPSULE PO SCH ×3 (08:16→20:22)
[2021-08-27] MEDS: ATORVASTATIN 40 MG TABLET PO SCH (08:16)
[2021-08-27] MEDS: HYDROXYCHLOROQUINE 200 MG TABLET PO SCH ×2 (08:16→20:22)
[2021-08-27] MEDS: amLODIPine 5 MG TABLET PO SCH (08:16)
--- NOTE | 2021-08-27 08:18 | Internal Med Progress Note ---
SUBJECTIVE Subjective Patient information: Note initiated : 08/27/21 at 8:14 am Service Date, if different from initiated Date: [] Patient: Darell Askew 56 y/o M admitted on 08/22/21 for Sent here by PCP/abn labs. Chief Complaint: [] Principal diagnosis: ARF due to acute obstructive uropathy Interval history: Principal diagnosis: ARF due to acute obstructive uropathy Interval history: Mr. Askew is a [address] Fontanez's patient with a history of HTN/DM type II/tobacco dependence/HLD who presents to the ER after being directed by PCP office with elevated creatinine of 10.5. Patient has been feeling weak fatigued and complaining of difficulty urination over the last couple of week. He has noted increasing abdominal distention, loss of appetite, fatigue, malaise, weakness and weight loss. He has been experiencing associated nausea/vomiting and has not been able to function over the last couple of weeks. He lives with his sister who has been helping him out during this time. He however denies cough, fever, chills, chest pain, rash, joint pain. He endorses to exertional shortness of breath Initial work-up in the ER was consistent with acute renal failure with a BUN of 195, creatinine 9.5. CT abdomen reveals bilateral hydronephrosis/obstructive uropathy. Rios's catheter was placed and subsequently nephrology was consulted. Patient had 2300 cc output following Rios's placement. [facility] [place] [facility] was consulted for admission. At the time of my evaluation patient is alert but anxious. He was able to answer most the questions. Denies NSAID intake, changes in medications. He denies hematuria, weight loss, shortness of breath but endorses to constipation over the few days. He also endorses to loss of appetite. 08/23-patient overnight on management per nephrology on 4 replacement half cc per 1 cc urine output. Extensive hematuria. Status post 22 Y[place] Rios's catheter placement with flushing. Hemoglobin down to 8 with a baseline hemoglobin 14. [place] blood transfusion today. Urology on board. Creatinine down to 5.5, BUN 131 down from 193, potassium 3.6. Feeling a lot better and appreciative of care. 08/24 No overnight event or new complaints. Still awaiting follow-up chemistry. Gross hematuria. 08/25 Patient no complaints no chest pain shortness of breath lightheadedness. He did have Ortho static changes in blood pressure. Still significant postobstructive diuresis causing orthostatic hypotension. Will give 500 cc of likely NS today 08/26 Doing well. Still putting a lot of the urine. Give some IV fluids today to keep up with balance and as soon as his urine output slows down and orthostatic vital signs are unremarkable will look at discharge. 08/27 Patient seems to be doing well no new complaints. However still putting out significant amount of urine, and his orthostatic vital signs are still positive. Did get IV fluid yesterday. BUN and creatinine much improved. Hypokalemia resolved. Phos a little low. Review of Systems: denies headache/fever/chills/nausea/vomiting/chest or abdominal pain/cough/dyspnea/diarrhea. Otherwise see above. Constitutional Vitals: Vital Signs Temp Pulse Resp BP Pulse Ox 98.4 F 103 H 19 128/85 98 08/26/21 19:01 08/26/21 00:13 08/27/21 07:02 08/27/21 07:02 08/27/21 07:02 Period Temp Pulse Resp BP Sys/Lawson Pulse Ox Last 24 Hr 98.4 F-98.7 F 13-26 80-143/45-96 96-100 Intake and Output 08/26/21 08/27/21 08/27/21 21:59 05:59 13:59 Intake Total 1270 2400 1480 Output Total 3500 2863 Balance -2230 -463 1480 Weight 62.324 kg Intake & Output: Intake & Output 08/26/21 08/27/21 08/27/21 21:59 05:59 13:59 Intake Total 1270 2400 1480 Output Total 3500 2863 Balance -2230 -463 1480 Weight 62.324 kg Intake: IV 1270 Sodium Chloride 0.9% 750 ml @ 750 100 mls/hr IV .Q7H30M [facility] Rx#: [id number] Potassium Chloride 40 Meq In 520 Dextrose 5% in Water 500 ml @ 130 mls/hr IV ONCE ONE Rx#: [id number] Oral 2400 1480 Output: Urine Catheter Amount 3500 1213 Void Amount 1650 Other: Urine Appearance Clear Clear Reinserted Rios Clear Small Blood Clots Urine Color Pale Pale Reinserted Rios Pale Urine Odor Normal Exam: General: Alert, Awake, No acute Distress Eyes/N/T: EOMI, Head/Neck: neck supple, CV: RRR, No murmurs, Pulm: Clear b/l, no wheezing/rhonchi/rales Abd: soft, nontender, +BS x4 Ext: no clubbing/cyanosis/edema Neuro: Alert, no focal deficits, moves all extremities, Skin: warm/dry : Gross hematuria OBJ DATA Labs CBC & Chem 7: 08/26/21 04:58 08/27/21 04:56 Labs: Abnormal Lab Results 08/27/21 08/26/21 08/26/21 04:56 04:58 04:58 RBC Hgb 9.3 L Hct 28.8 L MPV Lymph % (Auto) Allen % (Auto) Lymph # (Auto) Sodium Potassium 2.8 L* Chloride Carbon Dioxide 21 L BUN Creatinine 1.3 H Glucose Uric Acid 2.1 L 2.3 L Calcium 8.3 L 7.8 L Phosphorus 2.0 L 2.0 L Albumin/Globulin Ratio 0.9 L 0.9 L 08/25/21 08/25/21 08/24/21 05:53 05:52 15:37 RBC Hgb 10.3 L Hct 31.4 L MPV Lymph % (Auto) Allen % (Auto) Lymph # (Auto) Sodium Potassium Chloride Carbon Dioxide 21 L 19 L BUN 25 H 44 H Creatinine 1.5 H 1.7 H Glucose 112 H Uric Acid Calcium 8.2 L 8.0 L Phosphorus 1.7 L Albumin/Globulin Ratio 0.9 L 08/24/21 08/24/21 05:34 05:34 RBC 3.47 L Hgb 10.3 L Hct 31.5 L MPV 11.9 H Lymph % (Auto) 7.9 L Allen % (Auto) 14.6 H Lymph # (Auto) 0.43 L Sodium 148 H Potassium Chloride 118 H Carbon Dioxide 19 L BUN 62 H Creatinine 2.3 H Glucose Uric Acid Calcium Phosphorus Albumin/Globulin Ratio 0.9 L Meds: Medications Acetaminophen (Acetaminophen 325 Mg Tablet) 650 mg PO Q4-6HP PRN; Protocol PRN Reason: Per Pain Protocol/Fever > 101 Last Admin: 08/23/21 18:40 Dose: 650 mg Documented by: Amlodipine Besylate (Amlodipine 5 Mg Tablet) 5 mg PO DAILY [facility] Last Admin: 08/26/21 08:03 Dose: 5 mg Documented by: Atorvastatin Calcium (Atorvastatin 40 Mg Tablet) 40 mg PO QDAY [facility] Last Admin: 08/26/21 08:03 Dose: 40 mg Documented by: Bisacodyl (Bisacodyl 10 Mg Supp.Rect) 10 mg ND Q2-3DAYS PRN PRN Reason: Constipation Diagnostic Test (Pha) (Accu-Chek 1 Each Strip) [address] [facility] Last Admin: 08/26/21 21:48 Dose: 1 each Documented by: Docusate Sodium (Docusate Sodium 100 Mg Capsule) 100 mg PO BID [facility] Last Admin: 08/26/21 21:45 Dose: 100 mg Documented by: Hydroxychloroquine Sulfate (Hydroxychloroquine 200 Mg Tablet) 200 mg PO BID [facility] Last Admin: 08/26/21 21:45 Dose: 200 mg Documented by: Acetaminophen (Ofirmev) 650 mg in 65 mls @ 130 mls/hr IV Q6HP PRN; Protocol PRN Reason: Per Pain Protocol/Fever > 101 Insulin Human Lispro (Insulin Lispro 1 Unit/0.01 Ml Unit) [address] [facility]; Protocol Last Admin: 08/26/21 21:49 Dose: Not Given Documented by: Labetalol HCl (Labetalol 5 Mg/Ml Ml) 0 mg IV Q2HP PRN PRN Reason: Hypertension Melatonin (Melatonin 3 Mg Tablet) 3 mg PO HSP PRN PRN Reason: Insomnia Last Admin: 08/23/21 21:09 Dose: 3 mg Documented by: Ondansetron HCl (Ondansetron 4 Mg Odt Tablet) 4 mg SL Q4-6HP PRN; Protocol PRN Reason: Nausea And Vomiting Ondansetron HCl (Ondansetron 4 Mg/2 Ml Vial) 4 mg IV Q4-6HP PRN; Protocol PRN Reason: Nausea And Vomiting Last Admin: 08/27/21 00:05 Dose: 4 mg Documented by: Polyethylene Glycol (Polyethylene Glycol 3350 17 Gm Packet) 17 gm PO DAILYP PRN PRN Reason: Constipation Last Admin: 08/26/21 08:03 Dose: 17 gm Documented by: Senna/Docusate Sodium (Sennosides/Docusate Sodium 1 Tab Tablet) 1 tab PO [facility] Last Admin: 08/26/21 21:45 Dose: 1 tab Documented by: Sodium Chloride (0.9 % Sodium Chloride 10 Ml Syringe) 10 ml IV Q8 [facility] Last Admin: 08/27/21 05:14 Dose: 10 ml Documented by: Tamsulosin HCl (Tamsulosin 0.4 Mg Capsule) 0.4 mg PO [facility] Last Admin: 08/26/21 21:45 Dose: 0.4 mg Documented by: A/P Narrative A/P Narrative: A: *[place]: 2/2 postobstructive uropathy: -improved *UR/Obstructive uropathy w/postobstructive diuresis: -rios in place -still significant diuresis (nephrogenic DI?) *Hematuria 2/2 hemorrhagic cystitis: managed per urology *Acute blood loss anemia: 2/2 above -2prbc (08/23) *HTN: *DM type: *HLD continue statin *Tobacco dependence: continue nicotine patch *Hypokalemia: resolved Plan: -nephrology following -prn IVF's -Monitor fluid balance and orthostatic vitals -per urology, maintain rios and f/u outpt with urology -d/c when postdiuresis slows down -prn PRBC transfusion -cont amlodipine -flomax -SSI -smoking cessation counseling -ppx: SCD Time Spent With Patient Time: Total time spent is greater than 50% in coordination of care (as documented) at patient's floor/unit and/or counseling patient: QUALITY Stroke Symptom Onset Unknown: No VTE Deep Vein Thrombosis/Pulmonary Embolism Present on Admission: No
[2021-08-27] MEDS: INSULIN LISPRO 1 UNIT/0.01 ML UNIT SQ SCH ×4 (08:19→20:22)
[2021-08-27] MEDS: PHOSPHORUS 250 MG TABLET PO SCH ×2 (08:47→20:22)
[2021-08-27] MEDS: NEUTRA PHOS 1 PACKET PO SCH ×2 (09:10→20:22)
[2021-08-27] MEDS: SENNOSIDES/DOCUSATE SODIUM 1 TAB TABLET PO SCH (20:22)
[2021-08-27] MEDS: TAMSULOSIN 0.4 MG CAPSULE PO SCH (20:22)
[2021-08-28 07:31] LABS: ALT/SGPT 34 U/L (<40); AST/SGOT 28 U/L (<40); Albumin 3.1 gm/dL (3.2-5.2); Albumin/Globulin Ratio 0.8 (1.0-2.3); Alkaline Phosphatase 117 U/L (39-117); Bilirubin,Direct < 0.2 mg/dL (0-0.3); Bilirubin,Total 0.2 mg/dL (0.1-1.0); Blood Urea Nitrogen 18 mg/dL (6-20); Calcium 8.4 mg/dL (8.6-10.4); Carbon Dioxide 22 mmol/L (22-30); Chloride 108 mmol/L (96-108); Globulin 3.7 gm/dL (2.2-3.7); Glomerular Filtration Rate 67; Glucose 121 mg/dL (70-105); Lactate Dehydrogenase 179 U/L (135-225); Phosphorous 2.3 mg/dL (2.5-4.5); Triglycerides 103 mg/dL (<150); Uric Acid 2.7 mg/dL (2.5-8.0)
--- NOTE | 2021-08-28 07:31 | Nephrology Progress Note ---
SUBJECTIVE Subjective Patient information: Note initiated : 08/28/21 at 7:28 am Service Date, if different from initiated Date: [] Patient: Darell Askew 56 y/o M admitted on 08/22/21 for Sent here by PCP/abn labs. Chief Complaint: Weakness Principal diagnosis: ARF due to acute obstructive uropathy Pertinent ROS: Weakness Polydipsia and polyuria Kat catheter with clear urine Constitutional Vitals: Vital Signs Temp Pulse Resp BP Pulse Ox 97.2 F 88 17 138/84 92 08/28/21 06:42 08/28/21 06:42 08/28/21 06:42 08/28/21 06:42 08/28/21 06:42 Period Temp Pulse Resp BP Sys/Lawson Pulse Ox Last 24 Hr 97.2 F-99.7 F 75-120 16-20 86-138/50-84 92-100 Intake and Output 08/27/21 08/28/21 08/28/21 21:59 05:59 13:59 Intake Total 1720 120 Output Total 3175 1350 Balance -1455 -1230 Weight 137 lb 3.2 oz Intake & Output: Intake & Output 08/27/21 08/28/21 08/28/21 21:59 05:59 13:59 Intake Total 1720 120 Output Total 3175 1350 Balance -1455 -1230 Weight 137 lb 3.2 oz Intake: Oral 1720 120 Output: Urine Catheter Amount 3175 1350 Other: Urine Appearance Clear Clear Urine Color Bright Yellow Bright Yellow General appearance: cooperative and no acute distress Head Head exam: Present normal inspection Eye Eye exam: Present normal appearance ENT ENT exam: Present mucous membranes moist Respiratory Respiratory exam: Absent respiratory distress Cardiovascular Cardiovascular exam: Present normal rate and rhythm GI/Abdominal GI/Abdominal exam: Present soft; Absent tenderness Extremities Exam Extremities exam: Absent joint swelling or pedal edema Neurological Exam Neurological exam: Present alert and oriented X3 Psychiatric Psychiatric exam: Present normal affect and normal mood Skin Skin exam: Present warm; Absent rash A/P Assessment and plan (1) [place] (acute kidney injury): Assessment and plan: Darell Askew is a 56-year-old male with diabetes mellitus type 2, hypertension, chronic obstructive pulmonary disease, history suspected of mild inflammatory arthropathy involving peripheral joints with differentials being RA or psoriatic arthropathy on hydroxychloroquine sent to [facility] ED for acute kidney injury. His workup was significant for obstructive nephropathy. He is admitted on 08/23/21. Acute kidney injury due to obstructive nephropathy associated with initial metabolic acidosis, present on arrival, resolving. Orthostatic hypotension. Polydipsia and polyuria with post obstructive diuresis vs psychogenic polydipsia. Previous workup: Labs on 08/21/21: Serum sodium 136, potassium 4.5, CO2 19, creatinine 10.9, eGFR 195, calcium 10.1, albumin 4.4, Vitamin D Total (25-Hydroxy) 25.63, WBC 9.3, hemoglobin 9.9, PLT 264, ESR 122, CRP 9.4, TSH 5.87, urinalysis yellow, clear, pH 6.0, SG 1.009, protein negative, blood >1.0, leukocyte esterase negative. CXR on 08/21/21: Negative PA and lateral chest x-ray. No significant interval change. ED visit on 08/12/21 for pharyngitis. Augmentin 875-125 mg twice daily was prescribed. Labs on 01/11/21: Serum sodium 138, potassium 4.3, CO2 23, creatinine 0.8, eGFR 100, calcium 9.6, random urine microalbumin/creatinine ratio 24.2 mg/g creatinine. Renal US on 09/14/16: Normal kidneys. Work up: Urinalysis on 08/22/21: Yellow, Clear, pH 5.0, SG 1.008, protein negative, blood >1.0, leukocyte esterase negative. CT Abdomen and Pelvis without contrast on 08/22/21: Distended urinary bladder. Bladder outlet obstruction is possible although the prostate is not significantly enlarged. Moderate bilateral hydronephrosis. Cholelithiasis. Multilevel degenerative disc disease. Atherosclerotic calcification. No abdominal aortic aneurysm. Progress: Serum creatinine 1.2, did not change in the past 24 hours. Baseline serum creatinine: 0.8. Urine output: 5,775 ml reported in the past 24 hours. Fluid status: I/O: - 7.6 L since admission. Weight: -5 kg since admission. No uremic symptoms. Recommendations/Plan: Amlodipine discontinued for now due to orthostatic hypotension. Status: Acute (2) Obstructive uropathy: Status: Acute Time Spent With Patient Time: Total time spent is greater than 50% in coordination of care (as documented) at patient's floor/unit and/or counseling patient:
[2021-08-28] MEDS: INSULIN LISPRO 1 UNIT/0.01 ML UNIT SQ SCH ×4 (07:35→21:57)
--- NOTE | 2021-08-28 07:50 | Internal Med Progress Note ---
SUBJECTIVE Subjective Patient information: Note initiated : 08/28/21 at 7:44 am Service Date, if different from initiated Date: [] Patient: Darell Askew 56 y/o M admitted on 08/22/21 for Sent here by PCP/abn labs. Chief Complaint: [] Principal diagnosis: ARF due to acute obstructive uropathy Interval history: Principal diagnosis: ARF due to acute obstructive uropathy Interval history: Mr. Askew is a [address] Fontanez's patient with a history of HTN/DM type II/tobacco dependence/HLD who presents to the ER after being directed by PCP office with elevated creatinine of 10.5. Patient has been feeling weak fatigued and complaining of difficulty urination over the last couple of week. He has noted increasing abdominal distention, loss of appetite, fatigue, malaise, weakness and weight loss. He has been experiencing associated nausea/vomiting and has not been able to function over the last couple of weeks. He lives with his sister who has been helping him out during this time. He however denies cough, fever, chills, chest pain, rash, joint pain. He endorses to exertional shortness of breath Initial work-up in the ER was consistent with acute renal failure with a BUN of 195, creatinine 9.5. CT abdomen reveals bilateral hydronephrosis/obstructive uropathy. Rios's catheter was placed and subsequently nephrology was consulted. Patient had 2300 cc output following Rios's placement. [facility] hospitalist service was consulted for admission. At the time of my evaluation patient is alert but anxious. He was able to answer most the questions. Denies NSAID intake, changes in medications. He denies hematuria, weight loss, shortness of breath but endorses to constipation over the few days. He also endorses to loss of appetite. 08/23-patient overnight on management per nephrology on 4 replacement half cc per 1 cc urine output. Extensive hematuria. Status post 22 Lao Rios's catheter placement with flushing. Hemoglobin down to 8 with a baseline hemoglobin 14. [place] blood transfusion today. Urology on board. Creatinine down to 5.5, BUN 131 down from 193, potassium 3.6. Feeling a lot better and appreciative of care. 08/24 No overnight event or new complaints. Still awaiting follow-up chemistry. Gross hematuria. 08/25 Patient no complaints no chest pain shortness of breath lightheadedness. He did have Ortho static changes in blood pressure. Still significant postobstructive diuresis causing orthostatic hypotension. Will give 500 cc of likely NS today 08/26 Doing well. Still putting a lot of the urine. Give some IV fluids today to keep up with balance and as soon as his urine output slows down and orthostatic vital signs are unremarkable will look at discharge. 08/27 Patient seems to be doing well no new complaints. However still putting out significant amount of urine, and his orthostatic vital signs are still positive. Did get IV fluid yesterday. BUN and creatinine much improved. Hypokalemia resolved. Phos a little low. 08/28 Patient missed to drinking several gallons of water daily on a typical day and has been doing this for long time. Placed amount of fluid restrict correction diet yesterday. Sodium came up 5 points. Still with significant urine output. Awaiting urine osmole update. Patient feels quite dry since putting him on the fluid restriction. Review of Systems: denies headache/fever/chills/nausea/vomiting/chest or abdominal pain/cough/dyspnea/diarrhea. Otherwise see above. Constitutional Vitals: Vital Signs Temp Pulse Resp BP Pulse Ox 97.2 F 88 17 138/84 92 08/28/21 06:42 08/28/21 06:42 08/28/21 06:42 08/28/21 06:42 08/28/21 06:42 Period Temp Pulse Resp BP Sys/Lawson Pulse Ox Last 24 Hr 97.2 F-99.7 F 75-120 16-20 86-138/50-84 92-100 Intake and Output 08/27/21 08/28/21 08/28/21 21:59 05:59 13:59 Intake Total 1720 120 Output Total 3175 1350 Balance -1455 -1230 Weight 62.233 kg Intake & Output: Intake & Output 08/27/21 08/28/21 08/28/21 21:59 05:59 13:59 Intake Total 1720 120 Output Total 3175 1350 Balance -1455 -1230 Weight 62.233 kg Intake: Oral 1720 120 Output: Urine Catheter Amount 3175 1350 Other: Urine Appearance Clear Clear Urine Color Bright Yellow Bright Yellow Exam: General: Alert, Awake, No acute Distress Eyes/N/T: EOMI, Head/Neck: neck supple, CV: RRR, No murmurs, Pulm: Clear b/l, no wheezing/rhonchi/rales Abd: soft, nontender, +BS x4 Ext: no clubbing/cyanosis/edema Neuro: Alert, no focal deficits, moves all extremities, Skin: warm/dry : Gross hematuria OBJ DATA Labs CBC & Chem 7: 08/26/21 04:58 08/28/21 05:09 Labs: Abnormal Lab Results 08/28/21 08/27/21 08/26/21 05:09 04:56 04:58 Hgb 9.3 L Hct 28.8 L Potassium Carbon Dioxide 21 L BUN Creatinine Glucose 121 H Uric Acid 2.1 L Calcium 8.4 L 8.3 L Phosphorus 2.3 L 2.0 L Albumin 3.1 L Albumin/Globulin Ratio 0.8 L 0.9 L 08/26/21 08/25/21 08/25/21 04:58 05:53 05:52 Hgb 10.3 L Hct 31.4 L Potassium 2.8 L* Carbon Dioxide 21 L BUN 25 H Creatinine 1.3 H 1.5 H Glucose Uric Acid 2.3 L Calcium 7.8 L 8.2 L Phosphorus 2.0 L 1.7 L Albumin Albumin/Globulin Ratio 0.9 L 0.9 L Meds: Medications Acetaminophen (Acetaminophen 325 Mg Tablet) 650 mg PO Q4-6HP PRN; Protocol PRN Reason: Per Pain Protocol/Fever > 101 Last Admin: 08/23/21 18:40 Dose: 650 mg Documented by: Atorvastatin Calcium (Atorvastatin 40 Mg Tablet) 40 mg PO QDAY [facility] Last Admin: 08/27/21 08:16 Dose: 40 mg Documented by: Bisacodyl (Bisacodyl 10 Mg Supp.Rect) 10 mg OR Q2-3DAYS PRN PRN Reason: Constipation Diagnostic Test (Pha) (Accu-Chek 1 Each Strip) 1 each FS ACHS [facility] Last Admin: 08/28/21 07:35 Dose: 1 each Documented by: Docusate Sodium (Docusate Sodium 100 Mg Capsule) 100 mg PO BID [facility] Last Admin: 08/27/21 20:22 Dose: 100 mg Documented by: Hydroxychloroquine Sulfate (Hydroxychloroquine 200 Mg Tablet) 200 mg PO BID [facility] Last Admin: 08/27/21 20:22 Dose: 200 mg Documented by: Acetaminophen (Ofirmev) 650 mg in 65 mls @ 130 mls/hr IV Q6HP PRN; Protocol PRN Reason: Per Pain Protocol/Fever > 101 Insulin Human Lispro (Insulin Lispro 1 Unit/0.01 Ml Unit) 0 unit SQ ACHS [facility]; Protocol Last Admin: 08/28/21 07:35 Dose: Not Given Documented by: Labetalol HCl (Labetalol 5 Mg/Ml Ml) 0 mg IV Q2HP PRN PRN Reason: Hypertension Melatonin (Melatonin 3 Mg Tablet) 3 mg PO HSP PRN PRN Reason: Insomnia Last Admin: 08/23/21 21:09 Dose: 3 mg Documented by: Ondansetron HCl (Ondansetron 4 Mg Odt Tablet) 4 mg SL Q4-6HP PRN; Protocol PRN Reason: Nausea And Vomiting Ondansetron HCl (Ondansetron 4 Mg/2 Ml Vial) 4 mg IV Q4-6HP PRN; Protocol PRN Reason: Nausea And Vomiting Last Admin: 08/27/21 00:05 Dose: 4 mg Documented by: Polyethylene Glycol (Polyethylene Glycol 3350 17 Gm Packet) 17 gm PO DAILYP PRN PRN Reason: Constipation Last Admin: 08/26/21 08:03 Dose: 17 gm Documented by: Potassium/Phosphorus/Sodium (Neutra Phos 1 Packet) 2 packet PO BID [facility] Stop: 08/28/21 09:01 Last Admin: 08/27/21 20:22 Dose: 2 packet Documented by: Senna/Docusate Sodium (Sennosides/Docusate Sodium 1 Tab Tablet) 1 tab PO [facility] Last Admin: 08/27/21 20:22 Dose: 1 tab Documented by: Sodium Chloride (0.9 % Sodium Chloride 10 Ml Syringe) 10 ml IV Q8 [facility] Last Admin: 08/27/21 20:23 Dose: 10 ml Documented by: Sodium Phosphate (Phosphorus 250 Mg Tablet) 250 mg PO BID [facility] Stop: 08/28/21 09:01 Last Admin: 08/27/21 20:22 Dose: 250 mg Documented by: Tamsulosin HCl (Tamsulosin 0.4 Mg Capsule) 0.4 mg PO [facility] Last Admin: 08/27/21 20:22 Dose: 0.4 mg Documented by: A/P Narrative A/P Narrative: A: *[place]: 2/2 postobstructive uropathy: -resolved *UR/Obstructive uropathy w/postobstructive diuresis: -rios in place -still significant diuresis (nephrogenic DI?) *Central vs Nephrogenic DI vs primary polydypsia: pending urine osm after placing daily fluid restrict *Hematuria 2/2 hemorrhagic cystitis: managed per urology *Acute blood loss anemia: 2/2 above -2prbc (08/23) *HTN: *DM type: *HLD continue statin *Tobacco dependence: continue nicotine patch *Hypokalemia: resolved * Plan: -nephrology following -placed fluid restrict given volume of oral intake, monitor sodium and urine osm, copeptin pending -Monitor fluid balance and orthostatic vitals -per urology, maintain rios and f/u outpt with urology -d/c when postdiuresis slows down -prn PRBC transfusion -amlodipinestopped per nephro for intermittently low-normal bp's -flomax -SSI -smoking cessation counseling -ppx: SCD Time Spent With Patient Time: Total time spent is greater than 50% in coordination of care (as documented) at patient's floor/unit and/or counseling patient: QUALITY Stroke Symptom Onset Unknown: No VTE Deep Vein Thrombosis/Pulmonary Embolism Present on Admission: No
[2021-08-28] MEDS: PHOSPHORUS 250 MG TABLET PO SCH (08:34)
[2021-08-28] MEDS: 0.9 % SODIUM CHLORIDE 10 ML SYRINGE IV SCH ×3 (08:34→21:57)
[2021-08-28] MEDS: DOCUSATE SODIUM 100 MG CAPSULE PO SCH ×2 (08:34→21:55)
[2021-08-28] MEDS: NEUTRA PHOS 1 PACKET PO SCH (08:34)
[2021-08-28] MEDS: ATORVASTATIN 40 MG TABLET PO SCH (08:35)
[2021-08-28] MEDS: HYDROXYCHLOROQUINE 200 MG TABLET PO SCH ×2 (08:35→21:55)
[2021-08-28] MEDS ORDERED: POTASSIUM CHLORIDE 20 MEQ TABLET PO ONE (10:03)
[2021-08-28 13:52] LABS: Potassium,Urine Random 16.8 mmol/L
[2021-08-28] MEDS: TAMSULOSIN 0.4 MG CAPSULE PO SCH (21:55)
[2021-08-28] MEDS: SENNOSIDES/DOCUSATE SODIUM 1 TAB TABLET PO SCH (21:55)
[2021-08-29] MEDS: 0.9 % SODIUM CHLORIDE 10 ML SYRINGE IV SCH ×3 (04:30→21:19)
[2021-08-29] MEDS: INSULIN LISPRO 1 UNIT/0.01 ML UNIT SQ SCH ×4 (07:12→21:18)
[2021-08-29] MEDS: ATORVASTATIN 40 MG TABLET PO SCH (08:07)
[2021-08-29] MEDS: HYDROXYCHLOROQUINE 200 MG TABLET PO SCH ×2 (08:07→21:17)
[2021-08-29] MEDS: DOCUSATE SODIUM 100 MG CAPSULE PO SCH ×2 (09:21→21:17)
[2021-08-29 09:30] LABS: Blood Urea Nitrogen 21 mg/dL (6-20); Calcium 8.5 mg/dL (8.6-10.4); Carbon Dioxide 21 mmol/L (22-30); Chloride 114 mmol/L (96-108); Glomerular Filtration Rate 83; Glucose 80 mg/dL (70-105)
--- NOTE | 2021-08-29 09:35 | Nephrology Progress Note ---
SUBJECTIVE Subjective Patient information: Note initiated : 08/29/21 at 9:34 am Patient: Darell Askew 56 y/o M admitted on 08/22/21 for Sent here by PCP/abn labs. Chief Complaint: Weakness Principal diagnosis: ARF due to acute obstructive uropathy Pertinent ROS: Weakness Kat catheter with clear urine Constitutional Vitals: Vital Signs Temp Pulse Resp BP Pulse Ox 96.6 F L 97 H 16 122/81 98 08/29/21 07:27 08/29/21 07:27 08/29/21 07:27 08/29/21 07:27 08/29/21 07:27 Period Temp Pulse Resp BP Sys/Lawson Pulse Ox Last 24 Hr 96.6 F-98.6 F 82-109 15-20 86-129/55-86 92-100 Intake and Output 08/28/21 08/29/21 08/29/21 21:59 05:59 13:59 Intake Total 880 225 400 Output Total 650 1400 650 Balance 230 -1175 -250 Weight 138 lb 12.8 oz Intake & Output: Intake & Output 08/28/21 08/29/21 08/29/21 21:59 05:59 13:59 Intake Total 880 225 400 Output Total 650 1400 650 Balance 230 -1175 -250 Weight 138 lb 12.8 oz Intake: Nourishment/Supplement quantity 240 (ml) Oral 640 225 400 Output: Urine Catheter Amount 650 1400 650 Other: Meal Dinner Percent of Meal Consumed 75% Feeding Ability Independent Nourishment/Supplement name Ensure Urine Appearance Clear Clear Clear Urine Color Dark Yellow Bright Yellow Bright Yellow Urine Odor Normal Normal Head Head exam: Present atraumatic and normal inspection Eye Eye exam: Present normal appearance ENT ENT exam: Present mucous membranes moist, normal exam and normal external ear exam Neck Neck exam: Present normal inspection Respiratory Respiratory exam: Present normal respiratory exam Cardiovascular Cardiovascular exam: Present normal rate and rhythm GI/Abdominal GI/Abdominal exam: Present normal bowel sounds Back Exam Back exam: Present normal inspection Neurological Exam Neurological exam: Present alert and oriented X3 Skin Skin exam: Present intact and warm A/P Assessment and plan (1) HALEIGH (acute kidney injury): Assessment and plan: Darell Askew is a 56-year-old male with diabetes mellitus type 2, hypertension, chronic obstructive pulmonary disease, history suspected of mild inflammatory arthropathy involving peripheral joints with differentials being RA or psoriatic arthropathy on hydroxychloroquine sent to [facility] ED for acute kidney injury. His workup was significant for obstructive nephropathy. He is admitted on 08/23/21. Acute kidney injury due to obstructive nephropathy associated with initial metabolic acidosis, present on arrival, resolved. Orthostatic hypotension, improved. Polydipsia and polyuria with post obstructive diuresis vs psychogenic polydipsia, improved. Previous workup: Labs on 08/21/21: Serum sodium 136, potassium 4.5, CO2 19, creatinine 10.9, eGFR 195, calcium 10.1, albumin 4.4, Vitamin D Total (25-Hydroxy) 25.63, WBC 9.3, hemoglobin 9.9, PLT 264, ESR 122, CRP 9.4, TSH 5.87, urinalysis yellow, clear, pH 6.0, SG 1.009, protein negative, blood >1.0, leukocyte esterase negative. CXR on 08/21/21: Negative PA and lateral chest x-ray. No significant interval change. ED visit on 08/12/21 for pharyngitis. Augmentin 875-125 mg twice daily was prescribed. Labs on 01/11/21: Serum sodium 138, potassium 4.3, CO2 23, creatinine 0.8, eGFR 100, calcium 9.6, random urine microalbumin/creatinine ratio 24.2 mg/g creatinine. Renal US on 09/14/16: Normal kidneys. Work up: Urinalysis on 08/22/21: Yellow, Clear, pH 5.0, SG 1.008, protein negative, blood >1.0, leukocyte esterase negative. CT Abdomen and Pelvis without contrast on 08/22/21: Distended urinary bladder. Bladder outlet obstruction is possible although the prostate is not significantly enlarged. Moderate bilateral hydronephrosis. Cholelithiasis. Multilevel degenerative disc disease. Atherosclerotic calcification. No abdominal aortic aneurysm. Progress: Serum creatinine decreased from 1.2 to 1.0 in the past 24 hours. Baseline serum creatinine: 0.8. Urine output: 2,900 ml reported in the past 24 hours. Fluid status: I/O: -8.8 L since admission. Weight: -4 kg since admission. Recommendations/Plan: Nephrology will sign off. Status: Acute (2) Obstructive uropathy: Status: Acute Time Spent With Patient Time: Total time spent is greater than 50% in coordination of care (as documented) at patient's floor/unit and/or counseling patient:
--- NOTE | 2021-08-29 16:52 | Internal Med Progress Note ---
SUBJECTIVE Subjective Patient information: Note initiated : 08/29/21 at 4:49 pm Service Date, if different from initiated Date: [] Patient: Darell Askew a 56 y/o M admitted on 08/22/21 for Sent here by PCP/abn labs. Chief Complaint: [] Principal diagnosis: ARF due to acute obstructive uropathy Interval history: Mr. Askew is a [address] Fontanez's patient with a history of HTN/DM type II/tobacco dependence/HLD who presents to the ER after being directed by PCP office with elevated creatinine of 10.5. Patient has been feeling weak fatigued and complaining of difficulty urination over the last couple of week. He has noted increasing abdominal distention, loss of appetite, fatigue, malaise, weakness and weight loss. He has been experiencing associated nausea/vomiting and has not been able to function over the last couple of weeks. He lives with his sister who has been helping him out during this time. He however denies cough, fever, chills, chest pain, rash, joint pain. He endorses to exertional shortness of breath Initial work-up in the ER was consistent with acute renal failure with a BUN of 195, creatinine 9.5. CT abdomen reveals bilateral hydronephrosis/obstructive uropathy. Kat's catheter was placed and subsequently nephrology was consulted. Patient had 2300 cc output following Kat's placement. Subsequently hospitalist service was consulted for admission. At the time of my evaluation patient is alert but anxious. He was able to answer most the questions. Denies NSAID intake, changes in medications. He denies hematuria, weight loss, shortness of breath but endorses to constipation over the few days. He also endorses to loss of appetite. 08/23-patient overnight on management per nephrology on 4 replacement half cc per 1 cc urine output. Extensive hematuria. Status post 22 [place] Kat's catheter placement with flushing. Hemoglobin down to 8 with a baseline hemoglobin 14. [place] blood transfusion today. Urology on board. Creatinine down to 5.5, BUN 131 down from 193, potassium 3.6. Feeling a lot better and appreciative of care. 08/24 No overnight event or new complaints. Still awaiting follow-up chemistry. Gross hematuria. 08/25 Patient no complaints no chest pain shortness of breath lightheadedness. He did have Ortho static changes in blood pressure. Still significant postobstructive diuresis causing orthostatic hypotension. Will give 500 cc of likely NS today 08/26 Doing well. Still putting a lot of the urine. Give some IV fluids today to k eep up with balance and as soon as his urine output slows down and orthostatic vital signs are unremarkable will look at discharge. 08/27 Patient seems to be doing well no new complaints. However still putting out significant amount of urine, and his orthostatic vital signs are still positive. Did get IV fluid yesterday. BUN and creatinine much improved. Hypokalemia resolved. Phos a little low. 08/28 Patient missed to drinking several gallons of water daily on a typical day and has been doing this for long time. Placed amount of fluid restrict correction diet yesterday. Sodium came up 5 points. Still with significant urine output. Awaiting urine osmole update. Patient feels quite dry since putting him on the fluid restriction. 08/29: 2900ml urine output over the last 24 hour. Serum Cr level 1.0 today, baseline 0.8. Kat catheter still in. c/o thirsty. Denies any pain or discomfort. Constitutional Vitals: Vital Signs Temp Pulse Resp BP Pulse Ox 35.8 C L 99 H 16 128/81 94 08/29/21 12:00 08/29/21 12:00 08/29/21 12:00 08/29/21 12:00 08/29/21 12:00 Period Temp Pulse Resp BP Sys/Lawson Pulse Ox Last 24 Hr 35.8 C-36.9 C 82-109 16-20 86-128/55-86 94-100 Intake and Output 08/29/21 08/29/21 08/29/21 05:59 13:59 21:59 Intake Total 225 400 Output Total 1400 650 Balance -1175 -250 Intake & Output: Intake & Output 08/29/21 08/29/21 08/29/21 05:59 13:59 21:59 Intake Total 225 400 Output Total 1400 650 Balance -1175 -250 Intake: Oral 225 400 Output: Urine Catheter Amount 1400 650 Other: Urine Appearance Clear Clear Urine Color Bright Yellow Bright Yellow Urine Odor Normal Head Head exam: Present atraumatic and normal inspection Eye Eye exam: Present normal appearance ENT ENT exam: Present mucous membranes moist, normal exam and normal external ear exam Neck Neck exam: Present normal inspection Respiratory Respiratory exam: Present normal respiratory exam Cardiovascular Cardiovascular exam: Present normal rate and rhythm GI/Abdominal GI/Abdominal exam: Present normal bowel sounds Additional comments: Kat catheter in place Back Exam Back exam: Present normal inspection Neurological Exam Neurological exam: Present alert and oriented X3 Skin Skin exam: Present intact and warm OBJ DATA Labs CBC & Chem 7: 08/26/21 04:58 08/29/21 05:09 Labs: Abnormal Lab Results 08/29/21 08/29/21 08/28/21 05:09 05:09 09:39 Chloride 114 H Carbon Dioxide 21 L BUN 21 H Glucose Osmolality 301 H Uric Acid Calcium 8.5 L Phosphorus Albumin Albumin/Globulin Ratio Ur Random Chloride 22 L 08/28/21 08/28/21 08/27/21 05:09 05:09 04:56 Chloride Carbon Dioxide 21 L BUN Glucose 121 H Osmolality 303 H Uric Acid 2.1 L Calcium 8.4 L 8.3 L Phosphorus 2.3 L 2.0 L Albumin 3.1 L Albumin/Globulin Ratio 0.8 L 0.9 L Ur Random Chloride Meds: Medications Acetaminophen (Acetaminophen 325 Mg Tablet) 650 mg PO Q4-6HP PRN; Protocol PRN Reason: Per Pain Protocol/Fever > 101 Last Admin: 08/23/21 18:40 Dose: 650 mg Documented by: Atorvastatin Calcium (Atorvastatin 40 Mg Tablet) 40 mg PO QDAY [facility] Last Admin: 08/29/21 08:07 Dose: 40 mg Documented by: Bisacodyl (Bisacodyl 10 Mg Supp.Rect) 10 mg MO Q2-3DAYS PRN PRN Reason: Constipation Diagnostic Test (Pha) (Accu-Chek 1 Each Strip) 1 each FS ACHS [facility] Last Admin: 08/29/21 16:07 Dose: 1 each Documented by: Docusate Sodium (Docusate Sodium 100 Mg Capsule) 100 mg PO BID [facility] Last Admin: 08/29/21 09:21 Dose: Not Given Documented by: Hydroxychloroquine Sulfate (Hydroxychloroquine 200 Mg Tablet) 200 mg PO BID [facility] Last Admin: 08/29/21 08:07 Dose: 200 mg Documented by: Acetaminophen (Ofirmev) 650 mg in 65 mls @ 130 mls/hr IV Q6HP PRN; Protocol PRN Reason: Per Pain Protocol/Fever > 101 Insulin Human Lispro (Insulin Lispro 1 Unit/0.01 Ml Unit) 0 unit SQ [facility]; Protocol Last Admin: 08/29/21 12:45 Dose: Not Given Documented by: Labetalol HCl (Labetalol 5 Mg/Ml Ml) 0 mg IV Q2HP PRN PRN Reason: Hypertension Melatonin (Melatonin 3 Mg Tablet) 3 mg PO HSP PRN PRN Reason: Insomnia Last Admin: 08/23/21 21:09 Dose: 3 mg Documented by: Ondansetron HCl (Ondansetron 4 Mg Odt Tablet) 4 mg SL Q4-6HP PRN; Protocol PRN Reason: Nausea And Vomiting Ondansetron HCl (Ondansetron 4 Mg/2 Ml Vial) 4 mg IV Q4-6HP PRN; Protocol PRN Reason: Nausea And Vomiting Last Admin: 08/27/21 00:05 Dose: 4 mg Documented by: Polyethylene Glycol (Polyethylene Glycol 3350 17 Gm Packet) 17 gm PO DAILYP PRN PRN Reason: Constipation Last Admin: 08/26/21 08:03 Dose: 17 gm Documented by: Senna/Docusate Sodium (Sennosides/Docusate Sodium 1 Tab Tablet) 1 tab PO [facility] Last Admin: 08/28/21 21:55 Dose: 1 tab Documented by: Sodium Chloride (0.9 % Sodium Chloride 10 Ml Syringe) 10 ml IV Q8 [facility] Last Admin: 08/29/21 16:07 Dose: 10 ml Documented by: Tamsulosin HCl (Tamsulosin 0.4 Mg Capsule) 0.4 mg PO [facility] Last Admin: 08/28/21 21:55 Dose: 0.4 mg Documented by: A/P Assessment and plan (1) Type 2 diabetes mellitus: Status: Chronic Qualifiers: Diabetes mellitus complication status: without complication Diabetes mellitus technician terminal and repeater insulin use: without fpc use Qualified Code(s): E11.9 - Type 2 diabetes mellitus without complications (2) Hypertension, essential: Status: Chronic (3) Hyperlipidemia: Status: Chronic Qualifiers: Hyperlipidemia type: mixed hyperlipidemia Qualified Code(s): E78.2 - Mixed hyperlipidemia (4) [place] (acute kidney injury): Status: Acute (5) Obstructive uropathy: Status: Acute Narrative A/P Narrative: Assessment and Plans: 1. Acute kidney injury with obstructive uropathy: Urologist signed off: can be discharged home with Kat catheter and follow up with urologist Dr. Calvo to discuss further actions Dry Kil[employer] Dr. Ramirez signed off Serum Cr level normalizing, 1.0 today with baseline of 0.8 Continue fluid restriction CMP in the morning to trend kidney functions Flomax 2. Essential HTN: Amlodipine stopped after low-normal blood pressure 3. T2DM: SSI Diabetic diet 4. HLD: Continue statin therapy 5. Cigarette smoking status: Continue Nicotine patch therapy GI ppx: not currently indicated DVT ppx: SCds Code status: Full Prognosis: stable Disposition: inpatient med surg Time Spent With Patient Time: Total time spent is greater than 50% in coordination of care (as documented) at patient's floor/unit and/or counseling patient: Total time spent with greater than 50% in coordination of care (as documented) at patient's floor/unit and/or counseling patient:: Greater than 35 minutes QUALITY Stroke Symptom Onset Unknown: No VTE Deep Vein Thrombosis/Pulmonary Embolism Present on Admission: No
[2021-08-29] MEDS: TAMSULOSIN 0.4 MG CAPSULE PO SCH (21:17)
[2021-08-29] MEDS: SENNOSIDES/DOCUSATE SODIUM 1 TAB TABLET PO SCH (21:18)
[2021-08-30] MEDS: 0.9 % SODIUM CHLORIDE 10 ML SYRINGE IV SCH (05:54)
[2021-08-30] MEDS: INSULIN LISPRO 1 UNIT/0.01 ML UNIT SQ SCH ×2 (08:13→13:03)
[2021-08-30] MEDS: DOCUSATE SODIUM 100 MG CAPSULE PO SCH (09:26)
[2021-08-30] MEDS: HYDROXYCHLOROQUINE 200 MG TABLET PO SCH (09:26)
[2021-08-30] MEDS: ATORVASTATIN 40 MG TABLET PO SCH (09:26)
--- NOTE | 2021-08-30 10:29 | Discharge Summary ---
Discharge Provider Provider Patient information: Note initiated : 08/30/21 at 10:27 am Service Date, if different from initiated Date: [] Patient: Darell Askew 56 y/o M admitted on 08/22/21 for Sent here by PCP/abn labs. Chief Complaint: [] Date of admission: 08/22/21 22:20 Discharge date: 08/30/21 Primary care physician: Celeste Fontanez DO Attending physician on admission: Jefry Humphreys Consults: 08/22/21 Consult to Physician [CONS] Stat Comment: Consulting Provider: Jefry Humphreys Reason For Exam: Physician to Consult Consult to Physician [CONS] Stat Comment: Consulting Provider: Phu Calvo Reason For Exam: Physician to Consult Consult to Physician [CONS] Stat Comment: Consulting Provider: Aashish Albarran Reason For Exam: Physician to Consult Attending physician on discharge: Chi Alexander Pui Discharge Meds Discharge Medications Home Medications nicotine 14 mg/24 hr daily transdermal patch 1 patch TRANSDERMA Q24H #28 each 10/11/20 [Rx Confirmed 08/23/21 Last Taken Unknown] losartan 100 mg tablet 100 mg PO QDAY #90 tab 10/27/20 [Rx Confirmed 08/23/21 Last Taken Unknown] amlodipine 5 mg tablet (Norvasc) 5 mg PO QDAY #90 tab 01/11/21 [Rx Confirmed 08/23/21 Last Taken Unknown] atorvastatin 40 mg tablet 40 mg PO QDAY #90 tab 01/11/21 [Rx Confirmed 08/23/21 Last Taken Unknown] hydrochlorothiazide 25 mg tablet 25 mg PO QDAY #90 tab 01/11/21 [Rx Confirmed 08/23/21 Last Taken Unknown] metformin 750 mg tablet,extended release 24 hr 750 mg PO BID #60 tab 01/11/21 [Rx Confirmed 08/23/21 Last Taken Unknown] hydroxychloroquine 200 mg tablet 200 mg PO BID #180 tab 02/28/21 [Rx Confirmed 08/23/21 Last Taken Unknown] tamsulosin 0.4 mg capsule 0.4 mg PO HS #30 cap 08/26/21 [Rx Last Taken Unknown] COURSE Hospital Course Hospital course: Mr. Askew is a [address] Fontanez's patient with a history of HTN/DM type II/tobacco dependence/HLD who presents to the ER after being directed by PCP office with elevated creatinine of 10.5. Patient has been feeling weak fatigued and complaining of difficulty urination over the last couple of week. He has noted increasing abdominal distention, loss of appetite, fatigue, malaise, weakness and weight loss. He has been experiencing associated nausea/vomiting and has not been able to function over the last couple of weeks. He lives with his sister who has been helping him out during this time. He however denies cough, fever, chills, chest pain, rash, joint pain. He endorses to exertional shortness of breath Initial work-up in the ER was consistent with acute renal failure with a BUN of 195, creatinine 9.5. CT abdomen reveals bilateral hydronephrosis/obstructive uropathy. Kat's catheter was placed and subsequently nephrology was consulted. Patient had 2300 cc output following Kat's placement. Subsequently hospitalist service was consulted for admission. At the time of my evaluation patient is alert but anxious. He was able to answer most the questions. Denies NSAID intake, changes in medications. He denies hematuria, weight loss, shortness of breath but endorses to constipation over the few days. He also endorses to loss of appetite. 08/23-patient overnight on management per nephrology on 4 replacement half cc per 1 cc urine output. Extensive hematuria. Status post 22 [place] Kat's catheter placement with flushing. Hemoglobin down to 8 with a baseline hemoglobin 14. [place] blood transfusion today. Urology on board. Creatinine down to 5.5, BUN 131 down from 193, potassium 3.6. Feeling a lot better and appreciative of care. 08/24 No overnight event or new complaints. Still awaiting follow-up chemistry. Gross hematuria. 08/25 Patient no complaints no chest pain shortness of breath lightheadedness. He did have Ortho static changes in blood pressure. Still significant postobstructive diuresis causing orthostatic hypotension. Will give 500 cc of likely NS today 08/26 Doing well. Still putting a lot of the urine. Give some IV fluids today to keep up with balance and as soon as his urine output slows down and orthostatic vital signs are unremarkable will look at discharge. 08/27 Patient seems to be doing well no new complaints. However still putting out significant amount of urine, and his orthostatic vital signs are still positive. Did get IV fluid yesterday. BUN and creatinine much improved. Hypokalemia resolved. Phos a little low. 08/28 Patient missed to drinking several gallons of water daily on a typical day and has been doing this for long time. Placed amount of fluid restrict correction diet yesterday. Sodium came up 5 points. Still with significant urine output. Awaiting urine osmole update. Patient feels quite dry since putting him on the fluid restriction. 08/29: 2900ml urine output over the last 24 hour. Serum Cr level 1.0 today, baseline 0.8. Kat catheter still in. c/o thirsty. Denies any pain or discomfort. 08/30: Reached clinical stability. Discharged with Kat catheter. f/u with Dr. Calvo and Dr. Albarran in 1 week, respectively. Discharge diagnosis: Obstructive uropathy with post-obstructive diuresis Time Spent with Patient Time attestation: Total time spent providing and/or coordinating discharge services: Time spent: Less than 30 minutes EXAM Constitutional Vitals: Temp Pulse Resp BP Pulse Ox 36.0 C L 81 16 121/79 99 08/30/21 08:00 08/30/21 08:00 08/30/21 08:00 08/30/21 08:00 08/30/21 08:00 General appearance: cooperative and no acute distress Head Head exam: Present atraumatic and normocephalic Eye Eye exam: Present EOMI and PERRL ENT ENT exam: Present mucous membranes moist, normal exam and normal external ear exam Neck Neck exam: Present normal inspection; Absent lymphadenopathy, tenderness or thyromegaly Respiratory Respiratory exam: Absent accessory muscle use, respiratory distress or wheezes Cardiovascular Cardiovascular exam: Present normal rate and rhythm; Absent JVD GI/Abdominal GI/Abdominal exam: Present normal bowel sounds and soft; Absent organomegaly or tenderness Rectal Rectal exam: Present deferred Additional comments: Kat catheter in place Extremities Exam Extremities exam: Present full ROM, normal capillary refill and normal inspection; Absent tenderness Neurological Exam Neurological exam: Present alert, CN II-XII intact and oriented X3; Absent motor sensory deficit Psychiatric Psychiatric exam: Present normal affect and normal mood; Absent anxious or depressed Skin Skin exam: Present dry and intact Discharge Data Data Completed and Pending Labs on day of discharge: Labs from last 24 hours 08/29/21 08/29/21 08/29/21 11:48 11:48 05:09 Osmolality 301 H Urine Osmolality 301 Ur Random Creatinine 49.3 Discharge Plan Patient/Caregiver Discharge Instructions Activity: increase activity as tolerated Diet: Consistent Carbohydrate Instructions: Diabetes Insipidus (DC), Diabetes Insipidus (GEN) Activity Restrictions/Additional Instructions: 2L/day fluid restriction Prescriptions: New tamsulosin 0.4 mg Capsule 0.4 mg PO HS Qty: 30 0RF Continued losartan 100 mg tablet 100 mg PO QDAY Qty: 90 1RF hydroxychloroquine 200 mg tablet 200 mg PO BID Qty: 180 0RF metformin 750 mg tablet extended release 24 hr 750 mg PO BID Qty: 60 3RF Rx Instructions: administer with a meal amlodipine [Norvasc] 5 mg tablet 5 mg PO QDAY Qty: 90 1RF atorvastatin 40 mg tablet 40 mg PO QDAY Qty: 90 1RF hydrochlorothiazide 25 mg tablet 25 mg PO QDAY Qty: 90 1RF nicotine 14 mg/24 hr patch 24 hour 1 patch TRANSDERMA Q24H Qty: 28 6RF Label Comments: stopped patches and started smoking cigarettes again recently, per sister Chelsey Follow Up Plan Follow up with: Aashish Albarran MD [Physician] - Phu Calvo MD [Physician] - (Call to schedule an appointment in 1 week after discharge) Celeste Fontanez DO [Primary Care Provider] - Patient Disposition: Home, Self-Care Rehab Potential: Fair I certify that the patient requires SNF services: No Overall status at discharge: patient is progressing back to baseline Discharge Orders: Discharge Order (Routine); Ordered 08/30/21 Ordered By: Mohamud ERICKSON VTE Deep Vein Thrombosis/Pulmonary Embolism Present on Admission: No
== END 2021-08-30 16:22 | disposition home or self-care (01) | DRG 694 ==
LOC: ED 15:19 → ICU 22:16 → MEDSUR 08-27 10:15
PROVIDERS: ADMIT Internal Medicine; ATTEND Internal Medicine